=== PATIENT | male | born 1960 | race African-American/Black ===

== ENCOUNTER → 2019-12-28 | Outpatient (CLI) | payer MEDICARE, OTHER ==
--- NOTE | 2019-12-28 10:08 | CT ---
EXAMINATION TYPE: CT abdomen pelvis w con DATE OF EXAM: 12/28/2019 COMPARISON: Bilateral scrotal ultrasound 2013. HISTORY: gross hematuria CT DLP: 2470.8 mGycm, Automated Exposure Control for Dose Reduction was Utilized. CONTRAST: CT scan of the abdomen and pelvis is performed with oral and with IV Contrast, patient injected with 100 mL of Isovue 300. FINDINGS: LUNG BASES: Coronary artery calcification in the distal LAD is identified. There is 3 mm calcified no dule or granuloma anterior right lung base. LIVER/GB: No significant abnormality is appreciated. PANCREAS: No significant abnormality is seen. SPLEEN: No significant abnormality is seen. ADRENALS: No significant abnormality is seen. KIDNEYS: Symmetrical corticomedullary uptake and excretion without hydronephrosis seen bilaterally. No suspicious solid or cystic mass in either kidney. BOWEL: Oral contrast reaches level of the proximal sigmoid colon. There is no suspicious small or lar ge bowel dilatation. Small hiatal hernia is present. Normal-appearing appendix from base of cecum in the right lower quadrant. PROSTATE/SEMINAL VESICLES: Some central benign calcifications in the normal sized prostate gland. LYMPH NODES: No greater than 1cm abdominal or pelvic lymph nodes are appreciated. OSSEOUS STRUCTURES: [id number] multilevel disc space narrowing and vacuum disc phenomenon L2- L3 through the L4-L5 levels. Herniated disc with gas effaces the anterior thecal sac at L2-L3 level. Posterior spur disc complex effacing the anterior thecal sac L4-L5 level. Sacralized left L5 segment noted. Multilevel facet arthropathy in the mid to lower lumbar spine. OTHER: Mild/moderate calcified plaque of the abdominal aorta extends into branch vessels. Moderate to large sized bilateral scrotal fluid collection or hydroceles redemonstrated correlates with 2014 ult rasound. IMPRESSION: Source of hematuria not identified. No suspicious acute findings seen.
== END | disposition home or self-care (01) ==
LOC: RADCTMAIN 07:03
PROVIDERS: ATTEND Family Medicine
DX: R31.9 Hematuria, unspecified (principal)
CPT/HCPCS: 74177; Q9967

== ENCOUNTER 2022-08-01 13:43 | Emergency (ER) | payer MEDICARE, OTHER ==
[2022-08-01 13:52] VITALS: TEMP 98.4
[2022-08-01] MEDS ORDERED: ACETAMINOPHEN TAB 500 MG TAB PO STA (14:17)
--- NOTE | 2022-08-01 14:28 | ED ---
URI HPI - General Chief Complaint: Upper Respiratory Infection Stated Complaint: Abd pain Time Seen by Provider: 08/01/22 13:55 Source: patient, RN notes reviewed Mode of arrival: ambulatory Limitations: no limitations - History of Present Illness Initial Comments: 61-year-old male presents emergency Department chief complaint of cough and cold-like symptoms. Patient states he's been sick for 3 days states he has mild congestion, minimal cough no shortness of breath or chest pain. Patient states that he believes had fever, chills and sweats he does admit that he's had sore throat patient denies any other associated symptoms no associated sick contacts. - Related Data Home Medications Medication Instructions Recorded Confirmed Finasteride [Proscar] 5 mg PO DAILY 08/01/22 08/01/22 Ibuprofen [Motrin] 800 mg PO BID PRN 08/01/22 08/01/22 Latanoprost [Latanoprost 0.005%] 1 drop BOTH EYES HS 08/01/22 08/01/22 Simvastatin [Zocor] 20 mg PO DAILY 08/01/22 08/01/22 Tamsulosin HCl [Flomax] 0.4 mg PO DAILY 08/01/22 08/01/22 amLODIPine [Norvasc] 10 mg PO DAILY 08/01/22 08/01/22 lisinopriL [Zestril] 20 mg PO DAILY 08/01/22 08/01/22 Previous Rx's Medication Instructions Recorded Azithromycin [Zithromax Z Pack] 0 tab PO DIRECTED #6 tab 08/01/22 Allergies Allergy/AdvReac Type Severity Reaction Status Date / Time Penicillins Allergy Severe Unknown Verified 08/01/22 13:52 Review of Systems ROS Statement: Those systems with pertinent positive or pertinent negative responses have been documented in the HPI. ROS Other: All systems not noted in ROS Statement are negative. Past Medical History Past Medical History: CVA/TIA, Hypertension History of Any Multi-Drug Resistant Organisms: MRSA, None Reported Date of last positivie culture/infection: 01/30/2013 MDRO Source:: left leg and back Past Surgical History: Tonsillectomy Past Anesthesia/Blood Transfusion Reactions: No Reported Reaction Past Psychological History: No Psychological Hx Reported Smoking Status: Current every day smoker Past Alcohol Use History: None Reported Past Drug Use History: None Reported - Past Family History Father Family Medical History: Cancer Mother Family Medical History: Cancer Sister(s) Family Medical History: Cancer General Exam Limitations: no limitations General appearance: alert, in no apparent distress Head exam: Present: atraumatic, normocephalic, normal inspection Eye exam: Present: normal appearance, PERRL, EOMI. Absent: scleral icterus, conjunctival injection, periorbital swelling ENT exam: Present: mucous membranes moist. Absent: normal oropharynx Neck exam: Present: normal inspection. Absent: tenderness, meningismus, lymphadenopathy Respiratory exam: Present: normal lung sounds bilaterally. Absent: respiratory distress, wheezes, rales, rhonchi, stridor Cardiovascular Exam: Present: regular rate, normal rhythm, normal heart sounds. Absent: systolic murmur, diastolic murmur, rubs, gallop, clicks Course Vital Signs 08/01/22 13:48 Temperature 98.4 F Pulse Rate 122 H Respiratory 18 Rate Blood Pressure 123/83 O2 Sat by Pulse 97 Oximetry Medical Decision Making - Medical Decision Making Was pt. sent in by a medical professional or institution ([facility]YST[facility] Bloom, INBOUND CALL CENTER AGENT, urgent care, hospital, or care home...) When possible be specific @ -None Did you speak to anyone other than the patient for history (EMS, parent, family, police, friend...)? What history was obtained from this source @ -No Did you review nursing and triage notes (agree or disagree)? Why? @ -I reviewed and agree with nursing and triage notes Were old charts reviewed (outside hosp., previous admission, EMS record, old EKG, old radiological studies, urgent care reports/EKG's, care home records)? Report findings @ -No old charts were reviewed Differential Diagnosis (chest pain, altered mental status, abdominal pain women, abdominal pain men, vaginal bleeding, weakness, fever, dyspnea, syncope, he adache, dizziness, GI bleed, back pain, seizure, CVA, palpatations, mental health, musculoskeletal)? @ -URI, pneumonia, bronchitis, strep pharyngitis, RSV, covid 19 EKG interpreted by me (3pts min.). @ -As above X-rays interpreted by me (1pt min.). @ -Chest x-ray shows no acute process CT interpreted by me (1pt min.). @ -None done U/S interpreted by me (1pt. min.). @ -None done What testing was considered but not performed or refused? (CT, X-rays, U/S, labs)? Why? @ -None What meds were considered but not given or refused? Why? @ -None Did you discuss the management of the patient with other professionals (professionals i.e. , PA, INBOUND CALL CENTER AGENT, lab, RT, psych nurse, home health care social worker, flue blower, teacher, police commanding officer, case picker)? Give summary @ -No Was smoking cessation discussed for >3mins.? @ -No Was critical care preformed (if so, how long)? @ -No Were there social determinants of health that impacted care today? How? (Homelessness, low income, unemployed, alcoholism, drug addiction, transportation, low edu. Level, literacy, decrease access to med. care, penitentiary, rehab)? @ -No Was there de-escalation of care discussed even if they declined (Discuss DNR or withdrawal of care, Hospice)? DNR status @ -No What co-morbidities impacted this encounter? (DM, HTN, Smoking, COPD, CAD, Cancer, CVA, ARF, Chemo, Hep., AIDS, mental health diagnosis, sleep apnea, morbid obesity)? @ -None Was patient admitted / discharged? Hospital course, mention meds given and route, prescriptions, significant lab abnormalities, going to OR and other pertinent info. @ -Discharge patient has negative swab, x-ray doesn't show definite pneumonia, possible early changes patient treated for tracheobronchitis return parameters were discussed. Undiagnosed new problem with uncertain prognosis? @ -No Drug Therapy requiring intensive monitoring for toxicity (Heparin, Nitro, Insulin, Cardizem)? @ -No Were any procedures done? @ -No Diagnosis/symptom? @ -Tracheobronchitis Acute, or Chronic, or Acute on Chronic? @ -Acute Uncomplicated (without systemic symptoms) or Complicated (systemic symptoms)? @ -Uncomplicated Side effects of treatment? @ -No Exacerbation, Progression, or Severe Exacerbation? @ -No Poses a threat to life or bodily function? How? (Chest pain, [place], [place], pneumonia, PE, COPD, DKA, ARF, appy, cholecystitis, CVA, Diverticulitis, Homicidal, Suicidal, threat to staff... and all critical care pts) @ -No - Lab Data Lab Results 08/01/22 08/01/22 Range/Units 14:37 14:37 Influenza Type A (PCR) Not Detected (Not Detectd) Influenza Type B (PCR) Not Detected (Not Detectd) RSV (PCR) Not Detected (Not Detectd) SARS-CoV-2 (PCR) Not Detected (Not Detectd) Group A Strep (PCR) NOT DETECTED (Not Detectd) Disposition Clinical Impression: Tracheobronchitis Disposition: HOME SELF-CARE Condition: Stable Instructions (If sedation given, give patient instructions): Upper Respiratory Infection (ED) Additional Instructions: Please return to the Emergency Department if symptoms worsen or any other concerns. Prescriptions: Azithromycin [Zithromax Z Pack] 0 tab PO DIRECTED #6 tab Is patient prescribed a controlled substance at d/c from ED?: No Referrals: David Dempsey III, MD [Primary Care Provider] - 1-2 days Time of Disposition: 15:49
--- NOTE | 2022-08-01 14:33 | XR ---
EXAMINATION TYPE: XR chest 2V DATE OF EXAM: 08/01/2022 COMPARISON: NONE TECHNIQUE: PA and lateral views submitted. HISTORY: Shortness of breath FINDINGS: The lungs are clear and there is no pneumothorax, pleural effusion, or focal pneumonia. Heart size normal and no overt failure. Osseous structures demonstrate hypertrophic and degenerative changes of the spine. IMPRESSION: 1. No acute process.
[2022-08-01 16:28] VITALS: BP 124/75; PULSE 69; RESP 22
== END 2022-08-01 16:30 | disposition home or self-care (01) ==
LOC: EC 13:43
DX: J40 Bronchitis, not specified as acute or chronic (principal); I10 Essential (primary) hypertension; F17.200 Nicotine dependence, unspecified, uncomplicated; Z20.822 Contact with and (suspected) exposure to COVID-19; Z86.73 Personal history of transient ischemic attack (TIA), and cerebral infarction without residual deficits; Z79.899 Other long term (current) drug therapy; Z88.0 Allergy status to penicillin
CPT/HCPCS: 71046; 87636; 87651; 99284

== ENCOUNTER 2022-08-02 18:11 | Inpatient (IN) | payer MEDICARE, OTHER ==
[2022-08-02] MEDS ORDERED: SODIUM CHLORIDE 0.9% 1,000 ML IV STA (18:30)
[2022-08-02] MEDS ORDERED: SODIUM CHLORIDE 0.9% 1,000 ML IV ONE (18:31)
[2022-08-02 18:32] LABS: Glucose,Whole Blood >600 mg/dL (70-110)
--- NOTE | 2022-08-02 18:37 | ED ---
General Adult HPI - General Chief complaint: Shortness of Breath Stated complaint: sob Time Seen by Provider: 08/02/22 18:24 Source: patient, RN notes reviewed, old records reviewed Mode of arrival: ambulatory Limitations: altered mental status - History of Present Illness Initial comments: 61-year-old male presenting with weakness and confusion. History is obtained from the patient's daughter who is at bedside. He's had 6 previous CVA over the past several days he's had cough and upper respiratory symptoms. Today he was somewhat more confused than normal and appeared to be breathing rapidly.. History is very limited. - Related Data Home Medications Medication Instructions Recorded Confirmed Finasteride [Proscar] 5 mg PO DAILY 08/01/22 08/02/22 Ibuprofen [Motrin] 800 mg PO BID PRN 08/01/22 08/02/22 Latanoprost [Latanoprost 0.005%] 1 drop BOTH EYES HS 08/01/22 08/02/22 Simvastatin [Zocor] 20 mg PO DAILY 08/01/22 08/02/22 Tamsulosin HCl [Flomax] 0.4 mg PO DAILY 08/01/22 08/02/22 amLODIPine [Norvasc] 10 mg PO DAILY 08/01/22 08/02/22 lisinopriL [Zestril] 20 mg PO DAILY 08/01/22 08/02/22 Azithromycin [Zithromax Z Pack] See Taper PO DAILY 08/02/22 08/02/22 Allergies Allergy/AdvReac Type Severity Reaction Status Date / Time Penicillins Allergy Severe Burgos on Verified 08/02/22 21:10 skin Review of Systems ROS Statement: Those systems with pertinent positive or pertinent negative responses have been documented in the HPI. ROS Other: All systems not noted in ROS Statement are negative. Past Medical History Past Medical History: CVA/TIA, Hypertension History of Any Multi-Drug Resistant Organisms: MRSA, None Reported Date of last positivie culture/infection: 01/30/2013 MDRO Source:: left leg and back Past Surgical History: Tonsillectomy Past Anesthesia/Blood Transfusion Reactions: No Reported Reaction Past Psychological History: No Psychological Hx Reported Smoking Status: Current every day smoker Past Alcohol Use History: None Reported Past Drug Use History: None Reported - Past Family History Father Family Medical History: Cancer Mother Family Medical History: Cancer Sister(s) Family Medical History: Cancer General Exam Limitations: no limitations General appearance: lethargic, in distress Head exam: Present: atraumatic, normocephalic Eye exam: Present: normal appearance, PERRL ENT exam: Present: mucous membranes dry Respiratory exam: Present: other (Tachypnea with good air entry) Cardiovascular Exam: Present: normal rhythm, tachycardia GI/Abdominal exam: Present: soft. Absent: distended, tenderness, guarding, rebound Extremities exam: Present: normal inspection, normal capillary refill. Absent: pedal edema, calf tenderness Neurological exam: Absent: alert, oriented X3 Skin exam: Present: warm, dry, intact Course Vital Signs 08/02/22 08/02/22 08/02/22 18:12 19:07 20:16 Temperature 97.9 F Pulse Rate 118 H 101 H 98 Respiratory 24 24 22 Rate Blood Pressure 76/53 123/52 114/73 O2 Sat by Pulse 96 98 98 Oximetry 08/02/22 08/02/22 08/03/22 22:47 23:57 00:00 Temperature 97.9 F Pulse Rate 108 H 99 98 Respiratory 28 H 19 12 Rate Blood Pressure 93/54 89/53 O2 Sat by Pulse 95 88 L Oximetry - Reevaluation(s) Reevaluation #1: 08/02/22 22:[address] Jurado, will admit to ICU EKG Findings - EKG Comments: EKG Findings:: Sinus tachycardia rate of 1:15, MT interval 123 QRS duration 93, QTC [address] segment elevation Medical Decision Making - Medical Decision Making Was pt. sent in by a medical professional or institution (, PA, COMMISSARY WORKER, urgent care, hospital, or alf...) When possible be specific @ -No Did you speak to anyone other than the patient for history (EMS, parent, family, police, friend...)? What history was obtained from this source @ -No Did you review nursing and triage notes (agree or disagree)? Why? @ -I reviewed and agree with nursing and triage notes Were old charts reviewed (outside hosp., previous admission, EMS record, old EKG, old radiological studies, urgent care reports/EKG's, alf records)? Report findings @ -[Reviewed previous ER visits Differential Diagnosis (chest pain, altered mental status, abdominal pain women, abdominal pain men, vaginal bleeding, weakness, fever, dyspnea, syncope, headache, dizziness, GI bleed, back pain, seizure, CVA, palpatations, mental health, musculoskeletal)? @ -Differential Weakness: Hypoglycemia, shock, sepsis, hyponatremia, anemia, infection, OK, ETOH, adverse medicine reaction, overdose, stroke, this is not meant to be an all-inclusive list. EKG interpreted by me (3pts min.). @ -As above X-rays interpreted by me (1pt min.). @Negative for acute cardiopulmonary findings CT interpreted by me (1pt min.). @ -None done U/S interpreted by me (1pt. min.). @ -None done What testing was considered but not performed or refused? (CT, X-rays, U/S, labs)? Why? @ -None What meds were considered but not given or refused? Why? @ -None Did you discuss the management of the patient with other professionals (professionals i.e. , PA, COMMISSARY WORKER, lab, RT, psych nurse, social media content manager, sleeve ironer, teacher, disability liaison officer, mattress spring encaser)? Give summary @Case discussed with Anurag dunbar for [facility] Was smoking cessation discussed for >3mins.? @ -No Was critical care preformed (if so, how long)? @ -[yes Were there social determinants of health that impacted care today? How? (Homeles sness, low income, unemployed, alcoholism, drug addiction, transportation, low edu. Level, literacy, decrease access to med. care, prison, rehab)? @ -No Was there de-escalation of care discussed even if they declined (Discuss DNR or withdrawal of care, Hospice)? DNR status @ -No What co-morbidities impacted this encounter? (DM, HTN, Smoking, COPD, CAD, Cancer, CVA, ARF, Chemo, Hep., AIDS, mental health diagnosis, sleep apnea, morbid obesity)? @ -[CVA Was patient admitted / discharged? Hospital course, mention meds given and route, prescriptions, significant lab abnormalities, going to OR and other pertinent info. @61-year-old male presenting with chief complaint of dyspnea, weakness. Patient has Kussmaul respiration, concern for new onset diabetes and DKA. Blood sugar read high. Laboratory testing is performed which reveals a leukocytosis which I suspect is reactive at 23. His potassium is 6.0 this is treated with IV fluids and IV insulin. He is acidotic from multiple sources including diabetic ketoacidosis, lactic acidosis and uremia secondary to acute renal failure with a creatinine of 3.45. His blood sugars 1357. He is acetone positive. No urine output throughout his initial 2 hours in the emergency department. Johnson catheter will be placed. He will be continued on normal saline and IV insulin. He's admitted to internal medicine. Vital signs have significant improvement while in the emergency department. Undiagnosed new problem with uncertain prognosis? @ -No Drug Therapy requiring intensive monitoring for toxicity (Heparin, Nitro, Insulin, Cardizem)? @ -No Were any procedures done? @ -No Diagnosis/symptom? @New-onset diabetes, DKA, acute renal failure Acute, or Chronic, or Acute on Chronic? @Acute Uncomplicated (without systemic symptoms) or Complicated (systemic symptoms)? @Complicated Side effects of treatment? @ -No Exacerbation, Progression, or Severe Exacerbation? @ -No Poses a threat to life or bodily function? How? (Chest pain, USA, OK, pneumonia, PE, COPD, DKA, ARF, appy, cholecystitis, CVA, Diverticulitis, Homicidal, Suicidal, threat to staff... and all critical care pts) @ -[Yes, DKA, hypovolemia, shock - Lab Data Result diagrams: 08/06/22 06:43 08/06/22 06:43 Lab Results 08/02/22 08/02/22 08/02/22 Range/Units 18:31 18:33 18:33 WBC 23.4 H (3.8-10.6) k/uL RBC 5.17 (4.30-5.90) m/uL Hgb 15.5 (13.0-17.5) gm/dL Hct 54.6 H (39.0-53.0) % MCV 105.8 H (80.0-100.0) fL MCH 30.0 (25.0-35.0) pg MCHC 28.4 L (31.0-37.0) g/dL RDW 13.0 (11.5-15.5) % Plt Count 226 (150-450) k/uL MPV 10.1 Neutrophils % 91 % Lymphocytes % 3 % Monocytes % 4 % Eosinophils % 1 % Basophils % 0 % Neutrophils # 21.2 H (1.3-7.7) k/uL Lymphocytes # 0.8 L (1.0-4.8) k/uL Monocytes # 1.0 (0-1.0) k/uL Eosinophils # 0.2 (0-0.7) k/uL Basophils # 0.0 (0-0.2) k/uL Hypochromasia Marked Macrocytosis Moderate PT 10.6 (9.0-12.0) sec INR 1.0 (<1.2) APTT 19.7 L (22.0-30.0) sec VBG pH (7.31-7.41) VBG pCO2 (37-51) mmHg VBG HCO3 (24-28) mmol/L Sodium (137-145) mmol/L Potassium (3.5-5.1) mmol/L Chloride (98-107) mmol/L Carbon Dioxide (22-30) mmol/L Anion Gap mmol/L BUN (9-20) mg/dL Creatinine (0.66-1.25) mg/dL Est GFR (CKD-EPI)AfAm (>60 ml/min/1.73 sqM) Est GFR (CKD-EPI)NonAf (>60 ml/min/1.73 sqM) Glucose (74-99) mg/dL POC Glucose (mg/dL) >600 H (70-110) mg/dL POC Glu Rack Pusher ID Macey Morton Lactic Ac Sepsis Rflx Plasma Lactic Acid Rom (0.7-2.0) mmol/L Calcium (8.4-10.2) mg/dL Magnesium (1.6-2.3) mg/dL Total Bilirubin (0.2-1.3) mg/dL AST (17-59) U/L ALT (4-49) U/L Alkaline Phosphatase (38-126) U/L Troponin I (0.000-0.034) ng/mL Total Protein (6.3-8.2) g/dL Albumin (3.5-5.0) g/dL Urine Color Urine Appearance (Clear) Urine pH (5.0-8.0) Ur Specific Bath (1.001-1.035) Urine Protein (Negative) Urine Glucose (UA) (Negative) Urine Ketones (Negative) Urine Blood (Negative) Urine Nitrite (Negative) Urine Bilirubin (Negative) Urine Urobilinogen (<2.0) mg/dL Ur Leukocyte Esterase (Negative) Acetone, Qual (Negative) Influenza Type A (PCR) (Not Detectd) Influenza Type B (PCR) (Not Detectd) RSV (PCR) (Not Detectd) SARS-CoV-2 (PCR) (Not Detectd) 08/02/22 08/02/22 08/02/22 Range/Units 18:33 18:33 18:33 WBC (3.8-10.6) k/uL RBC (4.30-5.90) m/uL Hgb (13.0-17.5) gm/dL Hct (39.0-53.0) % MCV (80.0-100.0) fL MCH (25.0-35.0) pg MCHC (31.0-37.0) g/dL RDW (11.5-15.5) % Plt Count (150-450) k/uL MPV Neutrophils % % Lymphocytes % % Monocytes % % Eosinophils % % Basophils % % Neutrophils # (1.3-7.7) k/uL Lymphocytes # (1.0-4.8) k/uL Monocytes # (0-1.0) k/uL Eosinophils # (0-0.7) k/uL Basophils # (0-0.2) k/uL Hypochromasia Macrocytosis PT (9.0-12.0) sec INR (<1.2) APTT (22.0-30.0) sec VBG pH (7.31-7.41) VBG pCO2 (37-51) mmHg VBG HCO3 (24-28) mmol/L Sodium 134 L (137-145) mmol/L Potassium 6.0 H (3.5-5.1) mmol/L Chloride 92 L (98-107) mmol/L Carbon Dioxide 16 L (22-30) mmol/L Anion Gap 26 mmol/L BUN 68 H (9-20) mg/dL Creatinine 3.45 H (0.66-1.25) mg/dL Est GFR (CKD-EPI)AfAm 21 (>60 ml/min/1.73 sqM) Est GFR (CKD-EPI)NonAf 18 (>60 ml/min/1.73 sqM) Glucose 1357 H* (74-99) mg/dL POC Glucose (mg/dL) (70-110) mg/dL POC Glu Rack Pusher ID Lactic Ac Sepsis Rflx Plasma Lactic Acid Rom 3.8 H* (0.7-2.0) mmol/L Calcium 9.7 (8.4-10.2) mg/dL Magnesium 3.3 H (1.6-2.3) mg/dL Total Bilirubin 0.7 (0.2-1.3) mg/dL AST 21 (17-59) U/L ALT 24 (4-49) U/L Alkaline Phosphatase 153 H (38-126) U/L Troponin I 0.027 (0.000-0.034) ng/mL Total Protein 6.2 L (6.3-8.2) g/dL Albumin 4.1 (3.5-5.0) g/dL Urine Color Urine Appearance (Clear) Urine pH (5.0-8.0) Ur Specific Bath (1.001-1.035) Urine Protein (Negative) Urine Glucose (UA) (Negative) Urine Ketones (Negative) Urine Blood (Negative) Urine Nitrite (Negative) Urine Bilirubin (Negative) Urine Urobilinogen (<2.0) mg/dL Ur Leukocyte Esterase (Negative) Acetone, Qual Positive (Negative) Influenza Type A (PCR) (Not Detectd) Influenza Type B (PCR) (Not Detectd) RSV (PCR) (Not Detectd) SARS-CoV-2 (PCR) (Not Detectd) 08/02/22 08/02/22 08/02/22 Range/Units 18:33 18:33 18:33 WBC (3.8-10.6) k/uL RBC (4.30-5.90) m/uL Hgb (13.0-17.5) gm/dL Hct (39.0-53.0) % MCV (80.0-100.0) fL MCH (25.0-35.0) pg MCHC (31.0-37.0) g/dL RDW (11.5-15.5) % Plt Count (150-450) k/uL MPV Neutrophils % % Lymphocytes % % Monocytes % % Eosinophils % % Basophils % % Neutrophils # (1.3-7.7) k/uL Lymphocytes # (1.0-4.8) k/uL Monocytes # (0-1.0) k/uL Eosinophils # (0-0.7) k/uL Basophils # (0-0.2) k/uL Hypochromasia Macrocytosis PT (9.0-12.0) sec INR (<1.2) APTT (22.0-30.0) sec VBG pH 7.32 (7.31-7.41) VBG pCO2 38 (37-51) mmHg VBG HCO3 19 L (24-28) mmol/L Sodium (137-145) mmol/L Potassium (3.5-5.1) mmol/L Chloride (98-107) mmol/L Carbon Dioxide (22-30) mmol/L Anion Gap mmol/L BUN (9-20) mg/dL Creatinine (0.66-1.25) mg/dL Est GFR (CKD-EPI)AfAm (>60 ml/min/1.73 sqM) Est GFR (CKD-EPI)NonAf (>60 ml/min/1.73 sqM) Glucose (74-99) mg/dL POC Glucose (mg/dL) (70-110) mg/dL POC Glu Rack Pusher ID Lactic Ac Sepsis Rflx Plasma Lactic Acid Rom (0.7-2.0) mmol/L Calcium (8.4-10.2) mg/dL Magnesium (1.6-2.3) mg/dL Total Bilirubin (0.2-1.3) mg/dL AST (17-59) U/L ALT (4-49) U/L Alkaline Phosphatase (38-126) U/L Troponin I (0.000-0.034) ng/mL Total Protein (6.3-8.2) g/dL Albumin (3.5-5.0) g/dL Urine Color Light Yellow Urine Appearance Clear (Clear) Urine pH 5.0 (5.0-8.0) Ur Specific Bath 1.027 (1.001-1.035) Urine Protein Negative (Negative) Urine Glucose (UA) 4+ H (Negative) Urine Ketones 1+ H (Negative) Urine Blood Negative (Negative) Urine Nitrite Negative (Negative) Urine Bilirubin Negative (Negative) Urine Urobilinogen <2.0 (<2.0) mg/dL Ur Leukocyte Esterase Negative (Negative) Acetone, Qual (Negative) Influenza Type A (PCR) Not Detected (Not Detectd) Influenza Type B (PCR) Not Detected (Not Detectd) RSV (PCR) Not Detected (Not Detectd) SARS-CoV-2 (PCR) Not Detected (Not Detectd) 08/02/22 Range/Units 19:25 WBC (3.8-10.6) k/uL RBC (4.30-5.90) m/uL Hgb (13.0-17.5) gm/dL Hct (39.0-53.0) % MCV (80.0-100.0) fL MCH (25.0-35.0) pg MCHC (31.0-37.0) g/dL RDW (11.5-15.5) % Plt Count (150-450) k/uL MPV Neutrophils % % Lymphocytes % % Monocytes % % Eosinophils % % Basophils % % Neutrophils # (1.3-7.7) k/uL Lymphocytes # (1.0-4.8) k/uL Monocytes # (0-1.0) k/uL Eosinophils # (0-0.7) k/uL Basophils # (0-0.2) k/uL Hypochromasia Macrocytosis PT (9.0-12.0) sec INR (<1.2) APTT (22.0-30.0) sec VBG pH (7.31-7.41) VBG pCO2 (37-51) mmHg VBG HCO3 (24-28) mmol/L Sodium (137-145) mmol/L Potassium (3.5-5.1) mmol/L Chloride (98-107) mmol/L Carbon Dioxide (22-30) mmol/L Anion Gap mmol/L BUN (9-20) mg/dL Creatinine (0.66-1.25) mg/dL Est GFR (CKD-EPI)AfAm (>60 ml/min/1.73 sqM) Est GFR (CKD-EPI)NonAf (>60 ml/min/1.73 sqM) Glucose (74-99) mg/dL POC Glucose (mg/dL) (70-110) mg/dL POC Glu Rack Pusher ID Lactic Ac Sepsis Rflx Y Plasma Lactic Acid Rom (0.7-2.0) mmol/L Calcium (8.4-10.2) mg/dL Magnesium (1.6-2.3) mg/dL Total Bilirubin (0.2-1.3) mg/dL AST (17-59) U/L ALT (4-49) U/L Alkaline Phosphatase (38-126) U/L Troponin I (0.000-0.034) ng/mL Total Protein (6.3-8.2) g/dL Albumin (3.5-5.0) g/dL Urine Color Urine Appearance (Clear) Urine pH (5.0-8.0) Ur Specific Bath (1.001-1.035) Urine Protein (Negative) Urine Glucose (UA) (Negative) Urine Ketones (Negative) Urine Blood (Negative) Urine Nitrite (Negative) Urine Bilirubin (Negative) Urine Urobilinogen (<2.0) mg/dL Ur Leukocyte Esterase (Negative) Acetone, Qual (Negative) Influenza Type A (PCR) (Not Detectd) Influenza Type B (PCR) (Not Detectd) RSV (PCR) (Not Detectd) SARS-CoV-2 (PCR) (Not Detectd) Critical Care Time Critical Care Time: Yes Total Critical Care Time: 35 Disposition Clinical Impression: Acute renal failure, DKA (diabetic ketoacidosis), Lactic acidosis, Hyperosmolar hyperglycemic state (HHS) Disposition: ADMITTED IP TO THIS HOSP Condition: Serious Is patient prescribed a controlled substance at d/c from ED?: No Time of Disposition: 20:41
[2022-08-02 18:55] LABS: VBG PH 7.32 (7.31-7.41)
[2022-08-02 18:57] LABS: Basophils % (A) 0 %; Eosinophils # (A) 0.2 k/uL (0-0.7); Eosinophils % (A) 1 %; HCT 54.6 % (39.0-53.0); HGB 15.5 gm/dL (13.0-17.5); Hypochromasia Marked; Lymphocytes # (A) 0.8 k/uL (1.0-4.8); Lymphocytes % (A) 3 %; MCHC 28.4 g/dL (31.0-37.0); MCV 105.8 fL (80.0-100.0); Macrocytosis Moderate; Mean Platelet Volume 10.1; Monocytes % (A) 4 %; Neutrophils # (A) 21.2 k/uL (1.3-7.7); Neutrophils % (A) 91 %; Platelet Count 226 k/uL (150-450); RBC 5.17 m/uL (4.30-5.90); WBC 23.4 k/uL (3.8-10.6)
--- NOTE | 2022-08-02 19:02 | XR ---
EXAMINATION TYPE: XR chest 1V portable DATE OF EXAM: 08/02/2022 6:50 PM COMPARISON: Chest radiographs from 08/01/2022 TECHNIQUE: XR chest 1V portable Portable AP radiograph of the chest. CLINICAL INDICATION:Male, 61 years old with history of charlie; FINDINGS: Lungs/Pleura: There is no evidence of pleural effusion, focal consolidation, or pneumothorax. Pulmonary vascularity: Unremarkable. Heart/mediastinum: Cardiomediastinal silhouette is unremarkable. Musculoskeletal: No acute osseous pathology. Degenerative changes of the thoracic spine. IMPRESSION: No acute cardiopulmonary disease/process. No significant change from prior examination.
[2022-08-02 19:10] LABS: Prothrombin Time 10.6 sec (9.0-12.0)
[2022-08-02 19:22] LABS: ALT 24 U/L (4-49); AST 21 U/L (17-59); African American GFR (CKD) 21 (>60 ml/min/1.73 sqM); Albumin 4.1 g/dL (3.5-5.0); Alkaline Phosphatase 153 U/L (38-126); Anion Gap 26 mmol/L; Blood Urea Nitrogen 68 mg/dL (9-20); Calcium 9.7 mg/dL (8.4-10.2); Carbon Dioxide 16 mmol/L (22-30); Chloride 92 mmol/L (98-107); Magnesium 3.3 mg/dL (1.6-2.3); Non-African American GFR(CKD) 18 (>60 ml/min/1.73 sqM); Sodium 134 mmol/L (137-145); Total Bilirubin 0.7 mg/dL (0.2-1.3); Total Protein 6.2 g/dL (6.3-8.2)
[2022-08-02 19:27] LABS: Partial Thromboplastin Time 19.7 sec (22.0-30.0)
[2022-08-02] MEDS ORDERED: INSULIN REGULAR BOLUS (FROM DRIP BAG) IV ONE (20:00)
[2022-08-02] MEDS: SODIUM CHLORIDE 0.9% 1,000 ML IV SCH (20:14)
[2022-08-02 20:32] LABS: Glucose 1357 mg/dL (74-99)
[2022-08-02] MEDS: INSULIN REGULAR 100 UNIT in SODIUM CHLORIDE 0.9% 100 ML IV SCH (20:49)
[2022-08-02 21:30] LABS: Glucose,Whole Blood >600 mg/dL (70-110)
[2022-08-02 23:00] LABS: Glucose,Whole Blood >600 mg/dL (70-110)
[2022-08-02 23:08] LABS: Potassium 5.2 mmol/L (3.5-5.1)
[2022-08-02 23:57] LABS: Glucose,Whole Blood >600 mg/dL (70-110)
[2022-08-03] MEDS: SODIUM CHLORIDE 0.9% 1,000 ML IV SCH ×2 (00:41→06:11)
[2022-08-03 00:58] LABS: Appearance,Urine Clear (Clear); Bilirubin,Urine Negative (Negative); Blood,Urine Negative (Negative); Color,Urine Light Yellow; Glucose,Urine (UA) 4+ (Negative); Ketones,Urine 1+ (Negative); Leukocyte Esterase,Urine Negative (Negative); Nitrite,Urine Negative (Negative); Protein,Urine Negative (Negative); Specific Gravity,Urine 1.027 (1.001-1.035); Urobilinogen,Urine <2.0 mg/dL (<2.0)
[2022-08-03] MEDS ORDERED: HALOPERIDOL LACTATE 5 MG/ML 1 ML VIAL IVP ONE (01:58)
[2022-08-03 02:58] LABS: Phosphorus 3.2 mg/dL (2.5-4.5)
[2022-08-03 05:00] LABS: Glucose,Whole Blood 424 mg/dL (70-110)
[2022-08-03 06:05] LABS: Glucose,Whole Blood 308 mg/dL (70-110)
[2022-08-03] MEDS: INSULIN REGULAR 100 UNIT in SODIUM CHLORIDE 0.9% 100 ML IV SCH (06:26)
[2022-08-03 07:00] LABS: Glucose,Whole Blood 243 mg/dL (70-110)
[2022-08-03] MEDS ORDERED: D5-0.45% NACL WITH KCL 20MEQ/L 1,000 ML IV SCH (07:00)
[2022-08-03] MEDS ORDERED: ONDANSETRON 4 MG/2 ML VIAL IVP PRN (07:37)
[2022-08-03 08:05] LABS: Glucose,Whole Blood 187 mg/dL (70-110)
[2022-08-03 08:25] LABS: Calcium 9.2 mg/dL (8.4-10.2); Magnesium 3.3 mg/dL (1.6-2.3); Potassium 4.3 mmol/L (3.5-5.1)
[2022-08-03 08:50] LABS: Basophils % (A) 0 %; Eosinophils # (A) 0.1 k/uL (0-0.7); Eosinophils % (A) 0 %; HGB 14.2 gm/dL (13.0-17.5); Lymphocytes # (A) 1.8 k/uL (1.0-4.8); Lymphocytes % (A) 7 %; MCH 29.8 pg (25.0-35.0); MCHC 31.5 g/dL (31.0-37.0); Monocytes # (A) 1.2 k/uL (0-1.0); Monocytes % (A) 5 %; Neutrophils # (A) 20.3 k/uL (1.3-7.7); Neutrophils % (A) 86 %; Platelet Count 152 k/uL (150-450); RBC 4.75 m/uL (4.30-5.90); WBC 23.7 k/uL (3.8-10.6)
[2022-08-03 08:52] LABS: MCV 94.8 fL (80.0-100.0)
[2022-08-03] MEDS: TAMSULOSIN 0.4 MG CAP.ER.24H PO SCH (09:28)
[2022-08-03] MEDS: FINASTERIDE 5 MG TAB PO SCH (09:28)
[2022-08-03] MEDS: PANTOPRAZOLE 40 MG/10 ML VIAL IVP SCH (09:28)
[2022-08-03] MEDS: ATORVASTATIN 10 MG TAB PO SCH (09:28)
[2022-08-03 09:30] LABS: Glucose,Whole Blood 175 mg/dL (70-110)
[2022-08-03] MEDS: DEXTROSE 5% IN WATER 1,000 ML IV SCH ×2 (09:48→15:19)
--- NOTE | 2022-08-03 10:21 | P.NPCON ---
History of Present Illness - Reason for Consult acute renal failure - History of Present Illness Reason for consultation: Acute kidney injury History of present illness: Patient is a 61-year-old male seen in consultation for acute kidney injury. Patient's creatinine on admission was 2.45 and is down to 2.26 today. Patient's creatinine as of September 2016 was 0.9. Patient came to the hospital due to gener alized weakness and altered mental status. Patient was noted to be more confused. History is obtained from the chart as the patient is still quite lethargic and not answering questions appropriately. Patient does have history of multiple strokes in the past. I do see ibuprofen and his home medication list but is unclear as to how much he was taking. He was also on lisinopril. Patient was noted to be in DKA with blood glucose of above 1000 on admission. He is currently on insulin drip. Patient did receive normal saline boluses and was maintained half-normal saline up until this morning. He is now being switched over to D5W. Patient's sodium level this morning was 152. He is nonoliguric. Hemodynamically stable. Vital signs are stable. General: Sitting up in bed. HEENT: Head exam is unremarkable. On nasal cannula. LUNGS: No audible rhonchi or wheezes. HEART: Rate and Rhythm are regular. ABDOMEN: Soft, no distention. EXTREMITITES: No edema. Past Medical History Past Medical History: CVA/TIA, Hypertension History of Any Multi-Drug Resistant Organisms: MRSA, None Reported Date of last positivie culture/infection: 01/30/2013 MDRO Source:: left leg and back Past Surgical History: Tonsillectomy Past Anesthesia/Blood Transfusion Reactions: No Reported Reaction Smoking Status: Current every day smoker - Past Family History Father Family Medical History: Cancer Mother Family Medical History: Cancer Sister(s) Family Medical History: Cancer Medications and Allergies Home Medications Medication Instructions Recorded Confirmed Type Finasteride [Proscar] 5 mg PO DAILY 08/01/22 08/02/22 History Ibuprofen [Motrin] 800 mg PO BID PRN 08/01/22 08/02/22 History Latanoprost [Latanoprost 0.005%] 1 drop BOTH EYES HS 08/01/22 08/02/22 History Simvastatin [Zocor] 20 mg PO DAILY 08/01/22 08/02/22 History Tamsulosin HCl [Flomax] 0.4 mg PO DAILY 08/01/22 08/02/22 History amLODIPine [Norvasc] 10 mg PO DAILY 08/01/22 08/02/22 History lisinopriL [Zestril] 20 mg PO DAILY 08/01/22 08/02/22 History Azithromycin [Zithromax Z Pack] See Taper PO DAILY 08/02/22 08/02/22 History Allergies Allergy/AdvReac Type Severity Reaction Status Date / Time Penicillins Allergy Severe Burgos on Verified 08/02/22 21:10 skin Physical Exam Vitals: Vital Signs Temp Pulse Resp BP Pulse Ox 08/03/22 10:00 90 18 104/63 96 08/03/22 09:00 100 14 103/54 95 08/03/22 08:00 97.6 F 93 12 113/66 98 08/03/22 07:00 90 21 101/62 96 08/03/22 06:30 90 19 97 08/03/22 06:00 92 15 88/52 96 08/03/22 05:30 89 21 97 08/03/22 05:00 92 17 96/64 94 L 08/03/22 04:30 89 19 79/49 97 08/03/22 04:00 98 F 92 15 93/56 94 L 08/03/22 03:30 92 16 94 L 08/03/22 03:05 22 08/03/22 03:00 92 18 94/57 95 08/03/22 02:30 94 21 94 L 08/03/22 02:00 99 23 85/51 92 L 08/03/22 01:30 106 H 19 90 L 08/03/22 01:00 105 H 11 L 90/48 98 08/03/22 00:30 109 H 11 L 85/43 93 L 08/03/22 00:20 100 6 L 94 L 08/03/22 00:10 102 H 5 L 85/43 90 L 08/03/22 00:00 97.9 F 98 12 89/53 88 L 08/02/22 23:57 99 19 08/02/22 22:47 108 H 28 H 93/54 95 08/02/22 20:16 98 22 114/73 98 08/02/22 19:07 101 H 24 123/52 98 08/02/22 18:12 97.9 F 118 H 24 76/53 96 Intake and Output 08/02/22 08/03/22 08/03/22 22:59 06:59 14:59 Intake Total 1488.118 650 Output Total 360 280 Balance 1128.118 370 Intake: IV 1400 200 Sodium Chloride 0.9% 1, 1400 200 000 ml @ 200 mls/hr IV . Q5H [facility] Rx#:[id number] Intake, IV Titration 88.118 450 Amount D5-0.45% NaCl with KCl 450 20Meq/l 1,000 ml @ 150 mls/hr IV .Q6H40M [facility] Rx# :[id number] Insulin Regular 100 unit 88.118 In Sodium Chloride 0.9% 100 ml @ 0.1 UNITS/KG/HR 9.163 mls/hr IV .Q11H2M [facility] Rx#:[id number] Output: Urine 360 280 Other: Voiding Method Indwelling Catheter Indwelling Catheter Weight 90.718 kg 91.3 kg Results - Lab Results Most recent lab results Calcium 9.2 mg/dL (8.4-10.2) 08/03/22 07:50 Phosphorus 3.2 mg/dL (2.5-4.5) 08/03/22 02:00 Magnesium 3.3 mg/dL (1.6-2.3) H 08/03/22 07:50 08/03/22 07:50 08/03/22 07:50 Assessment and Plan Plan: Assessment: 1. Acute kidney injury mostly prerenal secondary to hypovolemia from severe hyp erglycemia. Creatinine 2.45 on admission is 2.26 today. Creatinine 0.9 in September 2016. No proteinuria on UA. 2. DKA maintained on IV fluids and insulin drip. 3. Hyperkalemia secondary to hyperglycemia and acidosis. 4. Anion gap metabolic acidosis secondary to DKA. Improved. 5. Hypernatremia from lack of oral water intake. 6. Benign hypertension. Controlled. Plan: Maintain D5W at 150 mL an hour. Repeat sodium level this evening. Check renal ultrasound. Avoid nephrotoxins. Continue to hold antihypertensives. Thank you for the consultation. I will continue to follow the patient with you during his hospital stay.
--- NOTE | 2022-08-03 10:22 | P.CNPUL ---
History of Present Illness Consult date: 08/03/22 Requesting physician: Lesvia Mendoza Reason for consult: other (Critical care management) Chief complaint: Weakness and confusion History of present illness: This is a 61-year-old male patient with a previous history of CVAs, hypertension, benign prosthetic hyperplasia, MRSA infection in the left leg and back in 2012. He also has chronic and ongoing tobacco dependence of greater than 40 years. He had recently been having issues with upper respiratory tract symptoms including cough congestion. He developed weakness and confusion and was brought into the emergency room yesterday. Influenza screen negative. RSV screen negative. COVID-19 screen negative. He was found to have new onset di abetes mellitus with diabetic ketoacidosis with anion gap metabolic acidosis. His glucose was 1357. Initial labs revealed a white count of 23.4. Hemoglobin 15.5. Sodium 134. Potassium 6.0. Bicarb 16. Anion gap 26. BUN 68. Creatinine 3.45. Acetone positive. Chest x-ray revealed no acute pulmonary process. He was initiated on the DKA protocol and admitted to the intensive care unit where he is seen today in consultation. He is currently resting comfortably in bed. Awake and alert in no acute distress. His speech is somewhat garbled. Unsure of his baseline based on his previous CVAs. He is maintaining O2 saturations in the 90s on 4 L/m per nasal cannula. He does have symptoms a few scattered rhonchi. He is currently on D5.45 with 20 of KCl at 50 MLS per hour. He is on an insulin drip at 9 units per hour. Review of Systems REVIEW OF SYSTEMS: CONSTITUTIONAL: Denies weakness. Denies any recent significant weight loss or weight gain. EYES: Denies change in vision. EARS, NOSE, MOUTH, THROAT: Denies headaches, denies sore throat. CARDIOVASCULAR: Denies chest pain, palpitations or syncopal episodes. RESPIRATORY: Positive for shortness of breath, cough, congestion no hemoptysis. GASTROINTESTINAL: Denies change in appetite, denies abdominal pain GENITOURINARY: Denies hematuria, denies infections. MUSKULOSKELETAL: Denies pain, denies swelling. INTEGUMENTARY: Denies rash, denies eczema. NEUROLOGICAL: Denies recent memory loss, no recent seizure activity. PSYCHIATRIC: Denies anxiety, denies depression. HEMATOLOGIC/LYMPHATIC: Denies anemia, denies enlarged lymph nodes. Past Medical History Past Medical History: CVA/TIA, Hypertension History of Any Multi-Drug Resistant Organisms: MRSA, None Reported Date of last positivie culture/infection: 01/30/2013 MDRO Source:: left leg and back Past Surgical History: Tonsillectomy Past Anesthesia/Blood Transfusion Reactions: No Reported Reaction Smoking Status: Current every day smoker - Past Family History Father Family Medical History: Cancer Mother Family Medical History: Cancer Sister(s) Family Medical History: Cancer Medications and Allergies Home Medications Medication Instructions Recorded Confirmed Type Finasteride [Proscar] 5 mg PO DAILY 08/01/22 08/02/22 History Ibuprofen [Motrin] 800 mg PO BID PRN 08/01/22 08/02/22 History Latanoprost [Latanoprost 0.005%] 1 drop BOTH EYES HS 08/01/22 08/02/22 History Simvastatin [Zocor] 20 mg PO DAILY 08/01/22 08/02/22 History Tamsulosin HCl [Flomax] 0.4 mg PO DAILY 08/01/22 08/02/22 History amLODIPine [Norvasc] 10 mg PO DAILY 08/01/22 08/02/22 History lisinopriL [Zestril] 20 mg PO DAILY 08/01/22 08/02/22 History Azithromycin [Zithromax Z Pack] See Taper PO DAILY 08/02/22 08/02/22 History Allergies Allergy/AdvReac Type Severity Reaction Status Date / Time Penicillins Allergy Severe Burgos on Verified 08/02/22 21:10 skin Physical Exam Vitals: Vital Signs Temp Pulse Resp BP Pulse Ox 08/03/22 10:00 90 18 104/63 96 08/03/22 09:00 100 14 103/54 95 08/03/22 08:00 97.6 F 93 12 113/66 98 08/03/22 07:00 90 21 101/62 96 08/03/22 06:30 90 19 97 08/03/22 06:00 92 15 88/52 96 08/03/22 05:30 89 21 97 08/03/22 05:00 92 17 96/64 94 L 08/03/22 04:30 89 19 79/49 97 08/03/22 04:00 98 F 92 15 93/56 94 L 08/03/22 03:30 92 16 94 L 08/03/22 03:05 22 08/03/22 03:00 92 18 94/57 95 08/03/22 02:30 94 21 94 L 08/03/22 02:00 99 23 85/51 92 L 08/03/22 01:30 106 H 19 90 L 08/03/22 01:00 105 H 11 L 90/48 98 08/03/22 00:30 109 H 11 L 85/43 93 L 08/03/22 00:20 100 6 L 94 L 08/03/22 00:10 102 H 5 L 85/43 90 L 08/03/22 00:00 97.9 F 98 12 89/53 88 L 08/02/22 23:57 99 19 08/02/22 22:47 108 H 28 H 93/54 95 08/02/22 20:16 98 22 114/73 98 08/02/22 19:07 101 H 24 123/52 98 08/02/22 18:12 97.9 F 118 H 24 76/53 96 Intake and Output 08/02/22 08/03/22 08/03/22 22:59 06:59 14:59 Intake Total 1488.118 650 Output Total 360 280 Balance 1128.118 370 Intake: IV 1400 200 Sodium Chloride 0.9% 1, 1400 200 000 ml @ 200 mls/hr IV . Q5H [facility] Rx#:[id number] Intake, IV Titration 88.118 450 Amount D5-0.45% NaCl with KCl 450 20Meq/l 1,000 ml @ 150 mls/hr IV .Q6H40M [facility] Rx# :[id number] Insulin Regular 100 unit 88.118 In Sodium Chloride 0.9% 100 ml @ 0.1 UNITS/KG/HR 9.163 mls/hr IV .Q11H2M [facility] Rx#:[id number] Output: Urine 360 280 Other: Voiding Method Indwelling Catheter Weight 90.718 kg 91.3 kg GENERAL EXAM: Alert, 61-year-old male patient, on 4 L nasal cannula, comfortable in no apparent distress. HEAD: Normocephalic. EYES: Normal reaction of pupils, equal size. NOSE: Clear with pink turbinates. THROAT: No erythema or exudates. NECK: No masses, no JVD. CHEST: No chest wall deformity. LUNGS: Equal air entry with scattered rhonchi bilaterally. CVS: S1 and S2 normal with no audible murmur, regular rhythm. ABDOMEN: No hepatosplenomegaly, normal bowel sounds, no guarding or rigidity. SPINE: No scoliosis or deformity SKIN: No rashes CENTRAL NERVOUS SYSTEM: No focal deficits, tone is normal in all 4 extremities. EXTREMITIES: There is no peripheral edema. No clubbing, no cyanosis. Peripheral pulses are intact. Results - Laboratory Findings CBC and BMP: 08/03/22 07:50 08/03/22 07:50 PT/INR, D-dimer PT 10.6 sec (9.0-12.0) 08/02/22 18:33 INR 1.0 (<1.2) 08/02/22 18:33 Abnormal lab findings: Abnormal Labs 08/02/22 08/02/22 08/02/22 18:31 18:33 18:33 WBC 23.4 H Hct 54.6 H MCV 105.8 H MCHC 28.4 L Neutrophils # 21.2 H Lymphocytes # 0.8 L Monocytes # APTT 19.7 L VBG HCO3 Sodium Potassium Chloride Carbon Dioxide BUN Creatinine Glucose POC Glucose (mg/dL) >600 H Plasma Lactic Acid Rom Phosphorus Magnesium Alkaline Phosphatase Total Protein Urine Glucose (UA) Urine Ketones 08/02/22 08/02/22 08/02/22 18:33 18:33 18:33 WBC Hct MCV MCHC Neutrophils # Lymphocytes # Monocytes # APTT VBG HCO3 Sodium 134 L Potassium 6.0 H Chloride 92 L Carbon Dioxide 16 L BUN 68 H Creatinine 3.45 H Glucose 1357 H* POC Glucose (mg/dL) Plasma Lactic Acid Rom 3.8 H* Phosphorus Magnesium 3.3 H Alkaline Phosphatase 153 H Total Protein 6.2 L Urine Glucose (UA) 4+ H Urine Ketones 1+ H 08/02/22 08/02/22 08/02/22 18:33 21:29 22:40 WBC Hct MCV MCHC Neutrophils # Lymphocytes # Monocytes # APTT VBG HCO3 19 L Sodium Potassium Chloride Carbon Dioxide BUN Creatinine Glucose POC Glucose (mg/dL) >600 H Plasma Lactic Acid Rom Phosphorus 4.7 H Magnesium Alkaline Phosphatase Total Protein Urine Glucose (UA) Urine Ketones 08/02/22 08/02/22 08/02/22 22:40 22:58 23:56 WBC Hct MCV MCHC Neutrophils # Lymphocytes # Monocytes # APTT VBG HCO3 Sodium Potassium 5.2 H Chloride Carbon Dioxide 19 L BUN 72 H Creatinine 3.20 H Glucose 1050 H* POC Glucose (mg/dL) >600 H >600 H Plasma Lactic Acid Rom Phosphorus Magnesium Alkaline Phosphatase Total Protein Urine Glucose (UA) Urine Ketones 08/03/22 08/03/22 08/03/22 00:17 02:00 03:24 WBC Hct MCV MCHC Neutrophils # Lymphocytes # Monocytes # APTT VBG HCO3 Sodium Potassium Chloride Carbon Dioxide BUN 76 H Creatinine 2.98 H Glucose 908 H* 717 H* 631 H* POC Glucose (mg/dL) Plasma Lactic Acid Rom Phosphorus Magnesium Alkaline Phosphatase Total Protein Urine Glucose (UA) Urine Ketones 08/03/22 08/03/22 08/03/22 04:59 06:04 06:59 WBC Hct MCV MCHC Neutrophils # Lymphocytes # Monocytes # APTT VBG HCO3 Sodium Potassium Chloride Carbon Dioxide BUN Creatinine Glucose POC Glucose (mg/dL) 424 H 308 H 243 H Plasma Lactic Acid Rom Phosphorus Magnesium Alkaline Phosphatase Total Protein Urine Glucose (UA) Urine Ketones 08/03/22 08/03/22 08/03/22 07:50 07:50 08:04 WBC 23.7 H Hct MCV MCHC Neutrophils # 20.3 H Lymphocytes # Monocytes # 1.2 H APTT VBG HCO3 Sodium 152 H Potassium Chloride 119 H Carbon Dioxide BUN 69 H Creatinine 2.26 H Glucose 226 H POC Glucose (mg/dL) 187 H Plasma Lactic Acid Rom Phosphorus Magnesium 3.3 H Alkaline Phosphatase Total Protein Urine Glucose (UA) Urine Ketones 08/03/22 09:28 WBC Hct MCV MCHC Neutrophils # Lymphocytes # Monocytes # APTT VBG HCO3 Sodium Potassium Chloride Carbon Dioxide BUN Creatinine Glucose POC Glucose (mg/dL) 175 H Plasma Lactic Acid Rom Phosphorus Magnesium Alkaline Phosphatase Total Protein Urine Glucose (UA) Urine Ketones - Diagnostic Findings Chest x-ray: image reviewed Assessment and Plan Assessment: Acute new onset diabetes mellitus with diabetic ketoacidosis versus hyperglycemic hyperosmolar syndrome with acute renal failure Anion gap metabolic acidosis secondary to above Leukocytosis secondary to above Acute renal failure Hyperkalemia secondary to above History of previous CVAs Hypertension Chronic and ongoing tobacco dependence Benign prostatic hyperplasia Plan: The patient was seen and evaluated Chest x-ray, labs and medications reviewed Continuing the DKA protocol for now Continue to monitor blood glucose and electrolytes closely Titrate the insulin drip Titrate down the FiO2 as tolerated Nephrology consult Educated regarding the importance of complete smoking cessation NicoDerm patch will be offered We will continue to follow and make further recommendations based on his clinical status I have personally seen and examined the patient, performed the documentation and the assessment and plan as written. Number of minutes spent on the visit: 20.
[2022-08-03 10:37] LABS: Glucose,Whole Blood 134 mg/dL (70-110)
[2022-08-03] MEDS: NICOTINE 14MG/24HR PATCH TRANSDERM SCH (10:47)
[2022-08-03 10:59] LABS: Glucose,Whole Blood 181 mg/dL (70-110)
[2022-08-03 11:54] LABS: Glucose,Whole Blood 130 mg/dL (70-110)
[2022-08-03] MEDS ORDERED: FLUTICASONE 50MCG/SPRAY NASAL 16GM EA NOSTRIL PRN (12:24)
[2022-08-03 12:55] LABS: Glucose,Whole Blood 142 mg/dL (70-110)
[2022-08-03 13:08] LABS: Potassium 4.4 mmol/L (3.5-5.1)
[2022-08-03 13:08] LABS: Cocaine Screen,Urine Not Detected (NotDetected); Phencyclidine Screen,Urine Not Detected (NotDetected); Urn Cannabinoid Scrn Not Detected (NotDetected)
[2022-08-03 13:09] LABS: Amphetamine Screen,Urine Not Detected (NotDetected); Barbiturate Screen,Urine Not Detected (NotDetected); Benzodiazepines Screen,Urine Not Detected (NotDetected); Methadone Screen, Urine Not Detected (NotDetected); Opiate Screen,Urine Not Detected (NotDetected); Oxycodone Screen, Urine Not Detected (NotDetected); Tricyclic Antidepressant,Urine Not Detected (NotDetected)
--- NOTE | 2022-08-03 13:33 | US ---
EXAMINATION TYPE: US kidneys/renal and bladder DATE OF EXAM: 08/03/2022 COMPARISON: NONE CLINICAL INDICATION: Male, 61 years old with history of ileana; EXAM MEASUREMENTS: Right Kidney: 10.5 x 4.7 x 4.9 cm Left Kidney: 11.1 x 5.9 x 5.9 cm Right Kidney: No hydronephrosis, nephrolithiasis or masses seen Left Kidney: No hydronephrosis, nephrolithiasis or masses seen Bladder: not seen, patient catherized Renal cortex thickness is maintained. There is good cortical medullary differentiation. IMPRESSION: No acute process.
[2022-08-03 13:56] LABS: Glucose,Whole Blood 191 mg/dL (70-110)
[2022-08-03 14:46] LABS: Glucose,Whole Blood 238 mg/dL (70-110)
[2022-08-03] MEDS ORDERED: DEXTROSE 50% SYRINGE 50 ML IVP PRN ×2 (14:52)
--- NOTE | 2022-08-03 14:53 | CT ---
EXAMINATION TYPE: CT brain wo con DATE OF EXAM: 08/03/2022 COMPARISON: None HISTORY: AMS CT DLP: 1099.4 mGycm Automated exposure control for dose reduction was used. FINDINGS: There is an area of remote infarction adjacent to the body of the left lateral ventricle. Reduced whi te matter attenuation is also seen. There is no sulcal effacement. There is no midline shift or acute hemorrhage. Likely artifact contributing to increased attenuation in the midportion of the basilar a rtery which limits its assessment. Correlate clinically for symptoms. No midline shift. Calvarium is intact. Craniocervical junction maintained. IMPRESSION: 1 SUSPECT REMOTE ISCHEMIA INVOLVING THE WHITE MATTER WITHIN THE LEFT PARIETAL LOBE. NO ACUTE HEMORRHA GE OR MIDLINE SHIFT. 2. INCREASED ATTENUATION TO A SEGMENT OF THE BASILAR ARTERY IS LIKELY ARTIFACTUAL RATHER THAN REPRESE NTING ACUTE THROMBOSIS. CORRELATE CLINICALLY AND IF WARRANTED WITH CTA A Red level critical message alert has been initiated for Lesvia Mendoza MD via the [employer] System on 08/03/2022 2:50 PM. This message alert has been sent to Lesvia Mendoza MD via the preferences provided by the clinician for the receipt of Radiology Critical Findings. Message ID [id number].
[2022-08-03] MEDS: HEPARIN SODIUM,PORCINE/PF 5,000 UNIT/0.5 ML SYRINGE SQ SCH ×2 (15:17→23:45)
[2022-08-03] MEDS: LORATADINE 10 MG TAB PO SCH (15:17)
[2022-08-03] MEDS ORDERED: INSULIN DETEMIR (LEVEMIR) 100 UNIT/ML SYR SQ SCH (15:30)
--- NOTE | 2022-08-03 15:53 | P.HPIM ---
History of Present Illness H&P Date: 08/03/22 This is a 61-year-old male with medical history significant for stroke about 2010 per family he has right sided weakness and slurred speech from the prior stroke, hypertension, enlarged prostate. Patient presented to the on 08/01 with complaints of cough sinus congestion. He was sent home with azithromycin. Labs were not taken. Patient presents back to the emergency room with complaints of weakness and confusion. Most of the medical history is taken from patients son Isa over the phone. Family was concerned that patients speech pattern was worse than usual and his mentation was worsening. He was brought back to the hospital for further evaluation. Patient does live by himself, he is a current smoker, family denies history of alcohol or illicit substance use. Initial work up reveals negative chest xray unchanged. Patient found to have a blood glucose of 1357, lactic acid level of 3.8, leukocytosis of 23.4. There is acute kidney injury with creatinine of 3.45. Alk phos is elevated at 153. Patient is acetone positive and urinalysis is positive for ketones. Covid/influenza/RSV are all negative. Patient was started on insulin gtt per the DKA protocol and given 2 Liter fluid bolus. He is admitted to the intensive care unit. Nephrology and neurology consultation is requested. Travel Agency Manager is following. REVIEW OF SYSTEMS: CONSTITUTIONAL: No fever, no malaise, no fatigue. HEENT: No recent visual problems or hearing problems. Denied any sore throat. CARDIOVASCULAR: No chest pain, orthopnea, PND, no palpitations, no syncope. PULMONARY: No shortness of breath, no hemoptysis. Reports sinus headache and nasal congestion GASTROINTESTINAL: No diarrhea, no nausea, no vomiting, no abdominal pain. NEUROLOGICAL: No headaches, reports right sided weakness as chronic HEMATOLOGICAL: Denies any bleeding or petechiae. GENITOURINARY: Denies any burning micturition, frequency, or urgency. MUSCULOSKELETAL/RHEUMATOLOGICAL: Denies any joint pain, swelling, or any muscle pain. ENDOCRINE: Denies any polyuria or polydipsia. The rest of the 14-point review of systems is negative. PHYSICAL EXAMINATION: GENERAL: The patient is alert and oriented x2-3 confused at times, not in any acute distress. Well developed, well nourished. HEENT: Pupils are round and equally reacting to light. EOMI. No scleral icterus. No conjunctival pallor. Normocephalic, atraumatic. No pharyngeal erythema. No thyromegaly. Tongue has thick white counting and appears swollen. Patient has slurred speech. CARDIOVASCULAR: S1 and S2 present. No murmurs, rubs, or gallops. PULMONARY: Scattered ronchi. ABDOMEN: Soft, nontender, nondistended, normoactive bowel sounds. No palpable organomegaly. MUSCULOSKELETAL: No joint swelling or deformity. EXTREMITIES: No cyanosis, clubbing, or pedal edema. NEUROLOGICAL: Right sided weakness, slurred speech, confusion, fatigued. SKIN: No rashes. Assessment Altered mental status from acute metabolic encephalopathy from the hyperglycemia, patient has worsening slurred speech rule out acute stroke Hyperosmolar hyperglycemia and new onset diabetes mellitus blood glucose over 1300 on admission Anion gap metabolic acidosis Lactic acidosis and leukocytosis from dehydration Acute kidney injury Hyperkalemia from the MADALYN Oral thrush Acute sinusitis History of hypertension currently normotensive holding ROBBIE inhibitor secondary to the hyperkalema and MADALYN History of stroke with right sided weakness and slurred speech per family Chronic and ongoing nicotine use Benign prostatic hyperplasia Obesity GI prophylaxis DVT prophylaxis Full Code Plan Brain CT and neurology consultation Continue intensive care monitoring Nephrology consultation for the MADALYN Insulin gtt per protocol, blood glucose has improved and patient will be transitioned to levemir and novolog. Hold home blood pressure medications for now. Check a procalcitonin level Supportive care for the sinus congestion patient is offered claritin and flonase. Speech therapy, PT/OT are consulted The impression and plan of care has been dictated by Beverley Freire, Nurse Practitioner as directed. Dr. Moni MD I have performed a history and physical examination and medical decision making of this patient, discussed the same with the dictator, and agree with the dictators assessment and plan as written, documented as a scribe. Based on total visit time, I have performed more than 50% of this visit. Past Medical History Past Medical History: CVA/TIA, Hypertension History of Any Multi-Drug Resistant Organisms: MRSA, None Reported Date of last positivie culture/infection: 01/30/2013 MDRO Source:: left leg and back Past Surgical History: Tonsillectomy Past Anesthesia/Blood Transfusion Reactions: No Reported Reaction Smoking Status: Current every day smoker - Past Family History Father Family Medical History: Cancer Mother Family Medical History: Cancer Sister(s) Family Medical History: Cancer Medications and Allergies Home Medications Medication Instructions Recorded Confirmed Type Finasteride [Proscar] 5 mg PO DAILY 08/01/22 08/02/22 History Ibuprofen [Motrin] 800 mg PO BID PRN 08/01/22 08/02/22 History Latanoprost [Latanoprost 0.005%] 1 drop BOTH EYES HS 08/01/22 08/02/22 History Simvastatin [Zocor] 20 mg PO DAILY 08/01/22 08/02/22 History Tamsulosin HCl [Flomax] 0.4 mg PO DAILY 08/01/22 08/02/22 History amLODIPine [Norvasc] 10 mg PO DAILY 08/01/22 08/02/22 History lisinopriL [Zestril] 20 mg PO DAILY 08/01/22 08/02/22 History Azithromycin [Zithromax Z Pack] See Taper PO DAILY 08/02/22 08/02/22 History Allergies Allergy/AdvReac Type Severity Reaction Status Date / Time Penicillins Allergy Severe Burgos on Verified 08/02/22 21:10 skin Physical Exam Vitals: Vital Signs Temp Pulse Resp BP Pulse Ox 08/03/22 07:00 90 21 101/62 96 08/03/22 06:30 90 19 97 08/03/22 06:00 92 15 88/52 96 08/03/22 05:30 89 21 97 08/03/22 05:00 92 17 96/64 94 L 08/03/22 04:30 89 19 79/49 97 08/03/22 04:00 98 F 92 15 93/56 94 L 08/03/22 03:30 92 16 94 L 08/03/22 03:05 22 08/03/22 03:00 92 18 94/57 95 08/03/22 02:30 94 21 94 L 08/03/22 02:00 99 23 85/51 92 L 08/03/22 01:30 106 H 19 90 L 08/03/22 01:00 105 H 11 L 90/48 98 08/03/22 00:30 109 H 11 L 85/43 93 L 08/03/22 00:20 100 6 L 94 L 08/03/22 00:10 102 H 5 L 85/43 90 L 08/03/22 00:00 97.9 F 98 12 89/53 88 L 08/02/22 23:57 99 19 08/02/22 22:47 108 H 28 H 93/54 95 08/02/22 20:16 98 22 114/73 98 08/02/22 19:07 101 H 24 123/52 98 08/02/22 18:12 97.9 F 118 H 24 76/53 96 Intake and Output 08/02/22 08/03/22 08/03/22 22:59 06:59 14:59 Intake Total 1488.118 200 Output Total 360 35 Balance 1128.118 165 Intake: IV 1400 200 Sodium Chloride 0.9% 1, 1400 200 000 ml @ 200 mls/hr IV . Q5H [facility] Rx#:[id number] Intake, IV Titration 88.118 Amount Insulin Regular 100 unit 88.118 In Sodium Chloride 0.9% 100 ml @ 0.1 UNITS/KG/HR 9.163 mls/hr IV .Q11H2M [facility] Rx#:[id number] Output: Urine 360 35 Other: Voiding Method Indwelling Catheter Weight 90.718 kg 91.3 kg Results CBC & Chem 7: 08/03/22 07:50 08/03/22 12:20 Labs: Abnormal Lab Results - Last 24 Hours (Table) 08/02/22 08/02/22 08/02/22 Range/Units 18:31 18:33 18:33 WBC 23.4 H (3.8-10.6) k/uL Hct 54.6 H (39.0-53.0) % MCV 105.8 H (80.0-100.0) fL MCHC 28.4 L (31.0-37.0) g/dL Neutrophils # 21.2 H (1.3-7.7) k/uL Lymphocytes # 0.8 L (1.0-4.8) k/uL Monocytes # (0-1.0) k/uL APTT 19.7 L (22.0-30.0) sec VBG HCO3 (24-28) mmol/L Sodium (137-145) mmol/L Potassium (3.5-5.1) mmol/L Chloride (98-107) mmol/L Carbon Dioxide (22-30) mmol/L BUN (9-20) mg/dL Creatinine (0.66-1.25) mg/dL Glucose (74-99) mg/dL POC Glucose (mg/dL) >600 H (70-110) mg/dL Plasma Lactic Acid Rom (0.7-2.0) mmol/L Phosphorus (2.5-4.5) mg/dL Magnesium (1.6-2.3) mg/dL Alkaline Phosphatase (38-126) U/L Total Protein (6.3-8.2) g/dL Urine Glucose (UA) (Negative) Urine Ketones (Negative) 08/02/22 08/02/22 08/02/22 Range/Units 18:33 18:33 18:33 WBC (3.8-10.6) k/uL Hct (39.0-53.0) % MCV (80.0-100.0) fL MCHC (31.0-37.0) g/dL Neutrophils # (1.3-7.7) k/uL Lymphocytes # (1.0-4.8) k/uL Monocytes # (0-1.0) k/uL APTT (22.0-30.0) sec VBG HCO3 (24-28) mmol/L Sodium 134 L (137-145) mmol/L Potassium 6.0 H (3.5-5.1) mmol/L Chloride 92 L (98-107) mmol/L Carbon Dioxide 16 L (22-30) mmol/L BUN 68 H (9-20) mg/dL Creatinine 3.45 H (0.66-1.25) mg/dL Glucose 1357 H* (74-99) mg/dL POC Glucose (mg/dL) (70-110) mg/dL Plasma Lactic Acid Rom 3.8 H* (0.7-2.0) mmol/L Phosphorus (2.5-4.5) mg/dL Magnesium 3.3 H (1.6-2.3) mg/dL Alkaline Phosphatase 153 H (38-126) U/L Total Protein 6.2 L (6.3-8.2) g/dL Urine Glucose (UA) 4+ H (Negative) Urine Ketones 1+ H (Negative) 08/02/22 08/02/22 08/02/22 Range/Units 18:33 21:29 22:40 WBC (3.8-10.6) k/uL Hct (39.0-53.0) % MCV (80.0-100.0) fL MCHC (31.0-37.0) g/dL Neutrophils # (1.3-7.7) k/uL Lymphocytes # (1.0-4.8) k/uL Monocytes # (0-1.0) k/uL APTT (22.0-30.0) sec VBG HCO3 19 L (24-28) mmol/L Sodium (137-145) mmol/L Potassium (3.5-5.1) mmol/L Chloride (98-107) mmol/L Carbon Dioxide (22-30) mmol/L BUN (9-20) mg/dL Creatinine (0.66-1.25) mg/dL Glucose (74-99) mg/dL POC Glucose (mg/dL) >600 H (70-110) mg/dL Plasma Lactic Acid Rom (0.7-2.0) mmol/L Phosphorus 4.7 H (2.5-4.5) mg/dL Magnesium (1.6-2.3) mg/dL Alkaline Phosphatase (38-126) U/L Total Protein (6.3-8.2) g/dL Urine Glucose (UA) (Negative) Urine Ketones (Negative) 08/02/22 08/02/22 08/02/22 Range/Units 22:40 22:58 23:56 WBC (3.8-10.6) k/uL Hct (39.0-53.0) % MCV (80.0-100.0) fL MCHC (31.0-37.0) g/dL Neutrophils # (1.3-7.7) k/uL Lymphocytes # (1.0-4.8) k/uL Monocytes # (0-1.0) k/uL APTT (22.0-30.0) sec VBG HCO3 (24-28) mmol/L Sodium (137-145) mmol/L Potassium 5.2 H (3.5-5.1) mmol/L Chloride (98-107) mmol/L Carbon Dioxide 19 L (22-30) mmol/L BUN 72 H (9-20) mg/dL Creatinine 3.20 H (0.66-1.25) mg/dL Glucose 1050 H* (74-99) mg/dL POC Glucose (mg/dL) >600 H >600 H (70-110) mg/dL Plasma Lactic Acid Rom (0.7-2.0) mmol/L Phosphorus (2.5-4.5) mg/dL Magnesium (1.6-2.3) mg/dL Alkaline Phosphatase (38-126) U/L Total Protein (6.3-8.2) g/dL Urine Glucose (UA) (Negative) Urine Ketones (Negative) 08/03/22 08/03/22 08/03/22 Range/Units 00:17 02:00 03:24 WBC (3.8-10.6) k/uL Hct (39.0-53.0) % MCV (80.0-100.0) fL MCHC (31.0-37.0) g/dL Neutrophils # (1.3-7.7) k/uL Lymphocytes # (1.0-4.8) k/uL Monocytes # (0-1.0) k/uL APTT (22.0-30.0) sec VBG HCO3 (24-28) mmol/L Sodium (137-145) mmol/L Potassium (3.5-5.1) mmol/L Chloride (98-107) mmol/L Carbon Dioxide (22-30) mmol/L BUN 76 H (9-20) mg/dL Creatinine 2.98 H (0.66-1.25) mg/dL Glucose 908 H* 717 H* 631 H* (74-99) mg/dL POC Glucose (mg/dL) (70-110) mg/dL Plasma Lactic Acid Rom (0.7-2.0) mmol/L Phosphorus (2.5-4.5) mg/dL Magnesium (1.6-2.3) mg/dL Alkaline Phosphatase (38-126) U/L Total Protein (6.3-8.2) g/dL Urine Glucose (UA) (Negative) Urine Ketones (Negative) 08/03/22 08/03/22 08/03/22 Range/Units 04:59 06:04 06:59 WBC (3.8-10.6) k/uL Hct (39.0-53.0) % MCV (80.0-100.0) fL MCHC (31.0-37.0) g/dL Neutrophils # (1.3-7.7) k/uL Lymphocytes # (1.0-4.8) k/uL Monocytes # (0-1.0) k/uL APTT (22.0-30.0) sec VBG HCO3 (24-28) mmol/L Sodium (137-145) mmol/L Potassium (3.5-5.1) mmol/L Chloride (98-107) mmol/L Carbon Dioxide (22-30) mmol/L BUN (9-20) mg/dL Creatinine (0.66-1.25) mg/dL Glucose (74-99) mg/dL POC Glucose (mg/dL) 424 H 308 H 243 H (70-110) mg/dL Plasma Lactic Acid Rom (0.7-2.0) mmol/L Phosphorus (2.5-4.5) mg/dL Magnesium (1.6-2.3) mg/dL Alkaline Phosphatase (38-126) U/L Total Protein (6.3-8.2) g/dL Urine Glucose (UA) (Negative) Urine Ketones (Negative) 08/03/22 08/03/22 08/03/22 Range/Units 07:50 07:50 08:04 WBC 23.7 H (3.8-10.6) k/uL Hct (39.0-53.0) % MCV (80.0-100.0) fL MCHC (31.0-37.0) g/dL Neutrophils # 20.3 H (1.3-7.7) k/uL Lymphocytes # (1.0-4.8) k/uL Monocytes # 1.2 H (0-1.0) k/uL APTT (22.0-30.0) sec VBG HCO3 (24-28) mmol/L Sodium 152 H (137-145) mmol/L Potassium (3.5-5.1) mmol/L Chloride 119 H (98-107) mmol/L Carbon Dioxide (22-30) mmol/L BUN 69 H (9-20) mg/dL Creatinine 2.26 H (0.66-1.25) mg/dL Glucose 226 H (74-99) mg/dL POC Glucose (mg/dL) 187 H (70-110) mg/dL Plasma Lactic Acid Rom (0.7-2.0) mmol/L Phosphorus (2.5-4.5) mg/dL Magnesium 3.3 H (1.6-2.3) mg/dL Alkaline Phosphatase (38-126) U/L Total Protein (6.3-8.2) g/dL Urine Glucose (UA) (Negative) Urine Ketones (Negative) Assessment and Plan Time with Patient: Greater than 30
--- NOTE | 2022-08-03 16:19 | US ---
EXAMINATION TYPE: US carotid duplex BILAT DATE OF EXAM: 08/03/2022 COMPARISON: CT brain, MR brain CLINICAL INDICATION: Male, 61 years old with history of stroke; Stroke TECHNIQUE: Carotid duplex ultrasound examination. Indirect Doppler criteria was utilized. 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 Patient could not stay awake and was snoring throughout th e test. Plaque was seen within bilateral bulbs. Elevated velocities within right CCA, right ICA, ri ght ECA, left CCA, left bulb, and left ECA. IMPRESSION: Limited examination due to patient condition. Mild atherosclerotic plaque in the carotid bulbs with less than 50% stenosis of the origins of the bi lateral internal carotid arteries. Criteria for Assigning % of Stenosis / Diameter reduction (Estimation based on the indirect measurements of the internal carotid artery velocities (ICA PSV). 1. Normal (no stenosis)=ICA PSV < 125 cm/s: ratio < 2.0: ICA EDV<40 cm/s. 2. Less than 50% stenosis=ICA PSV < 125 cm/s: ratio < 2.0: ICA EDV<40 cm/s. 3. 50 to 69% stenosis=ICA PSV of 125 to 230 cm/s: ration 2.0 ? 4.0: ICA EDV 40-100 cm/s. 4. Greater than 70% stenosis to near occlusion= ICA PSV > 230 cm/s: ratio > 4.0: ICA EDV > 100 cm/s. 5. Near occlusion= ICA PSV velocities may be low or undetectable: variable ratio and ICA EDV. 6. Total occlusion=unable to detect flow.
[2022-08-03 16:25] LABS: Glucose,Whole Blood 261 mg/dL (70-110)
[2022-08-03] MEDS: INSULIN ASPART (NovoLOG) 100 UNIT/ML VIAL SQ SCH ×3 (16:48→21:05)
[2022-08-03] MEDS: NYSTATIN 100,000 UNIT/ML SUSP 500,000 UNIT/5 ML CUP PO SCH ×2 (16:49→23:45)
[2022-08-03] MEDS ORDERED: ASPIRIN 325 MG TAB PO SCH (17:00)
[2022-08-03] MEDS ORDERED: INSULIN ASPART (NovoLOG) 100 UNIT/ML VIAL SQ SCH (17:30)
--- NOTE | 2022-08-03 19:31 | P.CNNES ---
History of Present Illness Consult date: 08/03/22 Requesting physician: Beverley Freire Reason for Consult: AMS, slurred speech, stroke History of Present Illness: Patient is a 61-year-old right-handed male with history of hypertension, tobacco use, came to the hospital yesterday at 6:11 PM for strokelike symptoms, generalized weakness and slurred speech. Patient's sons were present, who provided with a history. They mentioned that patient's symptoms started last Saturday or Saturday, July 27 or 2022 with hard time talking, like tongue was swollen, thick and his body felt weak, almost like a flu or cold symptoms. By Saturday his symptoms were not getting better. As the days progressed, his weakness got worse, was getting very weak hard time walking and talking. He then started having hallucinations, like getting dressed although was not needed, and was not thinking clearly. Patient's family brought him to the hospital on 08/01/2022. Upper respiratory infection was suspected and patient was discharged with possible tracheobronchitis with a prescription of Z-Pack. However his symptoms got worse therefore patient's family brought hi m to the hospital. Patient denies any focal numbness, focal weakness, double vision, loss of vision, any headache. Vital signs on arrival blood pressure 76/53, which went up to 123/52. Pulse rate 118, temperature 97.9. Blood test shows WBC 23.4, hemoglobin 15.5, with elevated MCV 105.8, platelets 226. PT/PTT normal, sodium 134 potassium 6.0, BUN 68, creatinine 3.45, blood glucose 1357 with fingerstick glucose > 600, lactate 3.8, hepatic panel normal, troponin negative, UA with 4+ glucose and 1+ ketones. Acetone positive, influenza, RSV and dubose virus PCR negative. Urine drug screen negative, most recent sodium 152, potassium 4.4, BUN 60, creatinine 1.94. CT head reveals suspect remote ischemia involving the white matter within the left parietal lobe. No acute hemorrhage or midline shift. Increased attenuation to a segment of the basilar artery is likely artifactual, rather th an representing acute thrombosis. Correlate clinically and if warranted with CTA. EKG shows sinus tachycardia, chest x-ray showed no acute cardiopulmonary process. Abdominal ultrasound negative. Patient has history of hypertension. He has smoked three-quarter pack per day for 30+ years. Still smokes. Denies any alcohol. Patient has history of stroke affecting the right side on 07/03/2010 as per his MRI of the brain films available in the chart. I reviewed MRI of the brain from that time. Patient has some residual weakness on the right side. Patient's home medications include Flomax, simvastatin 20 mg, amlodipine 10 mg, Proscar 5 mg, lisinopril 20 mg, azithromycin. Patient does not take any antiplatelet medication at home. Review of Systems Constitutional: Reports weight loss, Denies chills, Denies fever Eyes: denies blurred vision, denies diplopia, denies pain Ears: deny: decreased hearing, ear discharge, earache Ears, nose, mouth and throat: Reports nasal discharge, Reports sinus pressure, Reports sore throat, Denies headache Cardiovascular: Denies chest pain, Denies shortness of breath Respiratory: Denies cough, Denies excessive sputum Gastrointestinal: Denies abdominal pain, Denies diarrhea, Denies nausea, Denies vomiting Musculoskeletal: Denies low back pain, Denies myalgias, Denies neck pain Integumentary: Denies pruritus, Denies rash Neurological: Denies numbness, Denies weakness Psychiatric: Denies anxiety, Denies depression Endocrine: Reports fatigue, Reports weight change Past Medical History Past Medical History: CVA/TIA, Hypertension History of Any Multi-Drug Resistant Organisms: MRSA, None Reported Date of last positivie culture/infection: 01/30/2013 MDRO Source:: left leg and back Past Surgical History: Tonsillectomy Past Anesthesia/Blood Transfusion Reactions: No Reported Reaction Smoking Status: Current every day smoker - Past Family History Father Family Medical History: Cancer Mother Family Medical History: Cancer Sister(s) Family Medical History: Cancer Medications and Allergies Home Medications Medication Instructions Recorded Confirmed Type Finasteride [Proscar] 5 mg PO DAILY 08/01/22 08/02/22 History Ibuprofen [Motrin] 800 mg PO BID PRN 08/01/22 08/02/22 History Latanoprost [Latanoprost 0.005%] 1 drop BOTH EYES HS 08/01/22 08/02/22 History Simvastatin [Zocor] 20 mg PO DAILY 08/01/22 08/02/22 History Tamsulosin HCl [Flomax] 0.4 mg PO DAILY 08/01/22 08/02/22 History amLODIPine [Norvasc] 10 mg PO DAILY 08/01/22 08/02/22 History lisinopriL [Zestril] 20 mg PO DAILY 08/01/22 08/02/22 History Azithromycin [Zithromax Z Pack] See Taper PO DAILY 08/02/22 08/02/22 History Allergies Allergy/AdvReac Type Severity Reaction Status Date / Time Penicillins Allergy Severe [place] on Verified 08/02/22 21:10 skin Physical Examination - Vital Signs Vital Signs: Vital Signs Temp Pulse Resp BP Pulse Ox 08/03/22 15:00 95 20 132/67 97 08/03/22 14:00 93 20 109/45 95 08/03/22 13:00 89 18 120/33 97 08/03/22 12:00 98.0 F 89 20 120/33 96 08/03/22 11:00 92 20 113/45 96 08/03/22 10:00 90 18 104/63 96 08/03/22 09:00 100 14 103/54 95 08/03/22 08:00 97.6 F 93 12 113/66 98 08/03/22 07:00 90 21 101/62 96 08/03/22 06:30 90 19 97 08/03/22 06:00 92 15 88/52 96 08/03/22 05:30 89 21 97 08/03/22 05:00 92 17 96/64 94 L 08/03/22 04:30 89 19 79/49 97 08/03/22 04:00 98 F 92 15 93/56 94 L 08/03/22 03:30 92 16 94 L 08/03/22 03:05 22 08/03/22 03:00 92 18 94/57 95 08/03/22 02:30 94 21 94 L 08/03/22 02:00 99 23 85/51 92 L 08/03/22 01:30 106 H 19 90 L 08/03/22 01:00 105 H 11 L 90/48 98 08/03/22 00:30 109 H 11 L 85/43 93 L 08/03/22 00:20 100 6 L 94 L 08/03/22 00:10 102 H 5 L 85/43 90 L 08/03/22 00:00 97.9 F 98 12 89/53 88 L 08/02/22 23:57 99 19 08/02/22 22:47 108 H 28 H 93/54 95 08/02/22 20:16 98 22 114/73 98 08/02/22 19:07 101 H 24 123/52 98 08/02/22 18:12 97.9 F 118 H 24 76/53 96 Intake and Output 08/03/22 08/03/22 08/03/22 06:59 14:59 22:59 Intake Total 2213.946 1451.616 75 Output Total 360 480 50 Balance 1128.118 816.616 25 Intake: IV 1400 200 Sodium Chloride 0.9% 1, 1400 200 000 ml @ 200 mls/hr IV . Q5H [facility] Rx#:[id number] Intake, IV Titration 88.118 1096.616 75 Amount D5-0.45% NaCl with KCl 450 20Meq/l 1,000 ml @ 150 mls/hr IV .Q6H40M [facility] Rx# :[id number] Dextrose 5% in Water 1, 600 75 000 ml @ 75 mls/hr IV . [id number] [facility] Rx#:[id number] Insulin Regular 100 unit 88.118 46.616 In Sodium Chloride 0.9% 100 ml @ 0.1 UNITS/KG/HR 9.163 mls/hr IV .Q11H2M [facility] Rx#:[id number] Output: Urine 360 480 50 Other: Voiding Method Indwelling Catheter Indwelling Catheter Weight 91.3 kg 91.3 kg Patient is a middle aged Afro-[place] male, in no acute distress. Patient is very pleasant, making humerus commands. Patient is alert awake oriented to time place and person. He knows it is July 2022 and that he is in [facility] in [place] and name of the current president. Speech appears slurred, partly due to significant thrush on the tongue. May be some degree of dysarthria as well. His language functions are normal. Patient can name all objects presented, and repeats very well. Attention, concentration and fund of knowledge is adequate. On cranial nerve examination, pupils are equal, round and reacting to light, visual mustafa are full on confrontation, with no neglect on double simultaneous stimulation. Extraocular muscles are intact with no nystagmus. Face is symmetric, tongue protrudes to the midline. The top of tongue is full of thrush . Palatal elevation and sensation normal, hearing and shoulder shrug normal, facial sensation normal. On muscle strength testing, there is mild right pronation, but no drift. The strength is normal in arms and legs distally and proximally, except right geometry professor and right hip flexion which are 5-, normal on the left side. Deep tendon reflexes are (right/left) biceps 3/2, brachioradialis 3/2, knee 3/1, ankles 0/0, plantars are downgoing bilaterally. Sensory to touch is equal with no neglect on double simultaneous stimulation. Cerebellar function showed mild ataxia for [id number] testing only on the right, not left. Patient has mild ataxia for [id number] testing only on the right side. Tone and bulk of muscles normal. Gait deferred.. On general examination, there is no carotid bruit or murmur, S1-S2 audible. Chest is clear on consultation. Abdomen is soft nontender. No organomegaly, bowel sounds present. Peripheral pulses are present. No edema. Results - Laboratory Findings CBC and BMP: 08/03/22 07:50 08/03/22 12:20 Abnormal Lab Findings: Abnormal Labs 08/02/22 08/02/22 08/02/22 18:31 18:33 18:33 WBC 23.4 H Hct 54.6 H MCV 105.8 H MCHC 28.4 L Neutrophils # 21.2 H Lymphocytes # 0.8 L Monocytes # APTT 19.7 L VBG HCO3 Sodium Potassium Chloride Carbon Dioxide BUN Creatinine Glucose POC Glucose (mg/dL) >600 H Plasma Lactic Acid Rom Phosphorus Magnesium Alkaline Phosphatase Total Protein Urine Glucose (UA) Urine Ketones 08/02/22 08/02/22 08/02/22 18:33 18:33 18:33 WBC Hct MCV MCHC Neutrophils # Lymphocytes # Monocytes # APTT VBG HCO3 Sodium 134 L Potassium 6.0 H Chloride 92 L Carbon Dioxide 16 L BUN 68 H Creatinine 3.45 H Glucose 1357 H* POC Glucose (mg/dL) Plasma Lactic Acid Rom 3.8 H* Phosphorus Magnesium 3.3 H Alkaline Phosphatase 153 H Total Protein 6.2 L Urine Glucose (UA) 4+ H Urine Ketones 1+ H 08/02/22 08/02/22 08/02/22 18:33 21:29 22:40 WBC Hct MCV MCHC Neutrophils # Lymphocytes # Monocytes # APTT VBG HCO3 19 L Sodium Potassium Chloride Carbon Dioxide BUN Creatinine Glucose POC Glucose (mg/dL) >600 H Plasma Lactic Acid Rom Phosphorus 4.7 H Magnesium Alkaline Phosphatase Total Protein Urine Glucose (UA) Urine Ketones 08/02/22 08/02/22 08/02/22 22:40 22:58 23:56 WBC Hct MCV MCHC Neutrophils # Lymphocytes # Monocytes # APTT VBG HCO3 Sodium Potassium 5.2 H Chloride Carbon Dioxide 19 L BUN 72 H Creatinine 3.20 H Glucose 1050 H* POC Glucose (mg/dL) >600 H >600 H Plasma Lactic Acid Rom Phosphorus Magnesium Alkaline Phosphatase Total Protein Urine Glucose (UA) Urine Ketones 08/03/22 08/03/22 08/03/22 00:17 02:00 03:24 WBC Hct MCV MCHC Neutrophils # Lymphocytes # Monocytes # APTT VBG HCO3 Sodium Potassium Chloride Carbon Dioxide BUN 76 H Creatinine 2.98 H Glucose 908 H* 717 H* 631 H* POC Glucose (mg/dL) Plasma Lactic Acid Rom Phosphorus Magnesium Alkaline Phosphatase Total Protein Urine Glucose (UA) Urine Ketones 08/03/22 08/03/22 08/03/22 04:59 06:04 06:59 WBC Hct MCV MCHC Neutrophils # Lymphocytes # Monocytes # APTT VBG HCO3 Sodium Potassium Chloride Carbon Dioxide BUN Creatinine Glucose POC Glucose (mg/dL) 424 H 308 H 243 H Plasma Lactic Acid Rom Phosphorus Magnesium Alkaline Phosphatase Total Protein Urine Glucose (UA) Urine Ketones 08/03/22 08/03/22 08/03/22 07:50 07:50 08:04 WBC 23.7 H Hct MCV MCHC Neutrophils # 20.3 H Lymphocytes # Monocytes # 1.2 H APTT VBG HCO3 Sodium 152 H Potassium Chloride 119 H Carbon Dioxide BUN 69 H Creatinine 2.26 H Glucose 226 H POC Glucose (mg/dL) 187 H Plasma Lactic Acid Rom Phosphorus Magnesium 3.3 H Alkaline Phosphatase Total Protein Urine Glucose (UA) Urine Ketones 08/03/22 08/03/22 08/03/22 09:28 10:36 10:58 WBC Hct MCV MCHC Neutrophils # Lymphocytes # Monocytes # APTT VBG HCO3 Sodium Potassium Chloride Carbon Dioxide BUN Creatinine Glucose POC Glucose (mg/dL) 175 H 134 H 181 H Plasma Lactic Acid Rom Phosphorus Magnesium Alkaline Phosphatase Total Protein Urine Glucose (UA) Urine Ketones 08/03/22 08/03/22 08/03/22 11:53 12:20 12:53 WBC Hct MCV MCHC Neutrophils # Lymphocytes # Monocytes # APTT VBG HCO3 Sodium 152 H Potassium Chloride 118 H Carbon Dioxide BUN 60 H Creatinine 1.94 H Glucose 147 H POC Glucose (mg/dL) 130 H 142 H Plasma Lactic Acid Rom Phosphorus Magnesium Alkaline Phosphatase Total Protein Urine Glucose (UA) Urine Ketones 08/03/22 08/03/22 13:55 14:45 WBC Hct MCV MCHC Neutrophils # Lymphocytes # Monocytes # APTT VBG HCO3 Sodium Potassium Chloride Carbon Dioxide BUN Creatinine Glucose POC Glucose (mg/dL) 191 H 238 H Plasma Lactic Acid Rom Phosphorus Magnesium Alkaline Phosphatase Total Protein Urine Glucose (UA) Urine Ketones Assessment and Plan Assessment: * Generalized weakness, slurring, probable multifactorial. Patient has severe DKA which likely is the cause of generalized weakness. Slurring could be related to severe thrush noted. Patient does have mild right-sided vocal symptoms, uncertain if new or related to previous deficits from the stroke from 07/03/2010. * New onset diabetes, presenting with DKA * Probable thrush. * History of CVA 07/03/2010 with residual, mild right-sided weakness * Tobacco use * Hypertension * Renal insufficiency, moderate. Plan: * MRI of the brain without contrast, evaluate for acute CVA * MRA brain rule out basilar thrombus. Clinically there is no evidence of basilar thrombosis. Patient's mentation is normal. * 2-D echo with bubble study to rule out PFO * Carotid Doppler, revealed mild atherosclerotic plaque in the carotid bulbs with less than 50% stenosis of the origin of bilateral ICA. Antegrade flow in both vertebral arteries. * Fasting a.m. lipid panel * Hemoglobin A1c * Permissive hypertension for next 24-48 hours, unless needed to control for cardiac or renal reasons. * Patient was not taking any antiplatelet medication. Patient was given aspirin 325 mg loading dose. We will maintain on aspirin 81 mg daily (lower dose due to renal insufficiency). May consider DAP if acute stroke confirmed. * Close neuro checks * Telemetry monitoring rule out any arrhythmia * Recommend complete tobacco cessation. * Agree with nystatin for thrush, may need fluconazole. * DVT prophylaxis: Heparin 5000 units subcu every 8 hours * Dr. Arenas will resume neurology service in the morning. Discussed with nursing staff in detail. Thank you for the consult. Time with Patient: Greater than 30
[2022-08-03 20:35] LABS: Glucose,Whole Blood 265 mg/dL (70-110)
[2022-08-03 23:46] LABS: Calcium 8.7 mg/dL (8.4-10.2); Magnesium 2.9 mg/dL (1.6-2.3); Potassium 4.4 mmol/L (3.5-5.1)
[2022-08-04] MEDS: LATANOPROST 0.005% OPHTH DROPS 2.5 ML BTL BOTH EYES SCH ×2 (00:15→20:21)
[2022-08-04] MEDS: DEXTROSE 5% IN WATER 1,000 ML IV SCH (06:17)
[2022-08-04 07:13] LABS: Glucose,Whole Blood 309 mg/dL (70-110)
[2022-08-04] MEDS: HEPARIN SODIUM,PORCINE/PF 5,000 UNIT/0.5 ML SYRINGE SQ SCH ×2 (07:37→20:15)
[2022-08-04] MEDS: INSULIN ASPART (NovoLOG) 100 UNIT/ML VIAL SQ SCH ×7 (07:37→20:21)
[2022-08-04] MEDS: INSULIN DETEMIR (LEVEMIR) 100 UNIT/ML SYR SQ SCH ×2 (07:37→20:21)
[2022-08-04] MEDS: NYSTATIN 100,000 UNIT/ML SUSP 500,000 UNIT/5 ML CUP PO SCH ×4 (07:37→20:21)
[2022-08-04] MEDS: PANTOPRAZOLE 40 MG/10 ML VIAL IVP SCH (07:37)
[2022-08-04] MEDS: ASPIRIN 81 MG PO SCH (07:41)
[2022-08-04] MEDS: LORATADINE 10 MG TAB PO SCH (07:41)
[2022-08-04] MEDS: ATORVASTATIN 10 MG TAB PO SCH (07:41)
[2022-08-04] MEDS: TAMSULOSIN 0.4 MG CAP.ER.24H PO SCH (07:41)
[2022-08-04] MEDS: FINASTERIDE 5 MG TAB PO SCH (07:41)
[2022-08-04 07:45] LABS: Basophils # (A) 0.1 k/uL (0-0.2); Basophils % (A) 0 %; Eosinophils # (A) 0.3 k/uL (0-0.7); Eosinophils % (A) 1 %; HGB 13.6 gm/dL (13.0-17.5); Hypochromasia Slight; Lymphocytes # (A) 2.8 k/uL (1.0-4.8); Lymphocytes % (A) 13 %; MCH 29.9 pg (25.0-35.0); MCHC 30.9 g/dL (31.0-37.0); MCV 96.8 fL (80.0-100.0); Mean Platelet Volume 9.5; Monocytes # (A) 1.2 k/uL (0-1.0); Monocytes % (A) 5 %; Neutrophils # (A) 17.6 k/uL (1.3-7.7); Neutrophils % (A) 79 %; Platelet Count 155 k/uL (150-450); RBC 4.54 m/uL (4.30-5.90); RDW 13.1 % (11.5-15.5); WBC 22.2 k/uL (3.8-10.6)
[2022-08-04 08:01] LABS: African American GFR (CKD) 76 (>60 ml/min/1.73 sqM); Anion Gap 6 mmol/L; Blood Urea Nitrogen 30 mg/dL (9-20); Calcium 8.7 mg/dL (8.4-10.2); Carbon Dioxide 26 mmol/L (22-30); Chloride 112 mmol/L (98-107); Glucose 347 mg/dL (74-99); Non-African American GFR(CKD) 66 (>60 ml/min/1.73 sqM); Potassium 4.6 mmol/L (3.5-5.1); Sodium 144 mmol/L (137-145)
--- NOTE | 2022-08-04 09:22 | P.PN ---
Subjective Progress Note Date: 08/04/22 Principal diagnosis: Diabetic ketoacidosis. 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 He also has chronic and ongoing tobacco dependence of greater than 40 years. He had recently been having issues with upper respiratory tract symptoms including cough congestion. He developed weakness and confusion and was brought into the emergency room yesterday. Influenza screen negative. RSV screen negative. COVID-19 screen negative. He was found to have new onset diabetes mellitus with diabetic ketoacidosis with anion gap metabolic acidosis. His glucose was 1357. Initial labs revealed a white count of 23.4. Hemoglobin 15.5. Sodium 134. Potassium 6.0. Bicarb 16. Anion gap 26. BUN 68. Creatinine 3.45. Acetone positive. Chest x-ray revealed no acute pulmonary process. He was initiated on the DKA protocol and admitted to the intensive care unit where he is seen today in consultation. He is currently resting comfortably in bed. Awake and alert in no acute distress. His speech is somewhat garbled. Unsure of his baseline based on his previous CVAs. He is maintaining O2 saturations in the 90s on 4 L/m per nasal cannula. He does have symptoms a few scattered rhonchi. He is currently on D5.45 with 20 of KCl at 50 MLS per hour. He is on an insulin drip at 9 units per hour. Progress note dated 08/04/2022. 61-year-old black male who was seen yesterday in consultation. He was admitted to the hospital with a diagnosis of diabetic ketoacidosis, hyperosmolar hyperglycemic state, and renal failure, with metabolic acidosis his mental statu s was poor yesterday. Today, he is doing much better. He is much more awake and alert. He is getting D5W at 75 mL an hour, and 3 L of oxygen. His CAT scan of the brain showed remote ischemia. Currently labs include a white count 22.2, hemoglobin 13.6, hematocrit 44, and platelet count 155,000. Only 144, potassium 4.6, chlorides 112, CO2 26, anion gap 6, BUN 30, and creatinine 1.19. Objective - Vital Signs Vital signs: Vital Signs Temp 98.7 F 08/04/22 03:19 Pulse 103 H 08/04/22 03:19 Resp 16 08/04/22 03:19 BP 124/72 08/04/22 03:19 Pulse Ox 96 08/04/22 08:45 FiO2 Intake & Output 08/03/22 08/04/22 08/04/22 18:59 06:59 18:59 Intake Total 1596.616 300 Output Total 770 480 Balance 826.616 -180 Weight 91.3 kg Intake: IV 200 Sodium Chloride 0.9% 1, 200 000 ml @ 200 mls/hr IV . Q5H [facility] Rx#:[id number] Intake, IV Titration 1396.616 300 Amount D5-0.45% NaCl with KCl 450 20Meq/l 1,000 ml @ 150 mls/hr IV .Q6H40M [facility] Rx# :[id number] Dextrose 5% in Water 1, 900 300 000 ml @ 75 mls/hr IV . [id number] [facility] Rx#:[id number] Insulin Regular 100 unit 46.616 In Sodium Chloride 0.9% 100 ml @ 0.1 UNITS/KG/HR 9.163 mls/hr IV .Q11H2M [facility] Rx#:[id number] Output: Urine 770 480 Other: Voiding Method Indwelling Catheter Indwelling Catheter - Exam No acute distress, oriented 3. Much more awake and alert. Currently on 3 L of oxygen. HEENT examination is grossly unremarkable. Neck supple. Full range of motion. No adenopathy thyromegaly or neck vein distention. Cardiovascular examination reveals regular rhythm rate. S1-S2 normal. No S3 or S4. No discernible murmur noted. Heart rate 100 bpm. Lungs reveal clear breath sounds. Breath sounds are equal bilaterally. No adventitious lung sounds including wheezes rhonchi or crackles. Saturations are 100%. Abdomen soft bowel sounds are heard. No masses or tenderness. Extremities are intact. No cyanosis clubbing or edema. Skin is without rash or lesion. Neurologic examination is brief but nonfocal. - Labs CBC & Chem 7: 08/04/22 07:17 08/04/22 07:16 Labs: Abnormal Lab Results - Last 24 Hours (Table) 08/03/22 08/03/22 08/03/22 Range/Units 09:28 10:36 10:58 WBC (3.8-10.6) k/uL MCHC (31.0-37.0) g/dL Neutrophils # (1.3-7.7) k/uL Monocytes # (0-1.0) k/uL Sodium (137-145) mmol/L Chloride (98-107) mmol/L BUN (9-20) mg/dL Creatinine (0.66-1.25) mg/dL Glucose (74-99) mg/dL POC Glucose (mg/dL) 175 H 134 H 181 H (70-110) mg/dL Hemoglobin A1c (0.0-6.0) % Magnesium (1.6-2.3) mg/dL Procalcitonin (0.02-0.09) ng/mL 08/03/22 08/03/22 08/03/22 Range/Units 11:53 12:20 12:20 WBC (3.8-10.6) k/uL MCHC (31.0-37.0) g/dL Neutrophils # (1.3-7.7) k/uL Monocytes # (0-1.0) k/uL Sodium 152 H (137-145) mmol/L Chloride 118 H (98-107) mmol/L BUN 60 H (9-20) mg/dL Creatinine 1.94 H (0.66-1.25) mg/dL Glucose 147 H (74-99) mg/dL POC Glucose (mg/dL) 130 H (70-110) mg/dL Hemoglobin A1c (0.0-6.0) % Magnesium (1.6-2.3) mg/dL Procalcitonin 0.23 H (0.02-0.09) ng/mL 08/03/22 08/03/22 08/03/22 Range/Units 12:53 13:55 14:45 WBC (3.8-10.6) k/uL MCHC (31.0-37.0) g/dL Neutrophils # (1.3-7.7) k/uL Monocytes # (0-1.0) k/uL Sodium (137-145) mmol/L Chloride (98-107) mmol/L BUN (9-20) mg/dL Creatinine (0.66-1.25) mg/dL Glucose (74-99) mg/dL POC Glucose (mg/dL) 142 H 191 H 238 H (70-110) mg/dL Hemoglobin A1c (0.0-6.0) % Magnesium (1.6-2.3) mg/dL Procalcitonin (0.02-0.09) ng/mL 08/03/22 08/03/22 08/03/22 Range/Units 16:23 18:20 20:34 WBC (3.8-10.6) k/uL MCHC (31.0-37.0) g/dL Neutrophils # (1.3-7.7) k/uL Monocytes # (0-1.0) k/uL Sodium 147 H (137-145) mmol/L Chloride (98-107) mmol/L BUN (9-20) mg/dL Creatinine (0.66-1.25) mg/dL Glucose (74-99) mg/dL POC Glucose (mg/dL) 261 H 265 H (70-110) mg/dL Hemoglobin A1c (0.0-6.0) % Magnesium (1.6-2.3) mg/dL Procalcitonin (0.02-0.09) ng/mL 08/03/22 08/03/22 08/04/22 Range/Units 23:15 23:15 07:11 WBC (3.8-10.6) k/uL MCHC (31.0-37.0) g/dL Neutrophils # (1.3-7.7) k/uL Monocytes # (0-1.0) k/uL Sodium 146 H (137-145) mmol/L Chloride 114 H (98-107) mmol/L BUN 40 H (9-20) mg/dL Creatinine (0.66-1.25) mg/dL Glucose 281 H (74-99) mg/dL POC Glucose (mg/dL) 309 H (70-110) mg/dL Hemoglobin A1c 12.0 H (0.0-6.0) % Magnesium 2.9 H (1.6-2.3) mg/dL Procalcitonin (0.02-0.09) ng/mL 08/04/22 08/04/22 Range/Units 07:16 07:17 WBC 22.2 H (3.8-10.6) k/uL MCHC 30.9 L (31.0-37.0) g/dL Neutrophils # 17.6 H (1.3-7.7) k/uL Monocytes # 1.2 H (0-1.0) k/uL Sodium (137-145) mmol/L Chloride 112 H (98-107) mmol/L BUN 30 H (9-20) mg/dL Creatinine (0.66-1.25) mg/dL Glucose 347 H (74-99) mg/dL POC Glucose (mg/dL) (70-110) mg/dL Hemoglobin A1c (0.0-6.0) % Magnesium (1.6-2.3) mg/dL Procalcitonin (0.02-0.09) ng/mL Assessment and Plan Assessment: Acute new onset diabetes mellitus with diabetic ketoacidosis versus hyperglycemic hyperosmolar syndrome with acute renal failure. Anion gap metabolic acidosis secondary to above, resolved. Leukocytosis. Acute renal failure. Hyperkalemia. History of previous CVA's. Hypertension. Chronic and ongoing tobacco dependence. Benign prostatic hyperplasia. Plan: Plan dated 08/04/2022. The patient is seen today in room 350. Yesterday, he was in the intensive care unit. The patient's anion gap is been closed. His bicarbonate concentration is in the near normal range. His renal failure is improved. The computed tomography scan of the brain suggested more remote ischemic events. He does have a history of previous CVAs in the past. Overall, the patient's doing much better. Moving forward, we'll see the patient only as needed. The patient likely does not need oxygen therapy. Additional recommendations and suggestions are forthcoming. Time with Patient: Less than 30
--- NOTE | 2022-08-04 09:52 | P.PN ---
Subjective Progress Note Date: 08/04/22 The patient is a 61-year-old -[place] male who is being seen in neurologic follow-up on August 04, 2022, via teleneurology. The chart has been reviewed. The patient reportedly was admitted with diabetic ketoacidosis and renal failure. Neurology was asked to see the patient because of mental status changes, weakness and concern for stroke. The patient has a history of cerebral ischemia with residual right-sided weakness. This morning, the patient is seated in the bedside chair. He reports that he is feeling much better. He says that he ate breakfast. He corroborates the symptoms that are reported in the history and physical. He says that they have resolved. Per neurology consultation: Patient is a 61-year-old right-handed male with history of hypertension, tobacco use, came to the hospital yesterday at 6:11 PM for strokelike symptoms, generalized weakness and slurred speech. Patient's sons were present, who provided with a history. They mentioned that patient's symptoms started last Saturday or Saturday, July 27 or 2022 with hard time talking, like tongue was swollen, thick and his body felt weak, almost like a flu or cold symptoms. By Saturday his symptoms were not getting better. As the days progressed, his weakness got worse, was getting very weak hard time walking and talking. He then started having hallucinations, like getting dressed although was not needed, and was not thinking clearly. Patient's family brought him to the hospital on 08/01/2022. Upper respiratory infection was suspected and patient was discharged with possible tracheobronchitis with a prescription of Z-Pack. However his symptoms got worse therefore patient's family brought him to the hospital. Patient denies any focal numbness, focal weakness, double vision, loss of vision, any headache. Objective - Vital Signs Vital signs: Vital Signs Temp 98.7 F 08/04/22 03:19 Pulse 103 H 08/04/22 03:19 Resp 16 08/04/22 03:19 BP 124/72 08/04/22 03:19 Pulse Ox 96 08/04/22 08:45 FiO2 Intake & Output 08/03/22 08/04/22 08/04/22 18:59 06:59 18:59 Intake Total 1596.616 300 Output Total 770 480 Balance 826.616 -180 Weight 91.3 kg Intake: IV 200 Sodium Chloride 0.9% 1, 200 000 ml @ 200 mls/hr IV . Q5H [facility] Rx#:[id number] Intake, IV Titration 1396.616 300 Amount D5-0.45% NaCl with KCl 450 20Meq/l 1,000 ml @ 150 mls/hr IV .Q6H40M [facility] Rx# :[id number] Dextrose 5% in Water 1, 900 300 000 ml @ 75 mls/hr IV . [id number] [facility] Rx#:[id number] Insulin Regular 100 unit 46.616 In Sodium Chloride 0.9% 100 ml @ 0.1 UNITS/KG/HR 9.163 mls/hr IV .Q11H2M [facility] Rx#:[id number] Output: Urine 770 480 Other: Voiding Method Indwelling Catheter Indwelling Catheter - Exam Gen.: The patient is seated in the bedside chair. He is well-nourished, well- developed and in no acute distress. HEENT: Head is atraumatic, normocephalic. Fundus not visualized. There is no scleral icterus. Mucous membranes are moist. Neurological examination Mental status: The patient is awake, alert and oriented 3. His speech is clear. Cranial nerves: Pupils are equal, round and reactive to light. Visual mustafa are full to confrontation. Extraocular movements are intact. There is a right facial droop. Tongue protrudes midline. Shoulder shrug is symmetric. Motor: Right car rental manager strength 3/5, triceps 4/5, biceps 5/5, hip flexor 5/5. Left- sided strength 5/5 throughout. - Labs CBC & Chem 7: 08/04/22 07:17 08/04/22 07:16 Labs: Abnormal Lab Results - Last 24 Hours (Table) 08/03/22 08/03/22 08/03/22 Range/Units 09:28 10:36 10:58 WBC (3.8-10.6) k/uL MCHC (31.0-37.0) g/dL Neutrophils # (1.3-7.7) k/uL Monocytes # (0-1.0) k/uL Sodium (137-145) mmol/L Chloride (98-107) mmol/L BUN (9-20) mg/dL Creatinine (0.66-1.25) mg/dL Glucose (74-99) mg/dL POC Glucose (mg/dL) 175 H 134 H 181 H (70-110) mg/dL Hemoglobin A1c (0.0-6.0) % Magnesium (1.6-2.3) mg/dL Procalcitonin (0.02-0.09) ng/mL 08/03/22 08/03/22 08/03/22 Range/Units 11:53 12:20 12:20 WBC (3.8-10.6) k/uL MCHC (31.0-37.0) g/dL Neutrophils # (1.3-7.7) k/uL Monocytes # (0-1.0) k/uL Sodium 152 H (137-145) mmol/L Chloride 118 H (98-107) mmol/L BUN 60 H (9-20) mg/dL Creatinine 1.94 H (0.66-1.25) mg/dL Glucose 147 H (74-99) mg/dL POC Glucose (mg/dL) 130 H (70-110) mg/dL Hemoglobin A1c (0.0-6.0) % Magnesium (1.6-2.3) mg/dL Procalcitonin 0.23 H (0.02-0.09) ng/mL 08/03/22 08/03/22 08/03/22 Range/Units 12:53 13:55 14:45 WBC (3.8-10.6) k/uL MCHC (31.0-37.0) g/dL Neutrophils # (1.3-7.7) k/uL Monocytes # (0-1.0) k/uL Sodium (137-145) mmol/L Chloride (98-107) mmol/L BUN (9-20) mg/dL Creatinine (0.66-1.25) mg/dL Glucose (74-99) mg/dL POC Glucose (mg/dL) 142 H 191 H 238 H (70-110) mg/dL Hemoglobin A1c (0.0-6.0) % Magnesium (1.6-2.3) mg/dL Procalcitonin (0.02-0.09) ng/mL 08/03/22 08/03/22 08/03/22 Range/Units 16:23 18:20 20:34 WBC (3.8-10.6) k/uL MCHC (31.0-37.0) g/dL Neutrophils # (1.3-7.7) k/uL Monocytes # (0-1.0) k/uL Sodium 147 H (137-145) mmol/L Chloride (98-107) mmol/L BUN (9-20) mg/dL Creatinine (0.66-1.25) mg/dL Glucose (74-99) mg/dL POC Glucose (mg/dL) 261 H 265 H (70-110) mg/dL Hemoglobin A1c (0.0-6.0) % Magnesium (1.6-2.3) mg/dL Procalcitonin (0.02-0.09) ng/mL 08/03/22 08/03/22 08/04/22 Range/Units 23:15 23:15 07:11 WBC (3.8-10.6) k/uL MCHC (31.0-37.0) g/dL Neutrophils # (1.3-7.7) k/uL Monocytes # (0-1.0) k/uL Sodium 146 H (137-145) mmol/L Chloride 114 H (98-107) mmol/L BUN 40 H (9-20) mg/dL Creatinine (0.66-1.25) mg/dL Glucose 281 H (74-99) mg/dL POC Glucose (mg/dL) 309 H (70-110) mg/dL Hemoglobin A1c 12.0 H (0.0-6.0) % Magnesium 2.9 H (1.6-2.3) mg/dL Procalcitonin (0.02-0.09) ng/mL 08/04/22 08/04/22 Range/Units 07:16 07:17 WBC 22.2 H (3.8-10.6) k/uL MCHC 30.9 L (31.0-37.0) g/dL Neutrophils # 17.6 H (1.3-7.7) k/uL Monocytes # 1.2 H (0-1.0) k/uL Sodium (137-145) mmol/L Chloride 112 H (98-107) mmol/L BUN 30 H (9-20) mg/dL Creatinine (0.66-1.25) mg/dL Glucose 347 H (74-99) mg/dL POC Glucose (mg/dL) (70-110) mg/dL Hemoglobin A1c (0.0-6.0) % Magnesium (1.6-2.3) mg/dL Procalcitonin (0.02-0.09) ng/mL Assessment and Plan Assessment: 1) Generalized weakness, slurring, probable multifactorial. Patient has severe DKA which likely is the cause of generalized weakness. Slurring could be related to severe thrush noted. Patient does have mild right-sided vocal symptoms, uncertain if new or related to previous deficits from the stroke from 07/03/2010. The patient's generalized weakness has resolved at this time. He does continue to have mild right sided weakness consistent with his previous stroke. 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 Plan: 1) Await MRI of brain And MRA 2) Await 2-D echocardiogram 3) agree, if MRI brain is positive for acute infarction, dual antiplatelet therapy would be indicated 4) tobacco cessation is recommended 5) control of diabetes Time with Patient: Greater than 30 (Spent 35 minutes caring for this patient today, including obtaining a history, examining the patient, reviewing imaging, labs, chart documentation and creating this note)
[2022-08-04] MEDS: NICOTINE 14MG/24HR PATCH TRANSDERM SCH (10:02)
--- NOTE | 2022-08-04 11:29 | P.PN ---
Subjective Patient is seen for follow-up for acute kidney injury. Admitted with mental status changes and found to have significant hyperglycemia of blood glucose above 1000 with DKA. Serum acetone was positive. Serum sodium was elevated at 152 and now decreased to 140. Currently maintained on D5W. Off of IV insulin Feels well with no significant complaints today. Tolerating oral intake. Objective - Vital Signs Vital signs: Vital Signs Temp 98.0 F 08/04/22 07:37 Pulse 101 H 08/04/22 07:37 Resp 16 08/04/22 07:37 BP 144/79 08/04/22 07:37 Pulse Ox 96 08/04/22 08:45 FiO2 Intake & Output 08/03/22 08/04/22 08/04/22 18:59 06:59 18:59 Intake Total 1596.616 300 10 Output Total 770 480 Balance 826.616 -180 10 Weight 91.3 kg Intake: IV 200 10 Invasive Line 3 10 Sodium Chloride 0.9% 1, 200 000 ml @ 200 mls/hr IV . Q5H [facility] Rx#:[id number] Intake, IV Titration 1396.616 300 Amount D5-0.45% NaCl with KCl 450 20Meq/l 1,000 ml @ 150 mls/hr IV .Q6H40M [facility] Rx# :[id number] Dextrose 5% in Water 1, 900 300 000 ml @ 75 mls/hr IV . [id number] Rx#:[id number] Insulin Regular 100 unit 46.616 In Sodium Chloride 0.9% 100 ml @ 0.1 UNITS/KG/HR 9.163 mls/hr IV .Q11H2M [facility] Rx#:[id number] Output: Urine 770 480 Other: Voiding Method Indwelling Catheter Indwelling Catheter Indwelling Catheter - Exam patient is awake comfortable, no acute distress Examination of the heart S1 and S2 Examination of the lungs bilateral breath sounds are heard Abdomen is soft nontender Examination of lower extremities shows no significant edema. DIVING INSTRUCTOR exam grossly intact - Labs CBC & Chem 7: 08/04/22 07:17 08/04/22 07:16 Labs: Abnormal Lab Results - Last 24 Hours (Table) 08/03/22 08/03/22 08/03/22 Range/Units 11:53 12:20 12:20 WBC (3.8-10.6) k/uL MCHC (31.0-37.0) g/dL Neutrophils # (1.3-7.7) k/uL Monocytes # (0-1.0) k/uL Sodium 152 H (137-145) mmol/L Chloride 118 H (98-107) mmol/L BUN 60 H (9-20) mg/dL Creatinine 1.94 H (0.66-1.25) mg/dL Glucose 147 H (74-99) mg/dL POC Glucose (mg/dL) 130 H (70-110) mg/dL Hemoglobin A1c (0.0-6.0) % Magnesium (1.6-2.3) mg/dL Procalcitonin 0.23 H (0.02-0.09) ng/mL 08/03/22 08/03/22 08/03/22 Range/Units 12:53 13:55 14:45 WBC (3.8-10.6) k/uL MCHC (31.0-37.0) g/dL Neutrophils # (1.3-7.7) k/uL Monocytes # (0-1.0) k/uL Sodium (137-145) mmol/L Chloride (98-107) mmol/L BUN (9-20) mg/dL Creatinine (0.66-1.25) mg/dL Glucose (74-99) mg/dL POC Glucose (mg/dL) 142 H 191 H 238 H (70-110) mg/dL Hemoglobin A1c (0.0-6.0) % Magnesium (1.6-2.3) mg/dL Procalcitonin (0.02-0.09) ng/mL 08/03/22 08/03/22 08/03/22 Range/Units 16:23 18:20 20:34 WBC (3.8-10.6) k/uL MCHC (31.0-37.0) g/dL Neutrophils # (1.3-7.7) k/uL Monocytes # (0-1.0) k/uL Sodium 147 H (137-145) mmol/L Chloride (98-107) mmol/L BUN (9-20) mg/dL Creatinine (0.66-1.25) mg/dL Glucose (74-99) mg/dL POC Glucose (mg/dL) 261 H 265 H (70-110) mg/dL Hemoglobin A1c (0.0-6.0) % Magnesium (1.6-2.3) mg/dL Procalcitonin (0.02-0.09) ng/mL 08/03/22 08/03/22 08/04/22 Range/Units 23:15 23:15 07:11 WBC (3.8-10.6) k/uL MCHC (31.0-37.0) g/dL Neutrophils # (1.3-7.7) k/uL Monocytes # (0-1.0) k/uL Sodium 146 H (137-145) mmol/L Chloride 114 H (98-107) mmol/L BUN 40 H (9-20) mg/dL Creatinine (0.66-1.25) mg/dL Glucose 281 H (74-99) mg/dL POC Glucose (mg/dL) 309 H (70-110) mg/dL Hemoglobin A1c 12.0 H (0.0-6.0) % Magnesium 2.9 H (1.6-2.3) mg/dL Procalcitonin (0.02-0.09) ng/mL 08/04/22 08/04/22 Range/Units 07:16 07:17 WBC 22.2 H (3.8-10.6) k/uL MCHC 30.9 L (31.0-37.0) g/dL Neutrophils # 17.6 H (1.3-7.7) k/uL Monocytes # 1.2 H (0-1.0) k/uL Sodium (137-145) mmol/L Chloride 112 H (98-107) mmol/L BUN 30 H (9-20) mg/dL Creatinine (0.66-1.25) mg/dL Glucose 347 H (74-99) mg/dL POC Glucose (mg/dL) (70-110) mg/dL Hemoglobin A1c (0.0-6.0) % Magnesium (1.6-2.3) mg/dL Procalcitonin (0.02-0.09) ng/mL Microbiology - Last 24 Hours (Table) 08/02/22 18:33 Blood Culture - Preliminary Blood 08/02/22 18:33 Blood Culture - Preliminary Blood Assessment and Plan Assessment: 1. Acute kidney injury mostly prerenal secondary to hypovolemia from severe hyperglycemia. Creatinine 2.45 on admission is 2.26 today. Creatinine 0.9 in September 2016. No proteinuria on UA. 2. DKA maintained on IV fluids and insulin drip. 3. Hyperkalemia secondary to hyperglycemia and acidosis. 4. Anion gap metabolic acidosis secondary to DKA. Improved. 5. Hypernatremia from lack of oral water intake. 6. Benign hypertension. Controlled. Plan: Continue D5 W for now Can remove Johnson catheter and monitor post void residual. Patient is maintained on Proscar. Repeat labs this evening Encourage increased oral intake.
[2022-08-04 12:08] LABS: Glucose,Whole Blood 414 mg/dL (70-110)
[2022-08-04] MEDS ORDERED: INSULIN ASPART (NovoLOG) 100 UNIT/ML VIAL SQ ONE (12:30)
[2022-08-04 13:37] LABS: Chol/HDL Ratio 3.55 Ratio; LDL Cholesterol,Calculated 49.7 mg/dL (0.0-131.0)
--- NOTE | 2022-08-04 13:42 | MR ---
EXAMINATION TYPE: MR brain wo con DATE OF EXAM: 08/04/2022 1:26 PM COMPARISON: . CLINICAL INDICATION:Male, 61 years old with history of CVA; AMS, evaluate for CVA. TECHNIQUE: Multi planar, multi sequence imaging was performed through the brain including: T1, T2, In version recovery, Diffusion weighted imaging, and gradient echo imaging. No gadolinium was given. FINDINGS: Restricted diffusion within the right cerebellum with associated high T2 signal remote injury to the left dubose radiata. Scattered white matter changes are seen throughout the deep white matter. A more confluent area of white matter change near the injury on the left dubose radiata. The ventricular sy stem, and cisterns appear unremarkable. Midline structures show no abnormality. The susceptibility we ighted images do not reveal any evidence for micro-hemorrhage. The bone marrow signal is within normal limits. Paranasal sinuses and mastoid air cells: No significant paranasal sinus disease. Visualized orbits: Orbital contents are intact. IMPRESSION: 1. Acute/subacute right cerebellar hemisphere CVA. More remote appearing left dubose radiata CVA. 2. Nonspecific white matter changes, likely secondary to small vessel ischemic disease.
--- NOTE | 2022-08-04 13:45 | MR ---
EXAMINATION TYPE: MR angio head wo con DATE OF EXAM: 08/04/2022 1:11 PM CLINICAL INDICATION:Male, 61 years old with history of Possible CVA ?Basilar artery thrombus; AMS, e valuate for CVA. COMPARISON: CT 08/03/2022 Technical: 3-D [id number] Axial with MIP reconstruction created on a separate workstation.. IV Contrast: None Findings: Vertebral arteries: The vertebral arteries are patent. The left vertebral artery is dominant. Basilar artery: The basilar artery is intact. The basilar artery bifurcation is normal. Internal Carotid arteries: The cervical, petrous, cavernous and supraclinoid segments are normal. DESI: Patent with no evidence of aneurysm. ACOM: Present without evidence of aneurysm. MCA: Patent with no evidence of aneurysm. STAFFING SPECIALIST: Patent with no evidence of aneurysm. PCOM: Hypoplastic bilaterally. IMPRESSION: No basilar artery thrombus. No evidence of aneurysm or significant stenosis.
--- NOTE | 2022-08-04 13:50 | P.PN ---
Subjective Progress Note Date: 08/04/22 Principal diagnosis: This is a 61-year-old male with medical history significant for stroke about 2010 per family he has right sided weakness and slurred speech from the prior stroke, hypertension, enlarged prostate. Patient presented to the on 08/01 with complaints of cough sinus congestion. He was sent home with azithromycin. Labs were not taken. Patient presents back to the emergency room with complaints of weakness and confusion. Most of the medical history is taken from patients son Isa over the phone. Family was concerned that patients speech pattern was worse than usual and his mentation was worsening. He was brought back to the hospital for further evaluation. Patient does live by himself, he is a current smoker, family denies history of alcohol or illicit substance use. Initial work up reveals negative chest xray unchanged. Patient found to have a blood glucose of 1357, lactic acid level of 3.8, leukocytosis of 23.4. There is acute kidney injury with creatinine of 3.45. Alk phos is elevated at 153. Patient is acetone positive and urinalysis is positive for ketones. Covid/influenza/RSV are all negative. Patient was started on insulin gtt per the DKA protocol and given 2 Liter fluid bolus. He is admitted to the intensive care unit. Nephrology and neurology consultation is requested. Bread Wrapper Operator is following. 08/04. Patient seen and examined .labs include a white count 22.2, hemoglobin 13.6, hematocrit 44, and platelet count 155,000. Only 144, potassium 4.6, chlorides 112, CO2 26, anion gap 6, BUN 30, and creatinine 1.19. REVIEW OF SYSTEMS: CONSTITUTIONAL: No fever, no malaise,. CARDIOVASCULAR: No chest pain, no palpitations, no syncope. PULMONARY: No shortness of breath, no cough, GASTROINTESTINAL: No diarrhea, no nausea, no vomiting, no abdominal pain. NEUROLOGICAL: No headaches, no weakness, PHYSICAL EXAMINATION: GENERAL: The patient is alert and oriented x3, not in any acute distress. Well developed, well nourished. HEENT: Pupils are round and equally reacting to light. EOMI. No scleral icterus. No conjunctival pallor. Normocephalic, atraumatic. No pharyngeal erythema. No thyromegaly. CARDIOVASCULAR: S1 and S2 present. No murmurs, rubs, or gallops. PULMONARY: Chest is clear to auscultation, no wheezing or crackles. ABDOMEN: Soft, nontender, nondistended, normoactive bowel sounds. No palpable organomegaly. MUSCULOSKELETAL: No joint swelling or deformity. EXTREMITIES: No cyanosis, clubbing, or pedal edema. NEUROLOGICAL: Gross neurological examination did not reveal any focal deficits. SKIN: No rashes. Assessment and plan Altered mental status from acute metabolic encephalopathy from the hyperglycemia, patient has worsening slurred speech rule out acute stroke Hyperosmolar hyperglycemia and new onset diabetes mellitus blood glucose over 1300 on admission Anion gap metabolic acidosis Lactic acidosis and leukocytosis from dehydration Acute kidney injury Hyperkalemia from the MADALYN Oral thrush Acute sinusitis History of hypertension currently normotensive holding ROBBIE inhibitor secondary to the hyperkalema and MADALYN History of stroke with right sided weakness and slurred speech per family Chronic and ongoing nicotine use Benign prostatic hyperplasia Obesity Plan; Monitor vital signs Monitor CBC Monitor CMP Continue telemetry monitoring Continue aspirin. Monitor blood sugar levels Continue levemir and novolog. DC fluids because of hyperglycemia CT head shows remote ischemia involving the white matter within the left pa rietal lobe, no acute hemorrhage or midline shift Ultrasound of carotids show mild atherosclerotic plaque in the carotid bulbs and less than 50% stenosis of the regions of the bilateral internal carotid arteries Neurology ordered MRI brain and MRA brain as well as 2-D echo Supportive care for the sinus congestion patient is offered claritin and flonase. Speech therapy, PT/OT are consulted Objective - Vital Signs Vital signs: Vital Signs Temp 98.7 F 08/04/22 03:19 Pulse 103 H 08/04/22 03:19 Resp 16 08/04/22 03:19 BP 124/72 08/04/22 03:19 Pulse Ox 96 08/04/22 08:45 FiO2 Intake & Output 08/03/22 08/04/22 08/04/22 18:59 06:59 18:59 Intake Total 1596.616 300 Output Total 770 480 Balance 826.616 -180 Weight 91.3 kg Intake: IV 200 Sodium Chloride 0.9% 1, 200 000 ml @ 200 mls/hr IV . Q5H [facility] Rx#:[id number] Intake, IV Titration 1396.616 300 Amount D5-0.45% NaCl with KCl 450 20Meq/l 1,000 ml @ 150 mls/hr IV .Q6H40M [facility] Rx# :[id number] Dextrose 5% in Water 1, 900 300 000 ml @ 75 mls/hr IV . [id number] REPLACED BY [facility] Rx#:[id number] Insulin Regular 100 unit 46.616 In Sodium Chloride 0.9% 100 ml @ 0.1 UNITS/KG/HR 9.163 mls/hr IV .Q11H2M REPLACED BY [facility] Rx#:[id number] Output: Urine 770 480 Other: Voiding Method Indwelling Catheter Indwelling Catheter - Labs CBC & Chem 7: 08/04/22 07:17 08/04/22 07:16 Labs: Abnormal Lab Results - Last 24 Hours (Table) 08/03/22 08/03/22 08/03/22 Range/Units 09:28 10:36 10:58 WBC (3.8-10.6) k/uL MCHC (31.0-37.0) g/dL Neutrophils # (1.3-7.7) k/uL Monocytes # (0-1.0) k/uL Sodium (137-145) mmol/L Chloride (98-107) mmol/L BUN (9-20) mg/dL Creatinine (0.66-1.25) mg/dL Glucose (74-99) mg/dL POC Glucose (mg/dL) 175 H 134 H 181 H (70-110) mg/dL Hemoglobin A1c (0.0-6.0) % Magnesium (1.6-2.3) mg/dL Procalcitonin (0.02-0.09) ng/mL 08/03/22 08/03/22 08/03/22 Range/Units 11:53 12:20 12:20 WBC (3.8-10.6) k/uL MCHC (31.0-37.0) g/dL Neutrophils # (1.3-7.7) k/uL Monocytes # (0-1.0) k/uL Sodium 152 H (137-145) mmol/L Chloride 118 H (98-107) mmol/L BUN 60 H (9-20) mg/dL Creatinine 1.94 H (0.66-1.25) mg/dL Glucose 147 H (74-99) mg/dL POC Glucose (mg/dL) 130 H (70-110) mg/dL Hemoglobin A1c (0.0-6.0) % Magnesium (1.6-2.3) mg/dL Procalcitonin 0.23 H (0.02-0.09) ng/mL 08/03/22 08/03/22 08/03/22 Range/Units 12:53 13:55 14:45 WBC (3.8-10.6) k/uL MCHC (31.0-37.0) g/dL Neutrophils # (1.3-7.7) k/uL Monocytes # (0-1.0) k/uL Sodium (137-145) mmol/L Chloride (98-107) mmol/L BUN (9-20) mg/dL Creatinine (0.66-1.25) mg/dL Glucose (74-99) mg/dL POC Glucose (mg/dL) 142 H 191 H 238 H (70-110) mg/dL Hemoglobin A1c (0.0-6.0) % Magnesium (1.6-2.3) mg/dL Procalcitonin (0.02-0.09) ng/mL 08/03/22 08/03/22 08/03/22 Range/Units 16:23 18:20 20:34 WBC (3.8-10.6) k/uL MCHC (31.0-37.0) g/dL Neutrophils # (1.3-7.7) k/uL Monocytes # (0-1.0) k/uL Sodium 147 H (137-145) mmol/L Chloride (98-107) mmol/L BUN (9-20) mg/dL Creatinine (0.66-1.25) mg/dL Glucose (74-99) mg/dL POC Glucose (mg/dL) 261 H 265 H (70-110) mg/dL Hemoglobin A1c (0.0-6.0) % Magnesium (1.6-2.3) mg/dL Procalcitonin (0.02-0.09) ng/mL 08/03/22 08/03/22 08/04/22 Range/Units 23:15 23:15 07:11 WBC (3.8-10.6) k/uL MCHC (31.0-37.0) g/dL Neutrophils # (1.3-7.7) k/uL Monocytes # (0-1.0) k/uL Sodium 146 H (137-145) mmol/L Chloride 114 H (98-107) mmol/L BUN 40 H (9-20) mg/dL Creatinine (0.66-1.25) mg/dL Glucose 281 H (74-99) mg/dL POC Glucose (mg/dL) 309 H (70-110) mg/dL Hemoglobin A1c 12.0 H (0.0-6.0) % Magnesium 2.9 H (1.6-2.3) mg/dL Procalcitonin (0.02-0.09) ng/mL 08/04/22 08/04/22 Range/Units 07:16 07:17 WBC 22.2 H (3.8-10.6) k/uL MCHC 30.9 L (31.0-37.0) g/dL Neutrophils # 17.6 H (1.3-7.7) k/uL Monocytes # 1.2 H (0-1.0) k/uL Sodium (137-145) mmol/L Chloride 112 H (98-107) mmol/L BUN 30 H (9-20) mg/dL Creatinine (0.66-1.25) mg/dL Glucose 347 H (74-99) mg/dL POC Glucose (mg/dL) (70-110) mg/dL Hemoglobin A1c (0.0-6.0) % Magnesium (1.6-2.3) mg/dL Procalcitonin (0.02-0.09) ng/mL
--- NOTE | 2022-08-04 15:22 | CA ---
Transthoracic Echo Report Name: Skinny Rosas Age: 61 Gender: M : 1960 Exam Date: 08/03/2022 17:23 Exam Location: [facility] Ht (in): 68 Wt (lb): 201 Ordering Physician: Beverley Freire Attending/Referring Phys: Tani MCDONNELL Web Application Dev Specialist Venecia Tracy, MADELINE Procedure CPT: Indications: stroke Cardiac Hx: Technical Quality: Contrast 1: Total Dose (mL): Contrast 2: Total Dose (mL): MEASUREMENTS (Male / Female) Normal Values 2D ECHO LV Diastolic Diameter PLAX 3.7 cm 4.2 - 5.9 / 3.9 - 5.3 cm LV Systolic Diameter PLAX 2.5 cm IVS Diastolic Thickness 1.2 cm 0.6 - 1.0 / 0.6 - 0.9 cm LVPW Diastolic Thickness 1.1 cm 0.6 - 1.0 / 0.6 - 0.9 cm LV Relative Wall Thickness 0.6 RV Internal Dim ED PLAX 2.9 cm LA Systolic Diameter LX 3.5 cm 3.0 - 4.0 / 2.7 - 3.8 cm LA Volume 50.4 cm??? 18 - 58 / 22 - 52 cm??? M-MODE Aortic Root Diameter MM 3.4 cm MV E Point Septal Separation 0.6 cm AV Cusp Separation MM 2.1 cm DOPPLER AV Peak Velocity 187.7 cm/s AV Peak Gradient 14.1 mmHg MV Area PHT 2.8 cm??? Mitral E Point Velocity 59.6 cm/s Mitral A Point Velocity 69.1 cm/s Mitral E to A Ratio 0.9 MV Deceleration Time 273.7 ms MV E' Velocity 10.7 cm/s Mitral E to MV E' Ratio 5.6 TR Peak Velocity 270.3 cm/s TR Peak Gradient 29.2 mmHg Right Ventricular Systolic Press 34.2 mmHg FINDINGS Left Ventricle Left ventricular ejection fraction is estimated at 55-60 %. Mildly increased septal wall thickness. No obvious regional wall motion abnormalities.normal left ventricular diastolic filling pattern. Right Ventricle Normal right ventricular size and function. Right Atrium Normal right atrial size. Left Atrium Normal left atrial size. Mitral Valve Structurally normal mitral valve. No mitral stenosis, regurgitation or prolapse. Aortic Valve Trileaflet aortic valve. No aortic valve stenosis or regurgitation. Aortic valve sclerosis. Tricuspid Valve Structurally normal tricuspid valve. Mild tricuspid regurgitation. Pulmonic Valve Structurally normal pulmonic valve. No pulmonic regurgitation. Pericardium Normal pericardium. No pericardial effusion. Aorta Normal size aortic root and proximal ascending aorta. CONCLUSIONS 1. Normal left ventricle size and systolic function 2. Mild tricuspid regurgitation with normal RV systolic pressure Previewed by: Dr. Sandra Crespo MD (Electronically Signed) Final Date: 04 Aug 2022 15:21
[2022-08-04 16:37] LABS: Glucose,Whole Blood 269 mg/dL (70-110)
[2022-08-04 18:36] LABS: Calcium 8.9 mg/dL (8.4-10.2); Potassium 4.1 mmol/L (3.5-5.1)
[2022-08-04 20:14] LABS: Glucose,Whole Blood 221 mg/dL (70-110)
[2022-08-04] MEDS: ACETAMINOPHEN TAB 325 MG TAB PO PRN (20:22)
[2022-08-05] MEDS: ACETAMINOPHEN TAB 325 MG TAB PO PRN ×2 (05:24→21:02)
[2022-08-05 07:17] LABS: Glucose,Whole Blood 143 mg/dL (70-110)
[2022-08-05] MEDS: ASPIRIN 81 MG PO SCH (07:43)
[2022-08-05] MEDS: NYSTATIN 100,000 UNIT/ML SUSP 500,000 UNIT/5 ML CUP PO SCH ×4 (07:43→20:37)
[2022-08-05] MEDS: TAMSULOSIN 0.4 MG CAP.ER.24H PO SCH (07:43)
[2022-08-05] MEDS: PANTOPRAZOLE 40 MG/10 ML VIAL IVP SCH (07:43)
[2022-08-05] MEDS: HEPARIN SODIUM,PORCINE/PF 5,000 UNIT/0.5 ML SYRINGE SQ SCH ×2 (07:43→20:37)
[2022-08-05] MEDS: INSULIN ASPART (NovoLOG) 100 UNIT/ML VIAL SQ SCH ×7 (07:43→20:38)
[2022-08-05] MEDS: FINASTERIDE 5 MG TAB PO SCH (07:43)
[2022-08-05] MEDS: INSULIN DETEMIR (LEVEMIR) 100 UNIT/ML SYR SQ SCH ×2 (07:43→20:38)
[2022-08-05] MEDS: LORATADINE 10 MG TAB PO SCH (07:43)
[2022-08-05] MEDS: ATORVASTATIN 10 MG TAB PO SCH (07:43)
[2022-08-05] MEDS: NICOTINE 14MG/24HR PATCH TRANSDERM SCH (07:44)
[2022-08-05 10:32] LABS: African American GFR (CKD) >90 (>60 ml/min/1.73 sqM); Anion Gap 7 mmol/L; Blood Urea Nitrogen 18 mg/dL (9-20); Calcium 8.7 mg/dL (8.4-10.2); Carbon Dioxide 26 mmol/L (22-30); Chloride 107 mmol/L (98-107); Glucose 209 mg/dL (74-99); Non-African American GFR(CKD) 87 (>60 ml/min/1.73 sqM); Potassium 4.1 mmol/L (3.5-5.1); Sodium 140 mmol/L (137-145)
--- NOTE | 2022-08-05 10:59 | P.PN ---
Subjective Patient is seen for follow-up for acute kidney injury. Admitted with mental status changes and found to have significant hyperglycemia of blood glucose above 1000 with DKA. Serum acetone was positive. Serum sodium was elevated at 152 and now decreased to 140. Status post D5W. Off of IV insulin Feels well with no significant complaints today. Tolerating oral intake. Objective - Vital Signs Vital signs: Vital Signs Temp 97.8 F 08/05/22 07:42 Pulse 106 H 08/05/22 07:42 Resp 16 08/05/22 07:42 BP 144/86 08/05/22 07:42 Pulse Ox 97 08/05/22 07:42 FiO2 Intake & Output 08/04/22 08/05/22 08/05/22 18:59 06:59 18:59 Intake Total 3730 40 138 Output Total 1050 Balance 2680 40 138 Weight 93.2 kg Intake: IV 30 40 20 Invasive Line 2 10 20 10 Invasive Line 3 20 20 10 Oral 3700 118 Output: Urine 1050 Other: Voiding Method Indwelling Catheter Toilet Toilet - Exam patient is awake comfortable, no acute distress Examination of the heart S1 and S2 Examination of the lungs bilateral breath sounds are heard Abdomen is soft nontender Examination of lower extremities shows no significant edema. CHANGE ADVISOR exam grossly intact - Labs CBC & Chem 7: 08/04/22 07:17 08/05/22 09:28 Labs: Abnormal Lab Results - Last 24 Hours (Table) 08/04/22 08/04/22 08/04/22 Range/Units 07:16 12:06 16:35 Chloride (98-107) mmol/L BUN (9-20) mg/dL Glucose (74-99) mg/dL POC Glucose (mg/dL) 414 H 269 H (70-110) mg/dL Triglycerides 233.00 H (0.00-149.00) mg/dL VLDL Cholesterol, Calc 46.60 H (5.00-40.00) mg/dL HDL Cholesterol 37.70 L (40.00-60.00) mg/dL 08/04/22 08/04/22 08/05/22 Range/Units 18:13 20:13 07:15 Chloride 108 H (98-107) mmol/L BUN 22 H (9-20) mg/dL Glucose 306 H (74-99) mg/dL POC Glucose (mg/dL) 221 H 143 H (70-110) mg/dL Triglycerides (0.00-149.00) mg/dL VLDL Cholesterol, Calc (5.00-40.00) mg/dL HDL Cholesterol (40.00-60.00) mg/dL 08/05/22 Range/Units 09:28 Chloride (98-107) mmol/L BUN (9-20) mg/dL Glucose 209 H (74-99) mg/dL POC Glucose (mg/dL) (70-110) mg/dL Triglycerides (0.00-149.00) mg/dL VLDL Cholesterol, Calc (5.00-40.00) mg/dL HDL Cholesterol (40.00-60.00) mg/dL Microbiology - Last 24 Hours (Table) 08/02/22 18:33 Blood Culture - Preliminary Blood 08/02/22 18:33 Blood Culture - Preliminary Blood Assessment and Plan Assessment: 1. Acute kidney injury mostly prerenal secondary to hypovolemia from severe hyperglycemia. Creatinine 2.45 on admission is 0.9 today. Creatinine 0.9 in September 2016. No proteinuria on UA. 2. DKA maintained on IV fluids and insulin drip. 3. Hyperkalemia secondary to hyperglycemia and acidosis. 4. Anion gap metabolic acidosis secondary to DKA. Improved. 5. Hypernatremia from lack of oral water intake. 6. Benign hypertension. Controlled. Plan: Continue off of IV fluids. Continue to encourage increase oral intake.
[2022-08-05 12:01] LABS: Glucose,Whole Blood 163 mg/dL (70-110)
--- NOTE | 2022-08-05 12:42 | P.PN ---
Subjective Progress Note Date: 08/05/22 Principal diagnosis: This is a 61-year-old male with medical history significant for stroke about 2010 per family he has right sided weakness and slurred speech from the prior stroke, hypertension, enlarged prostate. Patient presented to the on 08/01 with complaints of cough sinus congestion. He was sent home with azithromycin. Labs were not taken. Patient presents back to the emergency room with complaints of weakness and confusion. Most of the medical history is taken from patients son Isa over the phone. Family was concerned that patients speech pattern was worse than usual and his mentation was worsening. He was brought back to the hospital for further evaluation. Patient does live by himself, he is a current smoker, family denies history of alcohol or illicit substance use. Initial work up reveals negative chest xray unchanged. Patient found to have a blood glucose of 1357, lactic acid level of 3.8, leukocytosis of 23.4. There is acute kidney injury with creatinine of 3.45. Alk phos is elevated at 153. Patient is acetone positive and urinalysis is positive for ketones. Covid/influenza/RSV are all negative. Patient was started on insulin gtt per the DKA protocol and given 2 Liter fluid bolus. He is admitted to the intensive care unit. Nephrology and neurology consultation is requested. Field Return Repairer is following. 5. Patient seen and examined .labs include a white count 22.2, hemoglobin 13.6, hematocrit 44, and platelet count 155,000. Only 144, potassium 4.6, chlorides 112, CO2 26, anion gap 6, BUN 30, and creatinine 1.19. 5/7. Patient seen and examined. Vital signs this morning are temperature 97.8, heart rate 106, respirations 16, blood pressure 144/86. Blood sugars are better controlled compared to yesterday REVIEW OF SYSTEMS: CONSTITUTIONAL: No fever, no malaise,. CARDIOVASCULAR: No chest pain, no palpitations, no syncope. PULMONARY: No shortness of breath, no cough, GASTROINTESTINAL: No diarrhea, no nausea, no vomiting, no abdominal pain. NEUROLOGICAL: No headaches, no weakness, PHYSICAL EXAMINATION: GENERAL: The patient is alert and oriented x3, not in any acute distress. Well developed, well nourished. HEENT: Pupils are round and equally reacting to light. EOMI. No scleral icterus. No conjunctival pallor. Normocephalic, atraumatic. No pharyngeal erythema. No thyromegaly. CARDIOVASCULAR: S1 and S2 present. No murmurs, rubs, or gallops. PULMONARY: Chest is clear to auscultation, no wheezing or crackles. ABDOMEN: Soft, nontender, nondistended, normoactive bowel sounds. No palpable organomegaly. MUSCULOSKELETAL: No joint swelling or deformity. EXTREMITIES: No cyanosis, clubbing, or pedal edema. NEUROLOGICAL: Gross neurological examination did not reveal any focal deficits. SKIN: No rashes. Assessment and plan Altered mental status from acute metabolic encephalopathy from the hyperglycemia Acute CVA Hyperosmolar hyperglycemia and new onset diabetes mellitus blood glucose over 1300 on admission Anion gap metabolic acidosis Lactic acidosis and leukocytosis from dehydration Acute kidney injury Hyperkalemia from the MADALYN Oral thrush Acute sinusitis History of hypertension currently normotensive holding ROBBIE inhibitor secondary to the hyperkalema and MADALYN History of stroke with right sided weakness and slurred speech per family Chronic and ongoing nicotine use Benign prostatic hyperplasia Obesity Plan; Monitor vital signs Monitor CBC Monitor CMP Continue telemetry monitoring Continue aspirin. Neurology recommended dual antiplatelet therapy if MRI shows acute stroke, discussed with patient, agreeable to be started on Plavix Monitor blood sugar levels Continue levemir and novolog. CT head shows remote ischemia involving the white matter within the left parietal lobe, no acute hemorrhage or midline shift Ultrasound of carotids show mild atherosclerotic plaque in the carotid bulbs and less than 50% stenosis of the regions of the bilateral internal carotid arteries MRI brain done showed acute/subacute right cerebral hemisphere CVA. More remote appearing left dubose radiata CVA MRA negative for any basilar artery thrombus Echo done showed normal left medical systolic function, showed mild tricuspid regurg with normal RV Supportive care for the sinus congestion patient is offered claritin and flonase. Follow-up on neurology recommendations Objective - Vital Signs Vital signs: Vital Signs Temp 97.8 F 08/05/22 07:42 Pulse 106 H 08/05/22 07:42 Resp 16 08/05/22 07:42 BP 144/86 08/05/22 07:42 Pulse Ox 97 08/05/22 07:42 FiO2 Intake & Output 08/04/22 08/05/22 08/05/22 18:59 06:59 18:59 Intake Total 3730 40 138 Output Total 1050 Balance 2680 40 138 Weight 93.2 kg Intake: IV 30 40 20 Invasive Line 2 10 20 10 Invasive Line 3 20 20 10 Oral 3700 118 Output: Urine 1050 Other: Voiding Method Indwelling Catheter Toilet Toilet - Labs CBC & Chem 7: 08/04/22 07:17 08/05/22 09:28 Labs: Abnormal Lab Results - Last 24 Hours (Table) 08/04/22 08/04/22 08/04/22 Range/Units 07:16 12:06 16:35 Chloride (98-107) mmol/L BUN (9-20) mg/dL Glucose (74-99) mg/dL POC Glucose (mg/dL) 414 H 269 H (70-110) mg/dL Triglycerides 233.00 H (0.00-149.00) mg/dL VLDL Cholesterol, Calc 46.60 H (5.00-40.00) mg/dL HDL Cholesterol 37.70 L (40.00-60.00) mg/dL 08/04/22 08/04/22 08/05/22 Range/Units 18:13 20:13 07:15 Chloride 108 H (98-107) mmol/L BUN 22 H (9-20) mg/dL Glucose 306 H (74-99) mg/dL POC Glucose (mg/dL) 221 H 143 H (70-110) mg/dL Triglycerides (0.00-149.00) mg/dL VLDL Cholesterol, Calc (5.00-40.00) mg/dL HDL Cholesterol (40.00-60.00) mg/dL Microbiology - Last 24 Hours (Table) 08/02/22 18:33 Blood Culture - Preliminary Blood 08/02/22 18:33 Blood Culture - Preliminary Blood
--- NOTE | 2022-08-05 12:54 | P.PN ---
Subjective Progress Note Date: 08/05/22 Principal diagnosis: Diabetic ketoacidosis. 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 He also has chronic and ongoing tobacco dependence of greater than 40 years. He had recently been having issues with upper respiratory tract symptoms including cough congestion. He developed weakness and confusion and was brought into the emergency room yesterday. Influenza screen negative. RSV screen negative. COVID-19 screen negative. He was found to have new onset diabetes mellitus with diabetic ketoacidosis with anion gap metabolic acidosis. His glucose was 1357. Initial labs revealed a white count of 23.4. Hemoglobin 15.5. Sodium 134. Potassium 6.0. Bicarb 16. Anion gap 26. BUN 68. Creatinine 3.45. Acetone positive. Chest x-ray revealed no acute pulmonary process. He was initiated on the DKA protocol and admitted to the intensive care unit where he is seen today in consultation. He is currently resting comfortably in bed. Awake and alert in no acute distress. His speech is somewhat garbled. Unsure of his baseline based on his previous CVAs. He is maintaining O2 saturations in the 90s on 4 L/m per nasal cannula. He does have symptoms a few scattered rhonchi. He is currently on D5.45 with 20 of KCl at 50 MLS per hour. He is on an insulin drip at 9 units per hour. Progress note dated 08/04/2022. 61-year-old black male who was seen yesterday in consultation. He was admitted to the hospital with a diagnosis of diabetic ketoacidosis, hyperosmolar hyperglycemic state, and renal failure, with metabolic acidosis his mental statu s was poor yesterday. Today, he is doing much better. He is much more awake and alert. He is getting D5W at 75 mL an hour, and 3 L of oxygen. His CAT scan of the brain showed remote ischemia. Currently labs include a white count 22.2, hemoglobin 13.6, hematocrit 44, and platelet count 155,000. Only 144, potassium 4.6, chlorides 112, CO2 26, anion gap 6, BUN 30, and creatinine 1.19. Progress note dated 08/05/2022. 61-year-old male seen today in room 350. The patient's doing well. Currently he is on room air. He's not receiving any IV fluids. From the pulmonary perspective, and the critical care perspective, the patient could be considered for possible discharge. He denies any respiratory issues including shortness of breath, cough, wheezing, chest tightness, or phlegm production. Labs today include a sodium 140, potassium 4.1, chlorides 107, CO2 26, BUN 18, creatinine 0.95. Glucose 163. Calcium is normal. Objective - Vital Signs Vital signs: Vital Signs Temp 97.8 F 08/05/22 07:42 Pulse 106 H 08/05/22 07:42 Resp 16 08/05/22 07:42 BP 144/86 08/05/22 07:42 Pulse Ox 97 08/05/22 07:42 FiO2 Intake & Output 08/04/22 08/05/22 08/05/22 18:59 06:59 18:59 Intake Total 3730 40 138 Output Total 1050 Balance 2680 40 138 Weight 93.2 kg Intake: IV 30 40 20 Invasive Line 2 10 20 10 Invasive Line 3 20 20 10 Oral 3700 118 Output: Urine 1050 Other: Voiding Method Indwelling Catheter Toilet Toilet - Exam No acute distress, oriented 3. Much more awake and alert. Currently on room air. HEENT examination is grossly unremarkable. Neck supple. Full range of motion. No adenopathy thyromegaly or neck vein distention. Cardiovascular examination reveals regular rhythm rate. S1-S2 normal. No S3 or S4. No discernible murmur noted. Heart rate 89 bpm. Lungs reveal clear breath sounds. Breath sounds are equal bilaterally. No adventitious lung sounds including wheezes rhonchi or crackles. Saturations are 97% on room air. Abdomen soft bowel sounds are heard. No masses or tenderness. Extremities are intact. No cyanosis clubbing or edema. Skin is without rash or lesion. Neurologic examination is brief but nonfocal. - Labs CBC & Chem 7: 08/04/22 07:17 08/05/22 09:28 Labs: Abnormal Lab Results - Last 24 Hours (Table) 08/04/22 08/04/22 08/04/22 Range/Units 07:16 16:35 18:13 Chloride 108 H (98-107) mmol/L BUN 22 H (9-20) mg/dL Glucose 306 H (74-99) mg/dL POC Glucose (mg/dL) 269 H (70-110) mg/dL Triglycerides 233.00 H (0.00-149.00) mg/dL VLDL Cholesterol, Calc 46.60 H (5.00-40.00) mg/dL HDL Cholesterol 37.70 L (40.00-60.00) mg/dL 08/04/22 08/05/22 08/05/22 Range/Units 20:13 07:15 09:28 Chloride (98-107) mmol/L BUN (9-20) mg/dL Glucose 209 H (74-99) mg/dL POC Glucose (mg/dL) 221 H 143 H (70-110) mg/dL Triglycerides (0.00-149.00) mg/dL VLDL Cholesterol, Calc (5.00-40.00) mg/dL HDL Cholesterol (40.00-60.00) mg/dL 08/05/22 Range/Units 12:00 Chloride (98-107) mmol/L BUN (9-20) mg/dL Glucose (74-99) mg/dL POC Glucose (mg/dL) 163 H (70-110) mg/dL Triglycerides (0.00-149.00) mg/dL VLDL Cholesterol, Calc (5.00-40.00) mg/dL HDL Cholesterol (40.00-60.00) mg/dL Microbiology - Last 24 Hours (Table) 08/02/22 18:33 Blood Culture - Preliminary Blood 08/02/22 18:33 Blood Culture - Preliminary Blood Assessment and Plan Assessment: Acute new onset diabetes mellitus with diabetic ketoacidosis versus hype rglycemic hyperosmolar syndrome with acute renal failure. Anion gap metabolic acidosis secondary to above, resolved. Leukocytosis. Acute renal failure. Hyperkalemia. History of previous CVA's. Hypertension. Chronic and ongoing tobacco dependence. Benign prostatic hyperplasia. Plan: Plan dated 08/04/2022. The patient is seen today in room 350. Yesterday, he was in the intensive care unit. The patient's anion gap is been closed. His bicarbonate concentration is in the near normal range. His renal failure is improved. The computed tomography scan of the brain suggested more remote ischemic events. He does have a history of previous CVAs in the past. Overall, the patient's doing much better. Moving forward, we'll see the patient only as needed. The patient likely does not need oxygen therapy. Additional recommendations and suggestions are forthcoming. Plan dated 08/05/2022. The patient is seen today in room 350. The patient's doing all. Labs, x-rays, and medications are reviewed. His electrolytes completely back to normal. The patient is not having any issues with blood pressure, or respiratory status. Moving forward, we will see the patient only as needed. No additional recommendations are made. The patient has no complaints today. Time with Patient: Less than 30
--- NOTE | 2022-08-05 15:15 | P.PN ---
Subjective Progress Note Date: 08/05/22 The patient is a 61-year-old -English male who is being seen in neurologic follow-up on August 05, 2022, via teleneurology. The chart has been reviewed. MRI of the brain was completed and reveals signs of an acute infarct in the right cerebellar hemisphere. MRA reveals no significant basilar stenosis or occlusion. The patient reportedly was admitted with diabetic ketoacidosis and renal failure. Neurology was asked to see the patient because of mental status changes, weakness and concern for stroke. The patient has a history of cerebral ischemia with residual right-sided weakness. This morning, the patient is seated in the bedside chair. He reports that he is feeling much better. He says that he ate breakfast. He corroborates the symptoms that are reported in the history and physical. He says that they have resolved. Per neurology consultation: Patient is a 61-year-old right-handed male with history of hypertension, tobacco use, came to the hospital yesterday at 6:11 PM for strokelike symptoms, generalized weakness and slurred speech. Patient's sons were present, who provided with a history. They mentioned that patient's symptoms started last Saturday or Saturday, July 27 or 2022 with hard time talking, like tongue was swollen, thick and his body felt weak, almost like a flu or cold symptoms. By Saturday his symptoms were not getting better. As the days progressed, his weakness got worse, was getting very weak hard time walking and talking. He then started having hallucinations, like getting dressed although was not needed, and was not thinking clearly. Patient's family brought him to the hospital on 08/01/2022. Upper respiratory infection was suspected and patient was discharged with possible tracheobronchitis with a prescription of Z-Pack. However his symptoms got worse therefore patient's family brought him to the hospital. Patient denies any focal numbness, focal weakness, double vision, loss of vision, any headache. Objective - Vital Signs Vital signs: Vital Signs Temp 97.8 F 08/05/22 07:42 Pulse 106 H 08/05/22 07:42 Resp 16 08/05/22 07:42 BP 144/86 08/05/22 07:42 Pulse Ox 97 08/05/22 07:42 FiO2 Intake & Output 08/04/22 08/05/22 08/05/22 18:59 06:59 18:59 Intake Total 3730 40 138 Output Total 1050 Balance 2680 40 138 Weight 93.2 kg Intake: IV 30 40 20 Invasive Line 2 10 20 10 Invasive Line 3 20 20 10 Oral 3700 118 Output: Urine 1050 Other: Voiding Method Indwelling Catheter Toilet Toilet - Exam Gen.:The patient is seated in the bedside chair. He is well-nourished, well- developed and in no acute distress. HEENT: Head is atraumatic, normocephalic. Fundus not visualized. There is no scleral icterus. Mucous membranes are moist. Cranial nerves: Right facial droop continues, otherwise cranial nerves are intact - Labs CBC & Chem 7: 08/04/22 07:17 08/05/22 09:28 Labs: Abnormal Lab Results - Last 24 Hours (Table) 08/04/22 08/04/22 08/04/22 Range/Units 07:16 12:06 16:35 Chloride (98-107) mmol/L BUN (9-20) mg/dL Glucose (74-99) mg/dL POC Glucose (mg/dL) 414 H 269 H (70-110) mg/dL Triglycerides 233.00 H (0.00-149.00) mg/dL VLDL Cholesterol, Calc 46.60 H (5.00-40.00) mg/dL HDL Cholesterol 37.70 L (40.00-60.00) mg/dL 08/04/22 08/04/22 08/05/22 Range/Units 18:13 20:13 07:15 Chloride 108 H (98-107) mmol/L BUN 22 H (9-20) mg/dL Glucose 306 H (74-99) mg/dL POC Glucose (mg/dL) 221 H 143 H (70-110) mg/dL Triglycerides (0.00-149.00) mg/dL VLDL Cholesterol, Calc (5.00-40.00) mg/dL HDL Cholesterol (40.00-60.00) mg/dL 08/05/22 Range/Units 09:28 Chloride (98-107) mmol/L BUN (9-20) mg/dL Glucose 209 H (74-99) mg/dL POC Glucose (mg/dL) (70-110) mg/dL Triglycerides (0.00-149.00) mg/dL VLDL Cholesterol, Calc (5.00-40.00) mg/dL HDL Cholesterol (40.00-60.00) mg/dL Microbiology - Last 24 Hours (Table) 08/02/22 18:33 Blood Culture - Preliminary Blood 08/02/22 18:33 Blood Culture - Preliminary Blood Assessment and Plan Assessment: 1) Generalized weakness, slurring, probable multifactorial. MRI of the brain reveals an acute infarct in the right cerebellar hemisphere Patient has severe DKA which likely is the cause of generalized weakness. The patient's generalized weakness has resolved at this time. He does continue to have mild right sided weakness consistent with his previous stroke. Likely, the presenting symptoms are secondary to toxic, metabolic, infectious etiology, As well as a new acute right cerebellar infarction 2) New onset diabetes, presenting with DKA 3)Probable thrush 4) History of CVA 07/03/2010 with residual, mild right-sided weakness 5) Tobacco use 6) Hypertension 7) Renal insufficiency, moderate. Plan: 1) Discussed MRI results with patient and family who were present at the bedside 2) 3) Dual antiplatelet therapy, Plavix 75 mg daily has been started 4) tobacco cessation is recommended 5) Control of diabetes-Family questions assistance with diabetic diet. Dietitian consultation has been ordered Dr. Jurado will assume neurologic coverage of this patient as of 08/06/2022 Time with Patient: Greater than 30 (40 minutes have been spent caring for this patient today including, obtaining a history, examining the patient, reviewing imaging, chart documentation, labs discussing results with patient and family, placing orders and creating this note)
[2022-08-05 16:55] LABS: Glucose,Whole Blood 258 mg/dL (70-110)
[2022-08-05 19:58] LABS: Glucose,Whole Blood 252 mg/dL (70-110)
[2022-08-05] MEDS: LATANOPROST 0.005% OPHTH DROPS 2.5 ML BTL BOTH EYES SCH (20:38)
[2022-08-06 05:29] LABS: Glucose,Whole Blood 135 mg/dL (70-110)
[2022-08-06] MEDS: INSULIN ASPART (NovoLOG) 100 UNIT/ML VIAL SQ SCH ×7 (05:41→20:24)
[2022-08-06] MEDS: INSULIN DETEMIR (LEVEMIR) 100 UNIT/ML SYR SQ SCH ×2 (07:01→20:23)
[2022-08-06 08:17] LABS: Basophils # (A) 0.1 k/uL (0-0.2); Basophils % (A) 0 %; Eosinophils # (A) 0.4 k/uL (0-0.7); Eosinophils % (A) 3 %; HCT 42.5 % (39.0-53.0); HGB 13.9 gm/dL (13.0-17.5); Lymphocytes # (A) 2.9 k/uL (1.0-4.8); Lymphocytes % (A) 21 %; MCHC 32.8 g/dL (31.0-37.0); Monocytes # (A) 0.8 k/uL (0-1.0); Monocytes % (A) 6 %; Neutrophils # (A) 9.5 k/uL (1.3-7.7); Neutrophils % (A) 68 %; Platelet Count 137 k/uL (150-450); RBC 4.64 m/uL (4.30-5.90); RDW 12.9 % (11.5-15.5); WBC 13.9 k/uL (3.8-10.6)
[2022-08-06 08:20] LABS: MCV 91.4 fL (80.0-100.0)
[2022-08-06 08:21] LABS: ALT 31 U/L (4-49); AST 27 U/L (17-59); African American GFR (CKD) >90 (>60 ml/min/1.73 sqM); Albumin 3.5 g/dL (3.5-5.0); Alkaline Phosphatase 105 U/L (38-126); Anion Gap 7 mmol/L; Blood Urea Nitrogen 13 mg/dL (9-20); Carbon Dioxide 25 mmol/L (22-30); Chloride 109 mmol/L (98-107); Glucose 134 mg/dL (74-99); Non-African American GFR(CKD) >90 (>60 ml/min/1.73 sqM); Potassium 4.2 mmol/L (3.5-5.1); Sodium 141 mmol/L (137-145); Total Bilirubin 0.6 mg/dL (0.2-1.3); Total Protein 6.1 g/dL (6.3-8.2)
[2022-08-06 09:08] VITALS: RESP 16
[2022-08-06] MEDS: NICOTINE 14MG/24HR PATCH TRANSDERM SCH (09:08)
[2022-08-06] MEDS: HEPARIN SODIUM,PORCINE/PF 5,000 UNIT/0.5 ML SYRINGE SQ SCH ×2 (09:08→20:24)
[2022-08-06] MEDS: FINASTERIDE 5 MG TAB PO SCH (09:08)
[2022-08-06] MEDS: CLOPIDOGREL 75 MG TAB PO SCH (09:08)
[2022-08-06] MEDS: ASPIRIN 81 MG PO SCH (09:08)
[2022-08-06] MEDS: ATORVASTATIN 10 MG TAB PO SCH (09:08)
[2022-08-06] MEDS: TAMSULOSIN 0.4 MG CAP.ER.24H PO SCH (09:09)
[2022-08-06] MEDS: LORATADINE 10 MG TAB PO SCH (09:09)
[2022-08-06] MEDS: NYSTATIN 100,000 UNIT/ML SUSP 500,000 UNIT/5 ML CUP PO SCH ×4 (09:09→20:58)
[2022-08-06] MEDS: PANTOPRAZOLE 40 MG/10 ML VIAL IVP SCH (09:09)
--- NOTE | 2022-08-06 10:55 | P.PN ---
Subjective Patient is seen for follow-up for acute kidney injury. Admitted with mental status changes and found to have significant hyperglycemia of blood glucose above 1000 with DKA. Serum acetone was positive. Serum sodium was elevated at 152 and now decreased to 141. Status post D5W. Feels well with no significant complaints today. Tolerating oral intake. Objective - Vital Signs Vital signs: Vital Signs Temp 98.2 F 08/06/22 09:07 Pulse 95 08/06/22 09:07 Resp 16 08/06/22 09:07 BP 148/81 08/06/22 09:07 Pulse Ox 99 08/06/22 09:07 FiO2 21 08/06/22 07:48 Intake & Output 08/05/22 08/06/22 08/06/22 18:59 06:59 18:59 Intake Total 518 10 118 Balance 518 10 118 Intake: IV 40 10 Invasive Line 2 20 10 Invasive Line 3 20 Oral [id number] Other: Voiding Method Toilet Toilet - Exam patient is awake comfortable, no acute distress Examination of the heart S1 and S2 Examination of the lungs bilateral breath sounds are heard Abdomen is soft nontender Examination of lower extremities shows no significant edema. RHIA exam grossly intact - Labs CBC & Chem 7: 08/06/22 06:43 08/06/22 06:43 Labs: Abnormal Lab Results - Last 24 Hours (Table) 08/05/22 08/05/22 08/05/22 Range/Units 09:28 12:00 16:53 WBC (3.8-10.6) k/uL Plt Count (150-450) k/uL Neutrophils # (1.3-7.7) k/uL Chloride (98-107) mmol/L Glucose (74-99) mg/dL POC Glucose (mg/dL) 163 H 258 H (70-110) mg/dL Hemoglobin A1c 11.5 H (0.0-6.0) % Total Protein (6.3-8.2) g/dL 08/05/22 08/06/22 08/06/22 Range/Units 19:55 05:28 06:43 WBC 13.9 H (3.8-10.6) k/uL Plt Count 137 L (150-450) k/uL Neutrophils # 9.5 H (1.3-7.7) k/uL Chloride (98-107) mmol/L Glucose (74-99) mg/dL POC Glucose (mg/dL) 252 H 135 H (70-110) mg/dL Hemoglobin A1c (0.0-6.0) % Total Protein (6.3-8.2) g/dL 08/06/22 Range/Units 06:43 WBC (3.8-10.6) k/uL Plt Count (150-450) k/uL Neutrophils # (1.3-7.7) k/uL Chloride 109 H (98-107) mmol/L Glucose 134 H (74-99) mg/dL POC Glucose (mg/dL) (70-110) mg/dL Hemoglobin A1c (0.0-6.0) % Total Protein 6.1 L (6.3-8.2) g/dL Microbiology - Last 24 Hours (Table) 08/02/22 18:33 Blood Culture - Preliminary Blood 08/02/22 18:33 Blood Culture - Preliminary Blood Assessment and Plan Assessment: 1. Acute kidney injury mostly prerenal secondary to hypovolemia from severe hyperglycemia. Creatinine 2.45 on admission is 0.8 today. Creatinine 0.9 in September 2016. No proteinuria on UA. 2. DKA maintained on IV fluids and insulin drip. 3. Hyperkalemia secondary to hyperglycemia and acidosis. 4. Anion gap metabolic acidosis secondary to DKA. Improved. 5. Hypernatremia from lack of oral water intake. Resolved. 6. Benign hypertension. Controlled. Plan: Continue off of IV fluids. Continue to encourage increase oral intake.
--- NOTE | 2022-08-06 10:59 | P.PN ---
Subjective Progress Note Date: 08/06/22 I am seeing the patient for the first time during this admission. Please refer to Dr. Arenas's note for further details. 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 He has uncontrolled DM and HbA1c is 12.0 He stated he was taking only ASA at home. He was smoking cigarettes. He feels drastically better currently and denies any new neurological issues. Objective - Vital Signs Vital signs: Vital Signs Temp 98.2 F 08/06/22 09:07 Pulse 95 08/06/22 09:07 Resp 16 08/06/22 09:07 BP 148/81 08/06/22 09:07 Pulse Ox 99 08/06/22 09:07 FiO2 21 08/06/22 07:48 Intake & Output 08/05/22 08/06/22 08/06/22 18:59 06:59 18:59 Intake Total 518 10 118 Balance 518 10 118 Intake: IV 40 10 Invasive Line 2 20 10 Invasive Line 3 20 Oral [id number] Other: Voiding Method Toilet Toilet - Exam GENERAL: The patient is lying in bed and is not in acute distress. NEUROLOGICAL: Higher mental function: The patient is awake, alert, oriented to self, place and time. Patient is following commands. No aphasia and no neglect. Cranial nerves: The pupils are round, equal and reactive to light. Visual mustafa are full to confrontation throughout. Extraocular movement is intact no nystagmus is noted. Facial sensation is normal to touch throughout. The facial strength is normal throughout. No dysarthria is noted. Shoulder shrug is normal bilaterally. Motor: The strength is 5 over 5 throughout. Normal tone and bulk. Cerebellum: Normal finger to nose heel to chin bilaterally. Sensation: Sensation is normal to touch throughout. - Labs CBC & Chem 7: 08/06/22 06:43 08/06/22 06:43 Labs: Abnormal Lab Results - Last 24 Hours (Table) 08/05/22 08/05/22 08/05/22 Range/Units 09:28 12:00 16:53 WBC (3.8-10.6) k/uL Plt Count (150-450) k/uL Neutrophils # (1.3-7.7) k/uL Chloride (98-107) mmol/L Glucose (74-99) mg/dL POC Glucose (mg/dL) 163 H 258 H (70-110) mg/dL Hemoglobin A1c 11.5 H (0.0-6.0) % Total Protein (6.3-8.2) g/dL 08/05/22 08/06/22 08/06/22 Range/Units 19:55 05:28 06:43 WBC 13.9 H (3.8-10.6) k/uL Plt Count 137 L (150-450) k/uL Neutrophils # 9.5 H (1.3-7.7) k/uL Chloride (98-107) mmol/L Glucose (74-99) mg/dL POC Glucose (mg/dL) 252 H 135 H (70-110) mg/dL Hemoglobin A1c (0.0-6.0) % Total Protein (6.3-8.2) g/dL 08/06/22 Range/Units 06:43 WBC (3.8-10.6) k/uL Plt Count (150-450) k/uL Neutrophils # (1.3-7.7) k/uL Chloride 109 H (98-107) mmol/L Glucose 134 H (74-99) mg/dL POC Glucose (mg/dL) (70-110) mg/dL Hemoglobin A1c (0.0-6.0) % Total Protein 6.1 L (6.3-8.2) g/dL Microbiology - Last 24 Hours (Table) 08/02/22 18:33 Blood Culture - Preliminary Blood 08/02/22 18:33 Blood Culture - Preliminary Blood Assessment and Plan Assessment: 1) Generalized weakness, slurring, probable multifactorial. MRI of the brain reveals an acute infarct in the right cerebellar hemisphere Patient has severe DKA which likely is the cause of generalized weakness. The patient's generalized weakness has resolved at this time. He does continue to have mild right sided weakness consistent with his previous stroke. Likely, the presenting symptoms are secondary to toxic, metabolic, infectious etiology, As well as a new acute right cerebellar infarction 2) New onset diabetes, presenting with DKA 3)Probable thrush 4) History of CVA 07/03/2010 with residual, mild right-sided weakness 5) Tobacco use 6) Hypertension 7) Renal insufficiency, moderate. Plan: Dual antiplatelet therapy (ASA 81mg (was taking home) and Plavix 75 mg daily) for 21 days and after that stop ASA but continue Plavix indefidently. Is on Lipitor 10mg daily. Tobacco cessation is recommended and patient was counseled on it. Control of diabetes-Family questions assistance with diabetic diet. Dietitian consultation has been ordered Patient to follow-up with neurologist as outpatient within 1-2 weeks. Otherwise no additional neurological work-up. Time with Patient: Less than 30
[2022-08-06 11:54] LABS: Glucose,Whole Blood 157 mg/dL (70-110)
[2022-08-06] MEDS: METOPROLOL TARTRATE 12.5 MG TAB PO SCH ×2 (12:13→20:23)
[2022-08-06 13:13] VITALS: BMI 31.2
--- NOTE | 2022-08-06 13:43 | P.PN ---
Subjective Progress Note Date: 08/06/22 Principal diagnosis: This is a 61-year-old male with medical history significant for stroke about 2010 per family he has right sided weakness and slurred speech from the prior stroke, hypertension, enlarged prostate. Patient presented to the on 08/01 with complaints of cough sinus congestion. He was sent home with azithromycin. Labs were not taken. Patient presents back to the emergency room with complaints of weakness and confusion. Most of the medical history is taken from patients son Isa over the phone. Family was concerned that patients speech pattern was worse than usual and his mentation was worsening. He was brought back to the hospital for further evaluation. Patient does live by himself, he is a current smoker, family denies history of alcohol or illicit substance use. Initial work up reveals negative chest xray unchanged. Patient found to have a blood glucose of 1357, lactic acid level of 3.8, leukocytosis of 23.4. There is acute kidney injury with creatinine of 3.45. Alk phos is elevated at 153. Patient is acetone positive and urinalysis is positive for ketones. Covid/influenza/RSV are all negative. Patient was started on insulin gtt per the DKA protocol and given 2 Liter fluid bolus. He is admitted to the intensive care unit. Nephrology and neurology consultation is requested. Imaging Science Professor is following. 08/04. Patient seen and examined .labs include a white count 22.2, hemoglobin 13.6, hematocrit 44, and platelet count 155,000. Only 144, potassium 4.6, chlorides 112, CO2 26, anion gap 6, BUN 30, and creatinine 1.19. 08/05. Patient seen and examined. Vital signs this morning are temperature 97.8, heart rate 106, respirations 16, blood pressure 144/86. Blood sugars are better controlled compared to yesterday 08/06. Patient seen and examined. States he feels better compared to yesterday. Blood sugars are better controlled REVIEW OF SYSTEMS: CONSTITUTIONAL: No fever, no malaise,. CARDIOVASCULAR: No chest pain, no palpitations, no syncope. PULMONARY: No shortness of breath, no cough, GASTROINTESTINAL: No diarrhea, no nausea, no vomiting, no abdominal pain. NEUROLOGICAL: No headaches, no weakness, PHYSICAL EXAMINATION: GENERAL: The patient is alert and oriented x3, not in any acute distress. Well developed, well nourished. HEENT: Pupils are round and equally reacting to light. EOMI. No scleral icterus. No conjunctival pallor. Normocephalic, atraumatic. No pharyngeal erythema. No thyromegaly. CARDIOVASCULAR: S1 and S2 present. No murmurs, rubs, or gallops. PULMONARY: Chest is clear to auscultation, no wheezing or crackles. ABDOMEN: Soft, nontender, nondistended, normoactive bowel sounds. No palpable organomegaly. MUSCULOSKELETAL: No joint swelling or deformity. EXTREMITIES: No cyanosis, clubbing, or pedal edema. NEUROLOGICAL: Gross neurological examination did not reveal any focal deficits. SKIN: No rashes. Assessment and plan Altered mental status from acute metabolic encephalopathy from the hyperglycemia Acute CVA Hyperosmolar hyperglycemia and new onset diabetes mellitus blood glucose over 1300 on admission Anion gap metabolic acidosis Lactic acidosis and leukocytosis from dehydration Acute kidney injury Hyperkalemia from the MADALYN Oral thrush Acute sinusitis History of hypertension currently normotensive holding ROBBIE inhibitor secondary to the hyperkalema and MADALYN History of stroke with right sided weakness and slurred speech per family Chronic and ongoing nicotine use Benign prostatic hyperplasia Obesity Plan; Monitor vital signs Monitor CBC Monitor CMP Continue telemetry monitoring Dual antiplatelet therapy (ASA 81mg (was taking home) and Plavix 75 mg daily) for 21 days and after that stop ASA but continue Plavix indefidently. Monitor blood sugar levels Continue levemir and novolog. CT head shows remote ischemia involving the white matter within the left parietal lobe, no acute hemorrhage or midline shift Ultrasound of carotids show mild atherosclerotic plaque in the carotid bulbs and less than 50% stenosis of the regions of the bilateral internal carotid arteries MRI brain done showed acute/subacute right cerebral hemisphere CVA. More remote appearing left dubose radiata CVA MRA negative for any basilar artery thrombus Echo done showed normal left medical systolic function, showed mild tricuspid regurg with normal RV Supportive care for the sinus congestion patient is offered claritin and flonase. Follow-up on neurology recommendations Objective - Vital Signs Vital signs: Vital Signs Temp 98.2 F 08/06/22 09:07 Pulse 101 H 08/06/22 12:12 Resp 16 08/06/22 12:12 BP 156/83 08/06/22 12:12 Pulse Ox 100 08/06/22 12:12 FiO2 21 08/06/22 07:48 Intake & Output 08/05/22 08/06/22 08/06/22 18:59 06:59 18:59 Intake Total 518 10 236 Balance 518 10 236 Weight 93.2 kg Intake: IV 40 10 Invasive Line 2 20 10 Invasive Line 3 20 Oral [id number] Other: Voiding Method Toilet Toilet - Labs CBC & Chem 7: 08/06/22 06:43 08/06/22 06:43 Labs: Abnormal Lab Results - Last 24 Hours (Table) 08/05/22 08/05/22 08/05/22 Range/Units 09:28 16:53 19:55 WBC (3.8-10.6) k/uL Plt Count (150-450) k/uL Neutrophils # (1.3-7.7) k/uL Chloride (98-107) mmol/L Glucose (74-99) mg/dL POC Glucose (mg/dL) 258 H 252 H (70-110) mg/dL Hemoglobin A1c 11.5 H (0.0-6.0) % Total Protein (6.3-8.2) g/dL 08/06/22 08/06/22 08/06/22 Range/Units 05:28 06:43 06:43 WBC 13.9 H (3.8-10.6) k/uL Plt Count 137 L (150-450) k/uL Neutrophils # 9.5 H (1.3-7.7) k/uL Chloride 109 H (98-107) mmol/L Glucose 134 H (74-99) mg/dL POC Glucose (mg/dL) 135 H (70-110) mg/dL Hemoglobin A1c (0.0-6.0) % Total Protein 6.1 L (6.3-8.2) g/dL 08/06/22 Range/Units 11:39 WBC (3.8-10.6) k/uL Plt Count (150-450) k/uL Neutrophils # (1.3-7.7) k/uL Chloride (98-107) mmol/L Glucose (74-99) mg/dL POC Glucose (mg/dL) 157 H (70-110) mg/dL Hemoglobin A1c (0.0-6.0) % Total Protein (6.3-8.2) g/dL Microbiology - Last 24 Hours (Table) 08/02/22 18:33 Blood Culture - Preliminary Blood 08/02/22 18:33 Blood Culture - Preliminary Blood
[2022-08-06 16:17] LABS: Glucose,Whole Blood 137 mg/dL (70-110)
[2022-08-06 19:57] LABS: Glucose,Whole Blood 133 mg/dL (70-110)
[2022-08-06] MEDS: LATANOPROST 0.005% OPHTH DROPS 2.5 ML BTL BOTH EYES SCH (20:24)
[2022-08-06] MEDS: ACETAMINOPHEN TAB 325 MG TAB PO PRN (20:58)
[2022-08-07 05:55] LABS: Glucose,Whole Blood 96 mg/dL (70-110)
[2022-08-07] MEDS: INSULIN DETEMIR (LEVEMIR) 100 UNIT/ML SYR SQ SCH (06:32)
[2022-08-07] MEDS: INSULIN ASPART (NovoLOG) 100 UNIT/ML VIAL SQ SCH ×4 (06:33→12:53)
[2022-08-07] MEDS: ACETAMINOPHEN TAB 325 MG TAB PO PRN (07:03)
[2022-08-07 08:13] VITALS: BP 138/78; PULSE 89; TEMP 98.1
[2022-08-07] MEDS: CLOPIDOGREL 75 MG TAB PO SCH (08:20)
[2022-08-07] MEDS: TAMSULOSIN 0.4 MG CAP.ER.24H PO SCH (08:20)
[2022-08-07] MEDS: ATORVASTATIN 10 MG TAB PO SCH (08:20)
[2022-08-07] MEDS: FINASTERIDE 5 MG TAB PO SCH (08:20)
[2022-08-07] MEDS: ASPIRIN 81 MG PO SCH (08:20)
[2022-08-07] MEDS: METOPROLOL TARTRATE 12.5 MG TAB PO SCH (08:20)
[2022-08-07] MEDS: LORATADINE 10 MG TAB PO SCH (08:21)
[2022-08-07] MEDS: NYSTATIN 100,000 UNIT/ML SUSP 500,000 UNIT/5 ML CUP PO SCH (08:21)
[2022-08-07] MEDS: NICOTINE 14MG/24HR PATCH TRANSDERM SCH (08:21)
[2022-08-07] MEDS: HEPARIN SODIUM,PORCINE/PF 5,000 UNIT/0.5 ML SYRINGE SQ SCH ×2 (08:21→08:31)
[2022-08-07] MEDS ORDERED: PANTOPRAZOLE 40 MG TABLET PO SCH (09:00)
[2022-08-07 11:31] LABS: Glucose,Whole Blood 88 mg/dL (70-110)
--- NOTE | 2022-08-07 11:59 | P.DS ---
Providers Date of admission: 08/02/22 20:00 Expected date of discharge: 08/07/22 Attending physician: Lesvia Mendoza Consults: 08/02/22 22:33 Consult Physician Routine Consulting Provider: Wesley Jurado Consult Reason/Comments: ICU Management, DKA, ARF Do you want consulting provider notified?: Already Contacted 08/03/22 09:31 Consult Physician Routine Consulting Provider: Vic Bee Consult Reason/Comments: MADALYN Do you want consulting provider notified?: Yes 08/03/22 14:55 Consult Physician Routine Consulting Provider: Ezra Brandon Consult Reason/Comments: AMS, slurred speech, stroke Do you want consulting provider notified?: Yes Primary care physician: David Dempsey Hospital Course: Discharge diagnoses; Altered mental status from acute metabolic encephalopathy from the hyperglycemia Acute CVA Hyperosmolar hyperglycemia and new onset diabetes mellitus blood glucose over 1300 on admission Anion gap metabolic acidosis Lactic acidosis and leukocytosis from dehydration Acute kidney injury Hyperkalemia from the MADALYN Oral thrush Acute sinusitis History of hypertension currently normotensive holding ROBBIE inhibitor secondary to the hyperkalema and MADALYN History of stroke with right sided weakness and slurred speech per family Chronic and ongoing nicotine use Benign prostatic hyperplasia Obesity Hospital course; This is a 61-year-old male with medical history significant for stroke about 2010 per family he has right sided weakness and slurred speech from the prior stroke, hypertension, enlarged prostate. Patient presented to the on 08/01 with complaints of cough sinus congestion. He was sent home with azithromycin. Labs were not taken. Patient presents back to the emergency room with complaints of weakness and confusion. Most of the medical history is taken from patients son Isa over the phone. Family was concerned that patients speech pattern was worse than usual and his mentation was worsening. He was brought back to the hospital for further evaluation. Patient does live by himself, he is a current smoker, family denies history of alcohol or illicit substance use. Initial work up reveals negative chest xray unchanged. Patient found to have a blood glucose of 1357, lactic acid level of 3.8, leukocytosis of 23.4. There is acute kidney injury with creatinine of 3.45. Alk phos is elevated at 153. Patient is acetone positive and urinalysis is positive for ketones. Covid/influenza/RSV are all negative. Patient was started on insulin gtt per the DKA protocol and given 2 Liter fluid bolus. He is admitted to the intensive care unit. Nephrology and neurology consultation is requested. [employer] is following. 08/04. Patient seen and examined .labs include a white count 22.2, hemoglobin 13.6, hematocrit 44, and platelet count 155,000. Only 144, potassium 4.6, chlorides 112, CO2 26, anion gap 6, BUN 30, and creatinine 1.19. 08/05. Patient seen and examined. Vital signs this morning are temperature 97.8, heart rate 106, respirations 16, blood pressure 144/86. Blood sugars are better controlled compared to yesterday 08/06. Patient seen and examined. States he feels better compared to yesterday. Blood sugars are better controlled 08/07. Patient seen and examined. Adjusted dose of Humalog to 5 units with meals and Lantus to 15 units twice a day.neurology recommended aspirin and Plavix for 21 days followed by Plavix alone PHYSICAL EXAMINATION: GENERAL: The patient is alert and oriented x3, not in any acute distress. Well developed, well nourished. HEENT: Pupils are round and equally reacting to light. EOMI. No scleral icterus. No conjunctival pallor. Normocephalic, atraumatic. No pharyngeal erythema. No thyromegaly. CARDIOVASCULAR: S1 and S2 present. No murmurs, rubs, or gallops. PULMONARY: Chest is clear to auscultation, no wheezing or crackles. ABDOMEN: Soft, nontender, nondistended, normoactive bowel sounds. No palpable organomegaly. MUSCULOSKELETAL: No joint swelling or deformity. EXTREMITIES: No cyanosis, clubbing, or pedal edema. NEUROLOGICAL: Gross neurological examination did not reveal any focal deficits. SKIN: No rashes. Patient Condition at Discharge: Good Plan - Discharge Summary New Discharge Prescriptions: New Metoprolol Tartrate [Lopressor] 12.5 mg PO BID #60 tab INSULIN ASPART (NovoLOG) [NovoLOG (formulary)] 5 unit SQ AC-TID #1 each Clopidogrel [Plavix] 75 mg PO DAILY #30 tab Aspirin 81 mg PO DAILY #21 tab Insulin Detemir (Levemir) [Levemir] 15 unit SQ BID@0700,2100 #1 each Continue Tamsulosin HCl [Flomax] 0.4 mg PO DAILY Simvastatin [Zocor] 20 mg PO DAILY amLODIPine [Norvasc] 10 mg PO DAILY Finasteride [Proscar] 5 mg PO DAILY lisinopriL [Zestril] 20 mg PO DAILY Latanoprost [Latanoprost 0.005%] 1 drop BOTH EYES HS Discontinued Azithromycin [Zithromax Z Pack] See Taper PO DAILY Ibuprofen [Motrin] 800 mg PO BID PRN PRN Reason: Pain Or Fever > 100.5 Discharge Medication List Finasteride [Proscar] 5 mg PO DAILY 08/01/22 [History] Latanoprost [Latanoprost 0.005%] 1 drop BOTH EYES HS 08/01/22 [History] Simvastatin [Zocor] 20 mg PO DAILY 08/01/22 [History] Tamsulosin HCl [Flomax] 0.4 mg PO DAILY 08/01/22 [History] amLODIPine [Norvasc] 10 mg PO DAILY 08/01/22 [History] lisinopriL [Zestril] 20 mg PO DAILY 08/01/22 [History] Aspirin 81 mg PO DAILY #21 tab 08/07/22 [Rx] Clopidogrel [Plavix] 75 mg PO DAILY #30 tab 08/07/22 [Rx] INSULIN ASPART (NovoLOG) [NovoLOG (formulary)] 5 unit SQ AC-TID #1 each 08/07/22 [Rx] Insulin Detemir (Levemir) [Levemir] 15 unit SQ BID@0700,2100 #1 each 08/07/22 [Rx] Metoprolol Tartrate [Lopressor] 12.5 mg PO BID #60 tab 08/07/22 [Rx] Follow up Appointment(s)/Referral(s): David Dempsey III, MD [Primary Care Provider] - 1-2 days
== END 2022-08-07 14:06 | disposition home or self-care (01) | DRG 637 ==
LOC: EC 18:11 → 3SCARD 20:00 → 2SICU 23:02 → 3SCARD 08-03 23:09
PROVIDERS: ADMIT Hospitalist; ATTEND Hospitalist
DX: E11.00 Type 2 diabetes mellitus with hyperosmolarity without nonketotic hyperglycemic-hyperosmolar coma (NKHHC) (principal); G93.41 Metabolic encephalopathy; I63.541 Cerebral infarction due to unspecified occlusion or stenosis of right cerebellar artery; N17.9 Acute kidney failure, unspecified; B37.0 Candidal stomatitis; E87.0 Hyperosmolality and hypernatremia; I69.351 Hemiplegia and hemiparesis following cerebral infarction affecting right dominant side; E11.10 Type 2 diabetes mellitus with ketoacidosis without coma; N40.0 Benign prostatic hyperplasia without lower urinary tract symptoms; D72.829 Elevated white blood cell count, unspecified; E66.9 Obesity, unspecified; Z68.31 Body mass index [BMI] 31.0-31.9, adult; E87.5 Hyperkalemia; J01.90 Acute sinusitis, unspecified; I10 Essential (primary) hypertension; F17.210 Nicotine dependence, cigarettes, uncomplicated; E86.1 Hypovolemia; E86.0 Dehydration; Z20.822 Contact with and (suspected) exposure to COVID-19; I69.322 Dysarthria following cerebral infarction; Z86.14 Personal history of Methicillin resistant Staphylococcus aureus infection; Z79.899 Other long term (current) drug therapy; Z79.02 Long term (current) use of antithrombotics/antiplatelets; Z88.0 Allergy status to penicillin; Z71.6 Tobacco abuse counseling
CPT/HCPCS: 36415; 70450; 70544; 70551; 71045; 76770; 80048; 80051; 80053; 80061; 80306; 81003; 82009; 82565; 82803; 82947; 83036; 83605; 83735; 84100; 84145; 84295; 84443; 84484; 84520; 85025; 85610; 85730; 87636; 93005; 93306; 93880; 94760; 96360; 96361; 99291

== ENCOUNTER → 2022-09-21 | Outpatient (CLI) | payer MEDICARE, OTHER ==
[2022-09-21 21:19] LABS: ALT 13 U/L (10-49); AST 13 U/L (14-35); Albumin 3.8 d/dL (3.8-4.9); Albumin/Globulin Ratio 1.81 Ratio (1.60-3.17); Alkaline Phosphatase 81 U/L (41-126); Calcium 9.4 mg/dL (8.7-10.3); Carbon Dioxide 23.3 mmol/L (21.6-31.8); Chloride 107 mmol/L (96-109); Globulin 2.1 d/dL (1.6-3.3); Glucose 66 mg/dL (70-110); Potassium 4.4 mmol/L (3.5-5.5); Sodium 143 mmol/L (135-145); Total Bilirubin <0.2 mg/dL (0.3-1.2); Total Protein 5.9 d/dL (6.2-8.2)
[2022-09-21 21:35] LABS: Basophils # (A) 0.07 X 10*3/uL (0.00-0.10); Basophils % (A) 0.5 %; Eosinophils # (A) 0.36 X 10*3/uL (0.04-0.35); Eosinophils % (A) 2.7 %; HCT 37.9 % (39.6-50.0); HGB 12.2 d/dL (12.0-15.0); Lymphocytes # (A) 3.16 X 10*3/uL (0.90-5.00); Lymphocytes % (A) 23.4 %; MCH 30.7 pg (27.0-32.0); MCHC 32.2 d/dL (32.0-37.0); MCV 95.2 FL (80.0-97.0); Monocytes # (A) 1.41 X 10*3/uL (0.20-1.00); Monocytes % (A) 10.4 %; NRBC Per 100 WBC 0 X 10*3/uL (0.00-0.01); Neutrophils # (A) 8.48 X 10*3/uL (1.80-7.70); Neutrophils % (A) 62.6 %; Platelet Count 276 X 10*3/uL (140-440); RBC 3.98 X 10*6/uL (4.40-5.60); RDW 14.5 % (11.5-14.5); WBC 13.53 X 10*3/uL (4.50-10.00)
== END | disposition home or self-care (01) ==
LOC: LABWHC1 13:52
PROVIDERS: ATTEND Family Medicine
DX: E11.65 Type 2 diabetes mellitus with hyperglycemia (principal); D72.828 Other elevated white blood cell count; I10 Essential (primary) hypertension
CPT/HCPCS: 36415; 80053; 83036; 85025

== ENCOUNTER → 2022-12-06 | Outpatient (CLI) | payer MEDICARE, OTHER ==
--- NOTE | 2022-12-06 21:15 | CTL ---
EXAMINATION TYPE: CT Low Dose Lung DATE OF EXAM ORDERED: 12/06/2022 HISTORY: . Lung cancer screening CT DLP: 92.[address] CTDI: 2.6 mGy Automated exposure control for dose reduction was used. SCREENING VISIT: Initial COMPARISON: None TECHNIQUE: Low dose computed tomography scan was performed through the chest at 1 mm thick sections a nd reconstructed images in the coronal plane at [address] DIAGNOSTIC QUALITY: Limited, but interpretable FINDINGS: LUNG NODULES: None. Small low density peripheral areas in the posterior right lung base. Series 4 image 206. Differentia l could include atelectasis or nodule. Follow-up lungs. LUNGS: COPD: Severity: None Fibrosis: Severity: None Lymph nodes: None Other findings: None RIGHT PLEURAL SPACE: Effusion: None Calcification: None Thickening: None Pneumothorax: None LEFT PLEURAL SPACE: Effusion: None Calcification: None Thickening: None Pneumothorax: None HEART: Heart Size: Normal Coronary calcification: Moderate Pericardial effusion: None OTHER FINDINGS: Upper abdomen: Normal Bony thorax: Normal Supraclavicular region: Normal Other: Ascending thoracic aorta at the level the main pulmonary artery measures 4.0 cm. The main pul monary artery at the bifurcation measures 2.8 cm. IMPRESSION: Small posterior density may be atelectasis. Short-term follow-up in 6 months is recommend ed. FOLLOW UP CT CHEST RECOMMENDATION: Follow-up CT chest in [address] LUNG RAD: Lung-Rad 3 Probably Benign
== END | disposition home or self-care (01) ==
LOC: RADCTMAIN 09:34
PROVIDERS: ATTEND Internal Medicine Hematology & Oncology
DX: Z12.2 Encounter for screening for malignant neoplasm of respiratory organs (principal); F17.210 Nicotine dependence, cigarettes, uncomplicated; J98.4 Other disorders of lung
CPT/HCPCS: 71271

== ENCOUNTER → 2023-05-16 | Outpatient (CLI) | payer MEDICARE, OTHER ==
--- NOTE | 2023-05-16 10:53 | CT ---
EXAMINATION TYPE: CT chest wo con CT DLP: 819 mGycm, Automated exposure control for dose reduction was used. DATE OF EXAM: 05/16/2023 10:04 AM COMPARISON: 12/06/2022. CLINICAL INDICATION:Male, 62 years old with history of Z87.891 hx tobacco use; , smoker TECHNIQUE: Multiple axial images were obtained through the chest. Sagittal and coronal reformats were created for review. Contrast used: mL of (None if empty) Oral contrast used: (None if empty) FINDINGS: LUNGS/ PLEURA: Calcified granuloma in the right middle lobe. No suspicious or enlarging pulmonary nod ules. No focal consolidation, pneumothorax or pleural effusion. AIRWAY: Patent and unremarkable. HEART: Size within normal limits. Calcifications are seen throughout the coronary arteries. MEDIASTINUM: No gross evidence of adenopathy. Partially calcified right pulmonary hilum lymph nodes. VASCULATURE: No aortic aneurysm. MUSCULOSKELETAL: No acute osseous abnormalities SOFT TISSUES/LYMPH NODES: Unremarkable. LOWER NECK: No significant findings. UPPER ABDOMEN: No significant findings. IMPRESSION: Area on prior CT on 12/06/2022 in the right posterior lung has resolved. No suspicious pulmonary nodule s. Moderate to severe coronary artery atherosclerosis. Follow up recommendations for incidental pulmonary nodules, if there are any, are per [employer] or [employer]. [email or web address].org/[email or web address]?lang=us
== END | disposition home or self-care (01) ==
LOC: RADCTMAIN 09:32
PROVIDERS: ATTEND Internal Medicine Hematology & Oncology
DX: I25.10 Atherosclerotic heart disease of native coronary artery without angina pectoris (principal); Z87.891 Personal history of nicotine dependence
CPT/HCPCS: 71250

== ENCOUNTER → 2024-05-25 | Outpatient (CLI) | payer MEDICARE, OTHER ==
--- NOTE | 2024-05-25 14:46 | CTL ---
EXAMINATION TYPE: CT Low Dose Lung DATE OF EXAM ORDERED: 05/25/2024 COMPARISON: CT chest 05/16/2023, CT Low Dose Lung 12/06/2022 CLINICAL INDICATION: Male, 63 years old with history of Z12.2 ENCNTR SCREEN FOR MALIGNANT NEOPLASM OF RESP; PHH, personal tobacco use, Lung cancer screening, History of Smoking/tobacco use. TECHNIQUE: Low dose computed tomography scan was performed through the chest at 1 mm thick sections a nd reconstructed images in multiple planes at 1 mm and [address] DLP: [address] CTDI: 2.4 mGy Automated exposure control for dose reduction was used. CT DIAGNOSTIC QUALITY: Satisfactory FINDINGS: Nodules: Stable anterior lingular 2.3 mm calcified granuloma. No new or enlarging pulmonary nodules. LUNGS: COPD: Severity: None Fibrosis: Severity: None Lymph nodes: None Other findings: Bilateral lower lobe dependent subsegmental atelectasis. RIGHT PLEURAL SPACE: Effusion: None Calcification: None Thickening: None Pneumothorax: None LEFT PLEURAL SPACE: Effusion: None Calcification: None Thickening: None Pneumothorax: None HEART: Heart Size: Normal Coronary Calcification: Moderate Pericardial Effusion: Trace OTHER FINDINGS: Upper abdomen: Small hiatal hernia. Bony thorax: Mild multilevel degenerative disc disease of the thoracic spine. Supraclavicular region: Prominent thyroid gland. Other: Prominent bilateral gynecomastia. IMPRESSION: Stable anterior lingular 2.3 mm calcified granuloma. No new or enlarging pulmonary nodule s. CT LUNG RAD AND CT CHEST RECOMMENDATION: Lung-Rad 2 Benign Appearance or Behavior: Continue annual sc reening with LDCT in 12 months. S Modifier (other clinically significant findings): None [facility], , 05/25/2024 2:43 PM
== END | disposition home or self-care (01) ==
LOC: RADCTMAIN 13:43
PROVIDERS: ATTEND Internal Medicine Hematology & Oncology
DX: Z12.2 Encounter for screening for malignant neoplasm of respiratory organs (principal); J84.10 Pulmonary fibrosis, unspecified; F17.210 Nicotine dependence, cigarettes, uncomplicated
CPT/HCPCS: 71271

== ENCOUNTER 2024-06-20 12:30 | Inpatient (IN) | payer MEDICARE, OTHER ==
--- NOTE | 2024-06-20 13:20 | ED ---
Chest Pain HPI - General Source: patient, RN notes reviewed Mode of arrival: ambulatory Limitations: no limitations <Bernadette Monteiro - Last Filed: 06/20/24 13:19> <Dominick Swan - Last Filed: 06/20/24 17:32> - General Chief Complaint: Chest Pain Stated Complaint: Chest pain Time Seen by Provider: 06/20/24 13:20 - History of Present Illness Initial Comments: Quick note: 63-year-old male presented to the ER for evaluation of chest discomfort. Patient states this been going on for the past month worse over the past couple of days. He admits to shortness of breath as well. No dizziness, lightheadedness, nausea, vomiting, or peripheral edema. Patient is a diabetic. (Bernadette Monteiro) This is a 63-year-old male who presents to the emergency department the past medical history significant for having had a stroke has diabetes high cholesterol and smokes. Patient states he has been having intermittent chest pain for last few days and it peers to happen when he exerts himself at all and he states is in the center of his chest that last approximately 10 minutes and eventually subsides. Patient states he is also short of breath when this occurs. Patient denies any diaphoretic episode or nausea. Patient states that he has no palpitations. Patient denies any fever chills or cough. Patient states he has no chest pain currently he is at his baseline. Patient was in the waiting room for approximately 2 hours prior to him getting a bed in the emergency department. (Dominick Swan) - Related Data Home Medications Medication Instructions Recorded Confirmed Finasteride [Proscar] 5 mg PO DAILY 08/01/22 06/20/24 Latanoprost [Latanoprost 0.005%] 1 drop BOTH EYES HS 08/01/22 06/20/24 Simvastatin [Zocor] 20 mg PO HS 08/01/22 06/20/24 Tamsulosin HCl [Flomax] 0.4 mg PO DAILY 08/01/22 06/20/24 amLODIPine [Norvasc] 10 mg PO DAILY 08/01/22 06/20/24 lisinopriL [Zestril] 20 mg PO DAILY 08/01/22 06/20/24 Metoprolol Tartrate [Lopressor] 12.5 mg PO BID 06/20/24 06/20/24 Semaglutide [Ozempic] 0.5 mg SQ MARTÍNEZ 06/20/24 06/20/24 Sildenafil Citrate 100 mg PO DAILY PRN 06/20/24 06/20/24 Previous Rx's Medication Instructions Recorded Clopidogrel [Plavix] 75 mg PO DAILY #30 tab 08/07/22 Allergies Allergy/AdvReac Type Severity Reaction Status Date / Time Penicillins Allergy Severe Burgos on Verified 06/20/24 16:11 skin/Blisters Review of Systems ROS Other: All systems not noted in ROS Statement are negative. <Bernadette Monteiro - Last Filed: 06/20/24 13:19> ROS Other: All systems not noted in ROS Statement are negative. <Dominick Swan - Last Filed: 06/20/24 17:32> ROS Statement: Those systems with pertinent positive or pertinent negative responses have been documented in the HPI. Past Medical History Past Medical History: CVA/TIA, Hypertension History of Any Multi-Drug Resistant Organisms: MRSA, None Reported Date of last positivie culture/infection: 01/30/2013 MDRO Source:: left leg and back Past Surgical History: Tonsillectomy Past Anesthesia/Blood Transfusion Reactions: No Reported Reaction Past Psychological History: No Psychological Hx Reported Smoking Status: Current every day smoker Past Alcohol Use History: None Reported Past Drug Use History: None Reported - Past Family History Father Family Medical History: Cancer Mother Family Medical History: Cancer Sister(s) Family Medical History: Cancer <Bernadette Monteiro - Last Filed: 06/20/24 13:19> General Exam Limitations: no limitations <Bernadette Monteiro - Last Filed: 06/20/24 13:19> <Dominick Swan - Last Filed: 06/20/24 17:32> - General Exam Comments Initial Comments: Visual Physical Exam Vital signs reviewed General: Well-appearing, nontoxic, no acute distress. Head: Normocephalic, atraumatic Eyes: PERRLA, EOMI ENT: Airway patent Chest: Nonlabored breathing Skin: No visual rash, normal skin tone Neuro: Alert and oriented 3 Musculoskeletal: No gross abnormalities (Bernadette Monteiro) GENERAL: Patient is well-developed and well-nourished. Patient is nontoxic and well- hydrated and is in no acute distress. ENT: Neck is soft and supple. No significant lymphadenopathy is noted. Oropharynx is clear. Moist mucous membranes. Neck has full range of motion without eliciting any pain. EYES: The sclera were anicteric and conjunctiva were pink and moist. Extraocular movements were intact and pupils were equal round and reactive to light. Eyelids were unremarkable. PULMONARY: Unlabored respirations. Good breath sounds bilaterally. No audible rales rhonchi or wheezing was noted. CARDIOVASCULAR: There is a regular rate and rhythm without any murmurs gallops or rubs. ABDOMEN: Soft and nontender with normal bowel sounds. SKIN: Skin is clear with no lesions or rashes and otherwise unremarkable. NEUROLOGIC: Patient is alert and oriented x 3 cranial nerves II through XII are grossly intact. MUSCULOSKELETAL: Normal extremities with adequate strength and full range of motion. LYMPHATICS: No significant lymphadenopathy is noted PSYCHIATRIC: Normal psychiatric evaluation. (Dominick Swan) Course Vital Signs 06/20/24 12:34 Temperature 97.9 F Pulse Rate 85 Respiratory 17 Rate Blood Pressure 151/96 O2 Sat by Pulse 98 Oximetry Chest Pain MDM <Bernadette Monteiro - Last Filed: 06/20/24 13:19> <Dominick Swan - Last Filed: 06/20/24 17:32> - MDM I performed the quick note portion of this chart. Electronically signed by Bernadette Monteiro PA-C (Bernadette Monteiro) EKG is interpreted by myself but EKG shows sinus rhythm at 76 bpm AL 124 QRS is 90 QT interval 349 QTc is 379. Patient's EKG shows no ST segment elevation or depression. Was pt. sent in by a medical professional or institution ([facility], [employer], urgent care, hospital, or skilled nursing...) When possible be specific @ -No Did you speak to anyone other than the patient for history (EMS, parent, family, police, friend...)? What history was obtained from this source @ -No Did you review nursing and triage notes (agree or disagree)? Why? @ -I reviewed and agree with nursing and triage notes Were old charts reviewed (outside hosp., previous admission, EMS record, old EKG, old radiological studies, urgent care reports/EKG's, skilled nursing records)? Report findings @ -No old charts were reviewed Differential Diagnosis? @ -Differential Chest Pain: Stable Angina, Unstable Angina, STEMI, NSTEMI Aortic Dissection, Pneumothorax, Musculoskeletal, Esophageal Spasm GERD, Cholecystitis, Pancreatitis, Zoster, this is not meant to be an all-inclusive list. EKG interpreted by me (3pts min.). @ -As above X-rays interpreted by me (1pt min.). @ -Chest x-ray shows no acute dramality CT interpreted by me (1pt min.). @ -None done U/S interpreted by me (1pt. min.). @ -None done What testing was considered but not performed or refused? (CT, X-rays, U/S, labs)? Why? @ -None What meds were considered but not given or refused? Why? @ -None Did you discuss the management of the patient with other professionals (professionals i.e. , PA, [employer]ER, lab, RT, psych nurse, socially responsible investment adviser, bleacher [employer], teacher, parking regulation enforcement officer, caser shoe parts)? Give summary @ -I spoke with Dr. Anita Howard agreed to admit Was smoking cessation discussed for >3mins.? @ -No Was critical care preformed (if so, how long)? @ -35 minutes Were there social determinants of health that impacted care today? How? (Homelessness, low income, unemployed, alcoholism, drug addiction, transportation, low edu. Level, literacy, decrease access to med. care, senior living, rehab)? @ -No Was there de-escalation of care discussed even if they declined (Discuss DNR or withdrawal of care, Hospice)? DNR status @ -No What co-morbidities impacted this encounter? (DM, HTN, Smoking, COPD, CAD, Cancer, CVA, ARF, Chemo, Hep., AIDS, mental health diagnosis, sleep apnea, morbid obesity)? @ -None Was patient admitted / discharged? Hospital course, mention meds given and route, prescriptions, significant lab abnormalities, going to OR and other pertinent info. @ -Patient's troponin came back elevated I started the patient on heparin give the patient Lipitor patient will be admitted to Dr. Howard and cardiology be consulted Undiagnosed new problem with uncertain prognosis? @ -No Drug Therapy requiring intensive monitoring for toxicity (Heparin, Nitro, Insulin, Cardizem)? @ -No Were any procedures done? @ -No Diagnosis/symptom? @ -NSTEMI Acute, or Chronic, or Acute on Chronic? @ -Acute Uncomplicated (without systemic symptoms) or Complicated (systemic symptoms)? @ -Complicated Side effects of treatment? @ -No Exacerbation, Progression, or Severe Exacerbation? @ -No Poses a threat to life or bodily function? How? (Chest pain, USA, AL, pneumonia, PE, COPD, DKA, ARF, appy, cholecystitis, CVA, Diverticulitis, Homicidal, Suicidal, threat to staff... and all critical care pts) @ -Yes this could lead to an AL and endorgan dysfunction (Dominick Swan) Disposition <Bernadette Monteiro - Last Filed: 06/20/24 13:19> Time of Disposition: 17:32 <Dominick Swan - Last Filed: 06/20/24 17:32> Clinical Impression: Acute non-ST elevation myocardial infarction (NSTEMI) Disposition: ADMITTED IP TO THIS HOSP Referrals: Vito Diaz Jr, [Primary Care Provider] - 1-2 days
--- NOTE | 2024-06-20 14:12 | XR ---
EXAMINATION TYPE: XR chest 2V DATE OF EXAM: 06/20/2024 2:07 PM COMPARISON: 08/02/2022 CLINICAL INDICATION: Male, 63 years old with history of Chest Pain: Shortness of breath TECHNIQUE: XR chest 2V views of the chest are obtained. FINDINGS: Scattered senescent parenchymal changes noted. Hyperinflation compatible with COPD. No evidence for infiltrate. No evidence for atelectasis. Heart size is stable. Mediastinal structures are stable and grossly unremarkable. No evidence for hilar prominence. Degenerative changes dorsal spine. IMPRESSION: 1. No evidence for acute pulmonary disease. [facility], , 06/20/2024 2:09 PM
[2024-06-20 16:01] LABS: Basophils # (A) 0.1 k/uL (0-0.2); Basophils % (A) 0 %; Eosinophils # (A) 0.3 k/uL (0-0.7); Eosinophils % (A) 2 %; HCT 45.4 % (39.0-53.0); HGB 14.7 gm/dL (13.0-17.5); Lymphocytes % (A) 21 %; MCH 29.4 pg (25.0-35.0); MCHC 32.5 g/dL (31.0-37.0); MCV 90.6 fL (80.0-100.0); Mean Platelet Volume 7.3; Monocytes # (A) 0.9 k/uL (0-1.0); Monocytes % (A) 6 %; Neutrophils % (A) 69 %; Platelet Count 282 k/uL (150-450); RDW 13.4 % (11.5-15.5); WBC 14.4 k/uL (3.8-10.6)
[2024-06-20 16:12] LABS: Partial Thromboplastin Time 23.2 sec (22.0-30.0); Prothrombin Time 10.8 sec (10.0-12.5)
[2024-06-20 16:13] LABS: ALT 14 U/L (4-49); African American GFR (CKD) >90 (>60 ml/min/1.73 sqM); Albumin 4.3 g/dL (3.5-5.0); Anion Gap 11 mmol/L; Blood Urea Nitrogen 5 mg/dL (9-20); Calcium 9.4 mg/dL (8.4-10.2); Carbon Dioxide 22 mmol/L (22-30); Chloride 105 mmol/L (98-107); Glucose 152 mg/dL (74-99); Non-African American GFR(CKD) >90 (>60 ml/min/1.73 sqM); Sodium 138 mmol/L (137-145); Total Bilirubin 0.8 mg/dL (0.2-1.3); Total Protein 7.2 g/dL (6.3-8.2)
[2024-06-20 16:15] LABS: AST 23 U/L (17-59); Alkaline Phosphatase 99 U/L (38-126); Potassium 4.1 mmol/L (3.5-5.1)
[2024-06-20] MEDS: HEPARIN SODIUM 1,000 UN/ML (10ML VL) IV ONE (17:26)
[2024-06-20] MEDS: HEPARIN SOD,PORK IN 0.45% NACL 25,000 UNIT in 0.45% NACL 1 250ML.BAG IV SCH (17:27)
[2024-06-20] MEDS: ATORVASTATIN 80 MG TAB PO STA (17:29)
[2024-06-20] MEDS ORDERED: NITROGLYCERIN SL TABS 0.4 MG TAB SUBLINGUAL PRN (17:32)
[2024-06-20] MEDS: NICOTINE 21MG/24HR PATCH TRANSDERM SCH (19:18)
[2024-06-20] MEDS: NITROGLYCERIN OINT 1 INCH/GM PACKET TOPICAL SCH (19:19)
[2024-06-20] MEDS: METOPROLOL TARTRATE 50 MG TAB PO SCH (20:26)
[2024-06-21] MEDS: ASPIRIN 325 MG TAB PO SCH (08:52)
[2024-06-21] MEDS ORDERED: NITROGLYCERIN SL TABS 0.4 MG TAB SUBLINGUAL PRN ×2 (09:21→16:31)
[2024-06-21 09:49] LABS: Basophils # (A) 0.1 k/uL (0-0.2); Basophils % (A) 0 %; Eosinophils # (A) 0.3 k/uL (0-0.7); Eosinophils % (A) 2 %; HCT 43.4 % (39.0-53.0); HGB 14.1 gm/dL (13.0-17.5); Lymphocytes # (A) 3.2 k/uL (1.0-4.8); Lymphocytes % (A) 20 %; MCH 29.5 pg (25.0-35.0); MCHC 32.5 g/dL (31.0-37.0); MCV 90.9 fL (80.0-100.0); Mean Platelet Volume 7.3; Monocytes # (A) 0.9 k/uL (0-1.0); Monocytes % (A) 6 %; Neutrophils # (A) 11.1 k/uL (1.3-7.7); Neutrophils % (A) 70 %; Platelet Count 261 k/uL (150-450); RBC 4.78 m/uL (4.30-5.90); RDW 13.4 % (11.5-15.5)
[2024-06-21] MEDS: ATORVASTATIN 80 MG TAB PO SCH (09:53)
[2024-06-21 10:00] LABS: Partial Thromboplastin Time 38.2 sec (22.0-30.0); Prothrombin Time 10.8 sec (10.0-12.5)
[2024-06-21] MEDS: HEPARIN SOD,PORK IN 0.45% NACL 25,000 UNIT in 0.45% NACL 1 250ML.BAG IV SCH (10:16)
[2024-06-21] MEDS: HEPARIN SODIUM 1,000 UN/ML (10ML VL) IV PRN (10:19)
--- NOTE | 2024-06-21 12:39 | P.CRDCN ---
History of Present Illness Consult date: 06/21/24 History of present illness: The patient is a 63-year-old male who follows in the office with Dr. Howard. He had been reporting chest discomfort over the last several weeks and recently had a new patient appointment. He is scheduled to undergo echocardiogram later this week and stress testing within the next 2 weeks. When his chest pain and pressure worsened over the last 24 hours he presented to the emergency room. DIAGNOSTICS: Initial EKG showed sinus rhythm with nonspecific ST and T wave abnormality Repeat EKG showed T wave inversions in the precordial leads X-ray shows no acute cardiopulmonary process REVIEW OF SYSTEMS: No fever or chills. No cough or expectoration. No diaphoresis. Patient denies headache, dizziness, blurred vision, double vision. Patient denies any stomach discomfort. No nausea, vomiting. No hematochezia. No hematemesis. Denies any black stools or blood in his stools. Denies dysuria or hematuria. No muscle weakness or numbness. Positive for chest heaviness PHYSICAL EXAMINATION: This is a 63-year-old male in no apparent distress at the time of my examination. HEENT: Head is atraumatic, normocephalic. Pupils are equal, round. Sclerae anicteric. Conjunctivae are clear. Mucous membranes of the mouth are moist. Neck is supple. There is no jugular venous distention. No carotid bruit is heard. CHEST EXAMINATION: Lungs are clear to auscultation. No chest wall tenderness is noted on palpation or with deep breathing. Inspiratory wheezes bilaterally. HEART EXAMINATION: Heart regular rate and rhythm. S1, S2 heard. No murmurs, gallops or rub. ABDOMEN: Soft, nontender. Bowel sounds are heard. No organomegaly noted. EXTREMITIES: 2+ peripheral pulses with no evidence of peripheral edema and no calf tenderness noted. NEUROLOGIC EXAMINATION: Patient is awake, alert and oriented x3. FINAL ASSESSMENT AND PLAN: Chest discomfort Non-ST elevated myocardial infarction, T wave inversions in the anterior leads History of hypertension Hyperlipidemia Type 2 diabetes History of CVA PLAN: Continue heparin drip, low intensity protocol Start intensity statin Resume home doses of lisinopril, metoprolol, and Norvasc Plan proceed with coronary angiogram risks and benefits of procedure were discussed with patient in detail. I am dictating on behalf of Dr Chase Neal's history/physical and assessment/plan. Past Medical History Past Medical History: CVA/TIA, Hypertension History of Any Multi-Drug Resistant Organisms: MRSA, None Reported Date of last positivie culture/infection: 01/30/2013 MDRO Source:: left leg and back Past Surgical History: Tonsillectomy Past Anesthesia/Blood Transfusion Reactions: No Reported Reaction Past Psychological History: No Psychological Hx Reported Smoking Status: Current every day smoker Past Alcohol Use History: None Reported Past Drug Use History: None Reported - Past Family History Father Family Medical History: Cancer Mother Family Medical History: Cancer Sister(s) Family Medical History: Cancer Medications and Allergies Home Medications Medication Instructions Recorded Confirmed Type Finasteride [Proscar] 5 mg PO DAILY 08/01/22 06/20/24 History Latanoprost [Latanoprost 0.005%] 1 drop BOTH EYES HS 08/01/22 06/20/24 History Simvastatin [Zocor] 20 mg PO HS 08/01/22 06/20/24 History Tamsulosin HCl [Flomax] 0.4 mg PO DAILY 08/01/22 06/20/24 History amLODIPine [Norvasc] 10 mg PO DAILY 08/01/22 06/20/24 History lisinopriL [Zestril] 20 mg PO DAILY 08/01/22 06/20/24 History Clopidogrel [Plavix] 75 mg PO DAILY #30 tab 08/07/22 06/20/24 Rx Metoprolol Tartrate [Lopressor] 12.5 mg PO BID 06/20/24 06/20/24 History Semaglutide [Ozempic] 0.5 mg SQ MARTÍNEZ 06/20/24 06/20/24 History Sildenafil Citrate 100 mg PO DAILY PRN 06/20/24 06/20/24 History Allergies Allergy/AdvReac Type Severity Reaction Status Date / Time Penicillins Allergy Severe Burgos on Verified 06/20/24 16:11 skin/Blisters Physical Exam Vitals: Vital Signs Temp Pulse Resp BP Pulse Ox 06/21/24 08:00 98.1 F 80 16 120/74 06/21/24 05:00 80 17 107/72 06/21/24 00:00 80 17 123/73 97 06/20/24 18:30 79 18 156/80 100 06/20/24 17:30 79 18 158/108 100 06/20/24 12:34 97.9 F 85 17 151/96 98 Intake and Output 06/20/24 06/21/24 06/21/24 22:59 06:59 14:59 Intake Total 156.167 Balance 156.167 Intake: Intake, IV Titration 156.167 Amount Heparin Sod,Pork in 0.45% 156.167 NaCl 25,000 unit In 0.45 % NaCl 1 250ml.bag @ 9. 585 UNITS/KG/HR 10 mls/hr IV .Q24H [facility] Rx#: [id number] Results 06/21/24 09:24 06/20/24 15:34 Cardiac Enzymes 06/20/24 06/20/24 06/20/24 Range/Units 13:38 15:34 18:07 AST 23 (17-59) U/L Troponin I 0.280 H* 0.224 H* (0.000-0.034) ng/mL 06/20/24 Range/Units 22:46 AST (17-59) U/L Troponin I 0.308 H* (0.000-0.034) ng/mL Coagulation 06/20/24 06/20/24 06/21/24 Range/Units 15:34 22:46 07:40 PT 10.8 (10.0-12.5) sec APTT 23.2 39.5 H 37.0 H (22.0-30.0) sec CBC 06/20/24 Range/Units 15:34 WBC 14.4 H (3.8-10.6) k/uL RBC 5.00 (4.30-5.90) m/uL Hgb 14.7 (13.0-17.5) gm/dL Hct 45.4 (39.0-53.0) % Plt Count 282 (150-450) k/uL Comprehensive Metabolic Panel 06/20/24 Range/Units 15:34 Sodium 138 (137-145) mmol/L Potassium 4.1 (3.5-5.1) mmol/L Chloride 105 (98-107) mmol/L Carbon Dioxide 22 (22-30) mmol/L BUN 5 L (9-20) mg/dL Creatinine 0.72 (0.66-1.25) mg/dL Glucose 152 H (74-99) mg/dL Calcium 9.4 (8.4-10.2) mg/dL AST 23 (17-59) U/L ALT 14 (4-49) U/L Alkaline Phosphatase 99 (38-126) U/L Total Protein 7.2 (6.3-8.2) g/dL Albumin 4.3 (3.5-5.0) g/dL Current Medications Generic Name Dose Route Start Last Admin Trade Name Freq PRN Reason Stop Dose Admin Aspirin 325 mg 06/21/24 09:00 06/21/24 08:52 Aspirin 325 Mg Tab PO 325 mg DAILY [facility] Administration Atorvastatin Calcium 80 mg 06/21/24 09:30 Atorvastatin 80 Mg Tab PO DAILY [facility] Heparin Sodium (Porcine) 0 unit 06/21/24 09:16 Heparin Sodium 1,000 Un/Ml (10ml Vl) IV PER PROTOCOL PRN Low PTT Protocol Heparin Sodium/Sodium Chloride 250 mls @ 12.519 mls/hr 06/21/24 09:30 25,000 unit/ Sodium Chloride IV .[id number] [facility] Protocol 12 UNITS/KG/HR Heparin Sodium (Porcine) 10, 1,001 mls @ 999 mls/hr 06/22/24 07:00 000 unit/ Sodium Chloride IRRIGATION 06/22/24 23:00 ONCE PRN INTRA-OP Heparin Sodium (Porcine) 2,500 250.5 mls @ 250 mls/hr 06/22/24 07:00 unit/ Sodium Chloride IRRIGATION 06/22/24 23:00 ONCE PRN INTRA-OP Metoprolol Tartrate 50 mg 06/20/24 21:00 06/21/24 08:52 Metoprolol Tartrate 50 Mg Tab PO 50 mg BID [facility] Administration Nicotine 1 patch 06/20/24 19:00 06/21/24 08:52 Nicotine 21mg/24hr Patch TRANSDERM 1 patch DAILY [facility] Administration Nitroglycerin 0.4 mg 06/20/24 17:32 Nitroglycerin Sl Tabs 0.4 Mg Tab SUBLINGUAL Q5M PRN Chest Pain Nitroglycerin 1 inch 06/20/24 18:00 06/21/24 08:51 Nitroglycerin Oint 1 Inch/Gm Packet TOPICAL 1 inch Q6HR [facility] Administration Nitroglycerin 0.4 mg 06/21/24 09:21 Nitroglycerin Sl Tabs 0.4 Mg Tab SUBLINGUAL Q5M PRN Chest Pain Intake and Output 0306/21/24 06/21/24 22:59 06:59 14:59 Intake Total 156.167 Balance 156.167 Intake: Intake, IV Titration 156.167 Amount Heparin Sod,Pork in 0.45% 156.167 NaCl 25,000 unit In 0.45 % NaCl 1 250ml.bag @ 9. 585 UNITS/KG/HR 10 mls/hr IV .Q24H [facility] Rx#: [id number] 06/20/24 15:34 06/20/24 15:34
--- NOTE | 2024-06-21 13:17 | P.HPIM ---
History of Present Illness H&P Date: 06/21/24 Chief Complaint: Chest pain, shortness of breath This is a 63-year-old -[place] male well-known to my practice who presented to the hospital with chest pain shortness of breath patient has 3 elevated troponins,, this patient is a known diabetic complains of minimal a bdominal pain no nausea left-sided chest discomfort Review of Systems Constitutional: Reports as per HPI, Reports weakness Ears, nose, mouth and throat: Reports as per HPI Cardiovascular: Reports chest pain, Reports dyspnea on exertion, Reports high blood pressure, Reports shortness of breath Respiratory: Reports dyspnea Gastrointestinal: Reports abdominal pain (Mild diffuse) Genitourinary: Reports polyuria Musculoskeletal: Reports as per HPI Integumentary: Reports as per HPI Neurological: Reports as per HPI Psychiatric: Reports as per HPI Endocrine: Reports excessive thirst, Reports polydipsia, Reports polyphagia, Reports polyuria Past Medical History Past Medical History: CVA/TIA, Hypertension History of Any Multi-Drug Resistant Organisms: MRSA, None Reported Date of last positivie culture/infection: 01/30/2013 MDRO Source:: left leg and back Past Surgical History: Tonsillectomy Past Anesthesia/Blood Transfusion Reactions: No Reported Reaction Past Psychological History: No Psychological Hx Reported Smoking Status: Current every day smoker Past Alcohol Use History: None Reported Past Drug Use History: None Reported - Past Family History Father Family Medical History: Cancer Mother Family Medical History: Cancer Sister(s) Family Medical History: Cancer Medications and Allergies Home Medications Medication Instructions Recorded Confirmed Type Finasteride [Proscar] 5 mg PO DAILY 08/01/22 06/20/24 History Latanoprost [Latanoprost 0.005%] 1 drop BOTH EYES HS 08/01/22 06/20/24 History Simvastatin [Zocor] 20 mg PO HS 08/01/22 06/20/24 History Tamsulosin HCl [Flomax] 0.4 mg PO DAILY 08/01/22 06/20/24 History amLODIPine [Norvasc] 10 mg PO DAILY 08/01/22 06/20/24 History lisinopriL [Zestril] 20 mg PO DAILY 08/01/22 06/20/24 History Clopidogrel [Plavix] 75 mg PO DAILY #30 tab 08/07/22 06/20/24 Rx Metoprolol Tartrate [Lopressor] 12.5 mg PO BID 06/20/24 06/20/24 History Semaglutide [Ozempic] 0.5 mg SQ MARTÍNEZ 06/20/24 06/20/24 History Sildenafil Citrate 100 mg PO DAILY PRN 06/20/24 06/20/24 History Allergies Allergy/AdvReac Type Severity Reaction Status Date / Time Penicillins Allergy Severe Burgos on Verified 06/20/24 16:11 skin/Blisters Physical Exam Osteopathic Statement: *. No significant issues noted on an osteopathic structural exam other than those noted in the History and Physical/Consult. Vitals: Vital Signs Temp Pulse Resp BP Pulse Ox 06/21/24 12:44 97.5 F L 66 18 157/94 100 06/21/24 08:00 98.1 F 80 16 120/74 06/21/24 05:00 80 17 107/72 06/21/24 00:00 80 17 123/73 97 06/20/24 18:30 79 18 156/80 100 06/20/24 17:30 79 18 158/108 100 Intake and Output 06/20/24 06/21/24 06/21/24 22:59 06:59 14:59 Intake Total 156.167 Balance 156.167 Intake: Intake, IV Titration 156.167 Amount Heparin Sod,Pork in 0.45% 156.167 NaCl 25,000 unit In 0.45 % NaCl 1 250ml.bag @ 9. 585 UNITS/KG/HR 10 mls/hr IV .Q24H [facility] Rx#: [id number] General: [Patient awake, alert and oriented times 3. Patient in no acute distress.] HEENT: [PERRL. EOMI. No pharyngeal erythema or exudate.] Neck: [No adenopathy.] Cardiac: [Heart regular in rate and rhythm. No S3. No S4. No clicks, rubs. No murmur.] Lungs: [Clear to auscultation bilaterally.] Abdomen: [No mass. No organomegaly. Bowel sounds presnt and normoactive in all 4 quadrants.] Extremes: [No edema no cyanosis no claudication normal pulses] : Normal male genitalia Musculoskeletal: [No joint erythema, edema or tenderness.] Skin: [No rash.] Neurologic: [No lateralizing deficits. CN II - XII grossly intact.] Lymphatic: [No adenopathy.] Results CBC & Chem 7: 06/21/24 09:24 06/20/24 15:34 Labs: Abnormal Lab Results - Last 24 Hours (Table) 06/20/24 06/20/24 06/20/24 Range/Units 13:38 15:34 15:34 WBC 14.4 H (3.8-10.6) k/uL Neutrophils # 10.0 H (1.3-7.7) k/uL APTT (22.0-30.0) sec BUN 5 L (9-20) mg/dL Glucose 152 H (74-99) mg/dL Troponin I 0.280 H* (0.000-0.034) ng/mL 06/20/24 06/20/24 06/20/24 Range/Units 18:07 22:46 22:46 WBC (3.8-10.6) k/uL Neutrophils # (1.3-7.7) k/uL APTT 39.5 H (22.0-30.0) sec BUN (9-20) mg/dL Glucose (74-99) mg/dL Troponin I 0.224 H* 0.308 H* (0.000-0.034) ng/mL 06/21/24 06/21/24 06/21/24 Range/Units 07:40 09:24 09:24 WBC 16.0 H (3.8-10.6) k/uL Neutrophils # 11.1 H (1.3-7.7) k/uL APTT 37.0 H 38.2 H (22.0-30.0) sec BUN (9-20) mg/dL Glucose (74-99) mg/dL Troponin I (0.000-0.034) ng/mL Thrombosis Risk Factor Assmnt - DVT/VTE Prophylaxis DVT/VTE Prophylaxis: Pharmacologic Prophylaxis ordered Assessment and Plan (1) Chest pain Current Visit: Yes Status: Acute Code(s): R07.9 - CHEST PAIN, UNSPECIFIED SNOMED Code(s): 62390950 (2) Elevated troponin Current Visit: Yes Status: Acute Code(s): R79.89 - OTHER SPECIFIED ABNORMAL FINDINGS OF BLOOD CHEMISTRY SNOMED Code(s): 337763242 (3) Type 2 diabetes mellitus Current Visit: Yes Status: Acute Code(s): E11.9 - TYPE 2 DIABETES MELLITUS WITHOUT COMPLICATIONS SNOMED Code(s): 27192000 (4) Acute non-ST elevation myocardial infarction (NSTEMI) Current Visit: Yes Status: Acute Code(s): I21.4 - NON-ST ELEVATION (NSTEMI) MYOCARDIAL INFARCTION SNOMED Code(s): 806580079 (5) Acute renal failure Current Visit: No Status: Acute Code(s): N17.9 - ACUTE KIDNEY FAILURE, UNSPECIFIED SNOMED Code(s): 30421578 Plan: Admit patient to the hospital Cardiology consult ordered Probable cardiac catheterization 2D echo Will continue to follow closely Time with Patient: Greater than 30
[2024-06-21] MEDS: MIDAZOLAM 2 MG/2 ML VIAL IVP ONE ×2 (15:00→15:59)
[2024-06-21] MEDS: LIDOCAINE 1% INJ 10MG/ML (20 ML MDV) SQ ONE (15:01)
[2024-06-21] MEDS: VERAPAMIL SYRINGE (5 MG/10 ML) INTRAARTER ONE (15:02)
[2024-06-21] MEDS: SODIUM CHLORIDE 0.9% 1,000 ML IV ONE (15:02)
[2024-06-21] MEDS: HEPARIN SODIUM,PORCINE 10,000 UNIT in SODIUM CHLORIDE 0.9% 1,000 ML IRRIGATION ONE (15:06)
[2024-06-21] MEDS: HEPARIN SODIUM,PORCINE (1 ML) 2,500 UNIT in SODIUM CHLORIDE 0.9% 250 ML IRRIGATION ONE (15:06)
[2024-06-21] MEDS: HEPARIN SODIUM 1,000 UN/ML (10ML VL) IVP ONE (15:15)
[2024-06-21] MEDS: TICAGRELOR 90 MG TAB PO ONE (15:24)
[2024-06-21] MEDS: fentaNYL (PF) 50 MCG/1 ML VIAL IVP ONE (15:33)
[2024-06-21] MEDS: IOPAMIDOL-370 100ML BTL INJ ONE ×3 (15:35→16:28)
[2024-06-21] MEDS: SODIUM CHLORIDE 0.9% 250 ML IV ONE (15:59)
[2024-06-21] MEDS ORDERED: RX INFO: IV CONTRAST WAS GIVEN 1 EACH MISC MISCELLANE PRN (16:31)
[2024-06-21] MEDS ORDERED: MAG HYDROX/AL HYDROX/SIMETH 30 ML CUP PO PRN (16:31)
[2024-06-21] MEDS ORDERED: ATROPINE SULFATE 0.1 MG/ML 10ML SYRINGE IV PRN (16:31)
[2024-06-21] MEDS ORDERED: ZOLPIDEM 5 MG TAB PO PRN (16:31)
--- NOTE | 2024-06-21 16:39 | P.PCN ---
Date of Procedure: 06/21/24 Operative Findings: CARDIAC CATHETERIZATION AND PERCUTANEOUS CORONARY INTERVENTION PERFORMING PHYSICIAN: Wiley Steele MD, [facility] PROCEDURE PERFORMED: 1. Nonselective right and selective left coronary angiogram and left heart catheterization and an aortic root angiogram 2. Successful stenting of proximal and mid LAD using 3.5 x 18 and 3.0 x 23 mm Xience JEANINE with an excellent angiographic results 3. Adjunctive use of IVUS 4. Ultrasound-guided access of the right radial artery INDICATION: Acute non-ST elevation myocardial infarction COMPLICATION: None APPROACH: Right radial artery LEVEL OF SEDATION: Moderate with the sedation time off 86 minutes PROCEDURE DESCRIPTION: After obtaining informed consent the patient was brought to the cardiac [employer]. The right radial artery was cannulated using micropuncture technique under ultrasound guidance a micropuncture wire passed easily then I placed a 6 Sami 11 cm sheath at the right radial artery with anticoagulation was initiated using heparin with continuous ACT monitoring. Also the patient was given 2 mg of verapamil intra-arterial. Attempting engaging the RCA using JR4 and AL-1 catheters was unsuccessful. Left coronary angiogram performed using JL 3.5 catheters. After that left heart catheterization was performed using the JR4 catheter which crossed the aortic valve. After that I decided to intervene on the LAD. I did start anticoagulation with Coumadin and antiplatelet was initiated using Brilinta. I did engage the left main using JL 3.5 guiding catheter. I did wired the LAD using a run-through wire and also I did wired the left circumflex using a run-through wire. I did IVUS of the LAD and the IVUS catheter was only able to cross the very proximal LAD which showed a diameter around 3.5 mm with a calcified vessel. Predilatation was performed using 3 mm NC balloon before I deployed 3.5 x 18 mm stent which was postdilated using 3.5 mm balloon. An angiogram showed an area distal to the stented segment appeared to be hazy and calcified and diseased. I decided to stent that segment. I did predilated the lesion using a 3 mm regular balloon before I deployed a 3.0 x 23 mm stent which was postdilated using 3.0 NC balloon. Final angiogram showed excellent angiographic results. GuideLiner was used also. The procedure was completed with no complication SELECTIVE CORONARY ANGIOGRAM: The right coronary artery: Was not well-opacified it does have a posterior takeoff Left main: Is angiographically normal The left circumflex: Large caliber vessel appears to be a dominant vessel with severe disease involving the midportion The left anterior descending artery: Has critical disease involving the ostial LAD and severe disease involving the mid LAD HEMODYNAMICS: The LVEDP was 12 mmHg with no significant gradient across the aortic valve CONCLUSION: 1. Critical disease involving the ostial LAD and severe disease involving the mid LAD. I did perform successful PCI of the ostial and mid LAD as described above 2. Severe disease involving a dominant mid left circumflex coronary artery. That disease has been treated medically at this point giving the limited amount of IV contrast 3. The RCA was not well-opacified and has posterior takeoff. 4. Normal left-sided filling pressure POSTPROCEDURE MANAGEMENT: 1. Dual antiplatelet therapy using aspirin and Brilinta for 12 month 2. Aggressive cholesterol control 3. Follow-up with the patient
[2024-06-21] MEDS: SODIUM CHLORIDE 0.9% 1,000 ML in EMPTY BAG 1 BAG IV SCH (17:45)
[2024-06-21] MEDS ORDERED: DEXTROSE 50% SYRINGE 50 ML IVP PRN ×2 (18:01)
[2024-06-21 19:53] VITALS: RESP 18
[2024-06-21 19:53] LABS: Glucose,Whole Blood 123 mg/dL (70-110)
[2024-06-21] MEDS: INSULIN LISPRO (HumaLOG) 100 UNIT/ML 10 mL VL SQ SCH (20:48)
[2024-06-21] MEDS: TICAGRELOR 90 MG TAB PO SCH (20:51)
[2024-06-21] MEDS: LATANOPROST 0.005% OPHTH DROPS 2.5 ML BTL BOTH EYES SCH (20:51)
[2024-06-21] MEDS: INSULIN GLARGINE (LANTUS) 100 UNIT/ML SYR SQ SCH (20:51)
[2024-06-21] MEDS ORDERED: METOPROLOL TARTRATE 25 MG TAB PO SCH (21:00)
[2024-06-22 05:53] LABS: Glucose,Whole Blood 84 mg/dL (70-110)
[2024-06-22] MEDS ORDERED: HEPARIN SODIUM,PORCINE 10,000 UNIT in SODIUM CHLORIDE 0.9% 1,000 ML IRRIGATION PRN (07:00)
[2024-06-22] MEDS ORDERED: HEPARIN SODIUM,PORCINE (1 ML) 2,500 UNIT in SODIUM CHLORIDE 0.9% 250 ML IRRIGATION PRN (07:00)
[2024-06-22 07:34] LABS: Basophils % (A) 0 %; Eosinophils # (A) 0.2 k/uL (0-0.7); Eosinophils % (A) 1 %; HGB 13.3 gm/dL (13.0-17.5); Lymphocytes # (A) 2.1 k/uL (1.0-4.8); Lymphocytes % (A) 13 %; MCH 29.6 pg (25.0-35.0); MCHC 32.5 g/dL (31.0-37.0); MCV 90.8 fL (80.0-100.0); Mean Platelet Volume 7.5; Monocytes # (A) 1.1 k/uL (0-1.0); Monocytes % (A) 7 %; Neutrophils # (A) 12.5 k/uL (1.3-7.7); Neutrophils % (A) 77 %; Platelet Count 250 k/uL (150-450); RBC 4.52 m/uL (4.30-5.90); RDW 13.3 % (11.5-15.5); WBC 16.2 k/uL (3.8-10.6)
[2024-06-22 07:37] LABS: Prothrombin Time 10.8 sec (10.0-12.5)
[2024-06-22 07:45] LABS: African American GFR (CKD) >90 (>60 ml/min/1.73 sqM); Non-African American GFR(CKD) >90 (>60 ml/min/1.73 sqM)
[2024-06-22] MEDS: ASPIRIN 81 MG PO SCH (07:56)
[2024-06-22] MEDS: amLODIPine 10 MG TAB PO SCH (07:56)
[2024-06-22] MEDS: FINASTERIDE 5 MG TAB PO SCH (07:56)
[2024-06-22] MEDS: lisinopriL 20 MG TAB PO SCH (07:56)
[2024-06-22] MEDS: TAMSULOSIN 0.4 MG CAP.ER.24H PO SCH (07:56)
--- NOTE | 2024-06-22 08:20 | P.PN ---
Subjective Progress Note Date: 06/22/24 The patient is a pleasant 63-year-old old -[place] gentleman with a past medical history significant for CAD as well as hypertension and dyslipidemia who was admitted to the hospital with chest discomfort and ruled in for acute non- STEMI. He underwent a heart catheterization and was found to have severe disease involving the LCx with diffuse nature of the disease and severe disease involving the LAD where he underwent PCI of the LAD in the proximal and midportion with a good angiographic results. June 22, 2024 The patient was seen and evaluated this morning with he is asymptomatic. The r ight radial site is soft and nontender with no bruises with a good pulse. He is on dual antiplatelet therapy with. The pressure is consistent with stage II hypertension and with that and going to increase the dose of lisinopril from 20 mg p.o. daily to 30 mg p.o. daily. The physical examination is remarkable for regular rhythm with a soft systolic murmur and clear pitting sounds bilaterally and no edema was noted Assessment Acute non-STEMI Severe CAD and status post PCI of the LAD Severe residual disease involving the LCx Unknown EF Multiple comorbid conditions Plan Continue the current medical regimen Continue dual antiplatelet therapy Consider medical treatment for the LCx unless he becomes symptomatic Follow-up on the echocardiogram Monitor the patient for additional 24 hours Objective - Vital Signs Vital signs: Vital Signs Temp 98.2 F 06/22/24 03:39 Pulse 89 06/22/24 03:39 Resp 18 06/22/24 03:39 BP 165/92 06/22/24 03:39 Pulse Ox 97 06/22/24 03:39 FiO2 Intake & Output 06/21/24 06/22/24 06/22/24 18:59 06:59 18:59 Intake Total 896.167 Output Total 300 Balance 596.167 Weight 104.326 kg 103.4 kg Intake: IV 340 Intake, IV Titration 306.167 Amount Heparin Sod,Pork in 0.45% 156.167 NaCl 25,000 unit In 0.45 % NaCl 1 250ml.bag @ 9. 585 UNITS/KG/HR 10 mls/hr IV .Q24H [facility] Rx#: [id number] Sodium Chloride 0.9% 1, 150 000 ml In Empty Bag 1 bag @ 75 mls/hr IV .[id number] [facility] Rx#:[id number] Oral 250 Output: Urine 300 Other: Voiding Method Toilet # Voids 2 - Labs CBC & Chem 7: 06/22/24 06:22 06/22/24 07:01 Labs: Abnormal Lab Results - Last 24 Hours (Table) 06/21/24 06/21/24 06/21/24 Range/Units 09:24 09:24 09:27 WBC 16.0 H (3.8-10.6) k/uL Neutrophils # 11.1 H (1.3-7.7) k/uL Monocytes # (0-1.0) k/uL APTT 38.2 H (22.0-30.0) sec POC Glucose (mg/dL) (70-110) mg/dL Hemoglobin A1c 6.1 H (<=6.0) % 06/21/24 06/22/24 Range/Units 19:51 06:22 WBC 16.2 H (3.8-10.6) k/uL Neutrophils # 12.5 H (1.3-7.7) k/uL Monocytes # 1.1 H (0-1.0) k/uL APTT (22.0-30.0) sec POC Glucose (mg/dL) 123 H (70-110) mg/dL Hemoglobin A1c (<=6.0) %
[2024-06-22 09:58] LABS: Chol/HDL Ratio 3.23 Ratio; LDL Cholesterol,Calculated 60.9 mg/dL (0.0-131.0); VLDL Calculation 17.14 mg/dL (5.00-40.00)
[2024-06-22] MEDS: lisinopriL 10 MG TAB PO SCH (10:00)
--- NOTE | 2024-06-22 10:14 | P.PN ---
Subjective Progress Note Date: 06/22/24 H&P Date: 06/21/24 Chief Complaint: Chest pain, shortness of breath This is a 63-year-old -[place] male well-known to my practice who presented to the hospital with chest pain shortness of breath patient has 3 elevated troponins,, this patient is a known diabetic complains of minimal abdominal pain no nausea left-sided chest discomfort evaluated by cardiology, underwent cardiac catheterization reporting critical disease involving ostial LAD and severe disease of the mid LAD, severe disease involving dominant mid left circumflex-that disease had been treated medically, with stenting of the proximal/mid LAD; RCA not well-opacified and has posterior takeoff, normal left-sided filling pressure. Tolerated procedure well. Placed on dual antiplatelet therapy with aspirin and Brilinta. Telemetry sinus rhythm hypertensive this morning, ROBBIE inhibitor dose increased. Denies chest pain, palpitations or shortness of breath. Maintaining O2 sats in the high 90s on room air. Objective - Vital Signs Vital signs: Vital Signs Temp 98.2 F 06/22/24 03:39 Pulse 89 06/22/24 03:39 Resp 18 06/22/24 03:39 BP 165/92 06/22/24 03:39 Pulse Ox 97 06/22/24 03:39 FiO2 Intake & Output 06/21/24 06/22/24 06/22/24 18:59 06:59 18:59 Intake Total 896.167 240 Output Total 300 Balance 596.167 240 Weight 104.326 kg 103.4 kg Intake: IV 340 Intake, IV Titration 306.167 Amount Heparin Sod,Pork in 0.45% 156.167 NaCl 25,000 unit In 0.45 % NaCl 1 250ml.bag @ 9. 585 UNITS/KG/HR 10 mls/hr IV .Q24H [facility] Rx#: [id number] Sodium Chloride 0.9% 1, 150 000 ml In Empty Bag 1 bag @ 75 mls/hr IV .[id number] [facility] Rx#:[id number] Oral 250 240 Output: Urine 300 Other: Voiding Method Toilet # Voids 2 - Exam General: [Patient awake, alert and oriented times 3. no acute distress.] HEENT: Atraumatic, normocephalic, PERRL. EOMI. MMM. Neck: Supple, no JVD Cardiac: [Heart regular in rate and rhythm. Positive systolic murmur Lungs: Unlabored, equal air entry, clear to auscultation bilaterally. Abdomen: [Soft, nondistended, nontender, no organomegaly appreciated. Positive bowel sounds.] Extremes: [No edema no cyanosis no claudication normal pulses] Skin: [No rash. Warm and dry, no edema, no calf tenderness.] Neurologic: CN II - XII grossly intact.] - Labs CBC & Chem 7: 06/22/24 06:22 06/22/24 07:01 Labs: Abnormal Lab Results - Last 24 Hours (Table) 06/21/24 06/21/24 06/21/24 Range/Units 09:24 09:27 19:51 WBC (3.8-10.6) k/uL Neutrophils # (1.3-7.7) k/uL Monocytes # (0-1.0) k/uL APTT 38.2 H (22.0-30.0) sec POC Glucose (mg/dL) 123 H (70-110) mg/dL Hemoglobin A1c 6.1 H (<=6.0) % 06/22/24 Range/Units 06:22 WBC 16.2 H (3.8-10.6) k/uL Neutrophils # 12.5 H (1.3-7.7) k/uL Monocytes # 1.1 H (0-1.0) k/uL APTT (22.0-30.0) sec POC Glucose (mg/dL) (70-110) mg/dL Hemoglobin A1c (<=6.0) % Assessment and Plan Assessment: (1) Acute non-ST elevation myocardial infarction (NSTEMI) ,status post cardiac catheterization, CAD with stenting of proximal/mid LAD Current Visit: Yes Status: Acute Code(s): I21.4 - NON-ST ELEVATION (NSTEMI) MYOCARDIAL INFARCTION SNOMED Code(s): 000479784 (2) hypertension (3) Type 2 diabetes mellitus, hemoglobin A1c 6.1 Current Visit: Yes Status: Acute Code(s): E11.9 - TYPE 2 DIABETES MELLITUS WITHOUT COMPLICATIONS SNOMED Code(s): 98096119 (4) ongoing nicotine dependence Plan: Continue on current medication regime ,monitoring and symptomatic treatment. Dual antiplatelet therapy. Antihypertensives further adjusted. Close monitoring for another 24 hours with discharge planning in progress for tomorrow pending cardiology clearance. Jardiance will be added to DC med regimen as requested per PCP. The impression and plan of care has been dictated as directed. : I performed a history and examination of this patient, discussed the same with the dictator. I agree with the dictator's note ,documented as a scribe. Any additional findings or plans will be noted.
[2024-06-22 11:28] LABS: Glucose,Whole Blood 113 mg/dL (70-110)
[2024-06-22 13:23] VITALS: BMI 34.6
[2024-06-22 16:36] LABS: Glucose,Whole Blood 113 mg/dL (70-110)
--- NOTE | 2024-06-22 17:08 | CA ---
Transthoracic Echo Report Name: Skinny Rosas Age: 63 Gender: M : 1960 Exam Date: 06/22/2024 14:35 Exam Location: [facility] Ht (in): 68 Wt (lb): 230 Ordering Physician: Vito Diaz DO Attending/Referring Phys: Issa Howard DO ([email or web address]) [employer] Letty Abdul RDCS Procedure CPT: Indications: Elevated troponins patient is in the ER Cardiac Hx: Technical Quality: Fair Contrast 1: Total Dose (mL): Contrast 2: Total Dose (mL): MEASUREMENTS (Male / Female) Normal Values 2D ECHO LV Diastolic Diameter PLAX 5.7 cm 4.2 - 5.9 / 3.9 - 5.3 cm LV Systolic Diameter PLAX 3.8 cm IVS Diastolic Thickness 1.0 cm 0.6 - 1.0 / 0.6 - 0.9 cm LVPW Diastolic Thickness 1.1 cm 0.6 - 1.0 / 0.6 - 0.9 cm LV Relative Wall Thickness 0.4 LVOT Diameter 2.4 cm LV Diastolic Volume MOD BP 192.0 cm??? 67 - 155 / 56 - 104 cm??? LV Systolic Volume MOD BP 82.6 cm??? 22 - 58 / 19 - 49 cm??? LV Ejection Fraction MOD BP 57.0 % >= 55 % LV Cardiac Index MOD BP 2736.9 cm???/min???m??? LV Diastolic Volume MOD 4C 189.9 cm??? LV Systolic Volume MOD 4C 85.1 cm??? LV Ejection Fraction MOD 4C 55.2 % LV Cardiac Index MOD 4C 2623.7 cm???/min???m??? LV Diastolic Length 4C 9.6 cm LV Systolic Length 4C 8.2 cm LV Diastolic Volume MOD 2C 182.2 cm??? LV Systolic Volume MOD 2C 80.1 cm??? LV Ejection Fraction MOD 2C 56.0 % LV Cardiac Index MOD 2C 2555.2 cm???/min???m??? LV Diastolic Length 2C 9.0 cm LV Systolic Length 2C 8.2 cm LA Volume 76.7 cm??? 18 - 58 / 22 - 52 cm??? LA Volume Index 33.7 cm???/m??? 16 - 28 cm???/m??? Ascending Aorta Diameter 3.2 cm DOPPLER AV Peak Velocity 143.9 cm/s AV Peak Gradient 8.3 mmHg AV Mean Velocity 96.9 cm/s AV Mean Gradient 4.3 mmHg AV Velocity Time Integral 25.7 cm LVOT Peak Velocity 126.4 cm/s LVOT Peak Gradient 6.4 mmHg LVOT Velocity Time Integral 21.5 cm LVOT Stroke Volume 95.5 cm??? LVOT Stroke Volume Index 44.0 ml/m??? LVOT Cardiac Index 2390.3 cm???/min???m??? AV Area Cont Eq vti 3.7 cm??? AV Area Cont Eq pk 3.9 cm??? MV Area PHT 4.8 cm??? Mitral E Point Velocity 66.5 cm/s Mitral A Point Velocity 94.9 cm/s Mitral E to A Ratio 0.7 MV Deceleration Time 157.1 ms PV Peak Velocity 95.6 cm/s PV Peak Gradient 3.7 mmHg FINDINGS Left Ventricle Left ventricular ejection fraction is estimated at 55-60 %. Moderately increased left ventricular diastolic volume. Moderately increased left ventricular systolic volume. Left ventricular wall thickness normal. No obvious regional wall motion abnormalities. Right Ventricle Right ventricle not well visualized. Normal right ventricular global systolic function. Unable to estimate the right ventricular systolic pressure. Right Atrium Right atrium not well visualized. Left Atrium Mildly increased left atrial volume. Mildly increased left atrial area. Mitral Valve Structurally normal mitral valve. No evidence for mitral valve prolapse. No mitral stenosis. Trace mitral regurgitation. Aortic Valve Trileaflet aortic valve. No aortic valve stenosis or regurgitation. Tricuspid Valve Structurally normal tricuspid valve. No tricuspid stenosis. No tricuspid regurgitation. Pulmonic Valve Structurally normal pulmonic valve. No pulmonic stenosis. No pulmonic regurgitation. Pericardium No pericardial effusion. Aorta Normal size aortic root and proximal ascending aorta. CONCLUSIONS Normal LV systolic function Mild left atrial enlargement Previewed by: Dr. Milan Prater MD (Electronically Signed) Final Date: 22 June 2024 17:07
[2024-06-22 20:17] LABS: Glucose,Whole Blood 104 mg/dL (70-110)
[2024-06-23 06:14] LABS: Glucose,Whole Blood 74 mg/dL (70-110)
--- NOTE | 2024-06-23 07:56 | P.PN ---
Subjective Progress Note Date: 06/23/24 The patient is a pleasant 63-year-old old -[place] gentleman with a past medical history significant for CAD as well as hypertension and dyslipidemia who was admitted to the hospital with chest discomfort and ruled in for acute non- STEMI. He underwent a heart catheterization and was found to have severe disease involving the LCx with diffuse nature of the disease and severe disease involving the LAD where he underwent PCI of the LAD in the proximal and midportion with a good angiographic results. June 22, 2024 The patient was seen and evaluated this morning with he is asymptomatic. The r ight radial site is soft and nontender with no bruises with a good pulse. He is on dual antiplatelet therapy with. The pressure is consistent with stage II hypertension and with that and going to increase the dose of lisinopril from 20 mg p.o. daily to 30 mg p.o. daily. The physical examination is remarkable for regular rhythm with a soft systolic murmur and clear pitting sounds bilaterally and no edema was noted June 23, 2024 The patient was seen and evaluated this morning. He is asymptomatic and he is hemodynamically stable. The echo showed normal LV systolic function. He is on dual antiplatelet therapy along with high intensity statin. The physical examination is remarkable for regular rhythm with a soft systolic murmur and clear breathing sounds bilaterally and no edema was noted. The patient can be discharged home Assessment Acute non-STEMI Severe CAD and status post PCI of the LAD Severe residual disease involving the LCx Unknown EF Multiple comorbid conditions Plan Continue the current medical regimen Continue dual antiplatelet therapy The patient can be discharged home Objective - Vital Signs Vital signs: Vital Signs Temp 98.4 F 06/23/24 00:00 Pulse 81 06/23/24 04:00 Resp 18 06/23/24 04:00 BP 137/80 06/23/24 04:00 Pulse Ox 98 06/23/24 04:00 FiO2 Intake & Output 06/22/24 06/23/24 06/23/24 18:59 06:59 18:59 Intake Total 720 Balance 720 Weight 103.4 kg 102 kg Intake: Oral 720 Other: Voiding Method Toilet # Voids 2 2 - Labs CBC & Chem 7: 06/22/24 06:22 06/22/24 07:01 Labs: Abnormal Lab Results - Last 24 Hours (Table) 06/21/24 06/22/24 06/22/24 Range/Units 09:27 11:26 16:35 POC Glucose (mg/dL) 113 H 113 H (70-110) mg/dL HDL Cholesterol 35.00 L (40.00-60.00) mg/dL
[2024-06-23 09:07] VITALS: BP 151/86; PULSE 77; TEMP 98.1
--- NOTE | 2024-06-23 12:02 | P.DS ---
Providers Date of admission: 06/20/24 17:34 Expected date of discharge: 06/23/24 Attending physician: Vito Diaz Consults: 06/20/24 17:32 Consult Physician Urgent Consulting Provider: Zheng Juarez Consult Reason/Comments: NSTEMI Do you want consulting provider notified?: Yes 06/21/24 16:31 Consult Physician Routine Consulting Provider: Zheng Juarez Consult Reason/Comments: Post Interventional Patient Do you want consulting provider notified?: Already Contacted Primary care physician: Vito Emily [facility] Course: Final Diagnoses: (1) Acute non-ST elevation myocardial infarction (NSTEMI) ,status post cardiac catheterization, CAD with stenting of proximal/mid LAD Current Visit: Yes Status: Acute Code(s): I21.4 - NON-ST ELEVATION (NSTEMI) MYOCARDIAL INFARCTION SNOMED Code(s): 059050020 (2) hypertension (3) Type 2 diabetes mellitus, hemoglobin A1c 6.1 Current Visit: Yes Status: Acute Code(s): E11.9 - TYPE 2 DIABETES MELLITUS WITHOUT COMPLICATIONS SNOMED Code(s): 06026301 (4) ongoing nicotine dependence Hospital course:This is a 63-year-old -[place] male well-known to my practice who presented to the hospital with chest pain shortness of breath patient has 3 elevated troponins,, this patient is a known diabetic complains of minimal abdominal pain no nausea left-sided chest discomfort evaluated by cardiology, underwent cardiac catheterization reporting critical disease involving ostial LAD and severe disease of the mid LAD, severe disease involving dominant mid left circumflex-that disease had been treated medically, with stenting of the proximal/mid LAD; RCA not well-opacified and has posterior takeoff, normal left-sided filling pressure. Tolerated procedure well. Placed on dual antiplatelet therapy with aspirin and Brilinta. Telemetry sinus rhythm hypertensive this morning, ROBBIE inhibitor dose increased. Denies chest pain, palpitations or shortness of breath. Maintaining O2 sats in the high 90s on room air. Dual antiplatelet therapy. Antihypertensives further adjusted. Close monitoring for another 24 hours with discharge planning in progress for tomorrow pending cardiology clearance. Jardiance will be added to DC med regimen as requested per PCP. 06/23/2024 significant clinical improvement. Telemetry sinus rhythm. Echo reported normal LV function. Blood pressure better controlled. Denies chest pain, palpitations or shortness of breath. Cleared by cardiology for discharge on dual antiplatelet therapy, high intensity statin and increased ROBBIE inhibitor dose. Patient will be discharged home today in stable condition with guarded prognosis. The impression and plan of care has been dictated as directed. : I performed a history and examination of this patient, discussed the same with the dictator. I agree with the dictator's note ,documented as a scribe. Any additional findings or plans will be noted. Patient Condition at Discharge: Stable Plan - Discharge Summary Discharge Rx Participant: Yes New Discharge Prescriptions: New Atorvastatin [Lipitor] 80 mg PO DAILY #30 tab Nitroglycerin Sl Tabs [Nitrostat] 0.4 mg SUBLINGUAL Q5M PRN #100 tab PRN Reason: Chest Pain Ticagrelor [Brilinta] 90 mg PO BID #60 tab Metoprolol Tartrate [Lopressor] 50 mg PO BID #60 tab lisinopriL [Zestril] 30 mg PO DAILY #90 tab Aspirin EC [Ecotrin Low Dose] 81 mg PO DAILY #30 tab Nicotine 21Mg/24Hr Patch [Habitrol] 1 patch TRANSDERM DAILY #30 patch Empagliflozin [Jardiance] 10 mg PO DAILY #30 tablet Continue Tamsulosin HCl [Flomax] 0.4 mg PO DAILY amLODIPine [Norvasc] 10 mg PO DAILY Finasteride [Proscar] 5 mg PO DAILY Latanoprost [Latanoprost 0.005%] 1 drop BOTH EYES HS Semaglutide [Ozempic] 0.5 mg SQ MARTÍNEZ Discontinued Simvastatin [Zocor] 20 mg PO HS Clopidogrel [Plavix] 75 mg PO DAILY #30 tab Metoprolol Tartrate [Lopressor] 12.5 mg PO BID lisinopriL [Zestril] 20 mg PO DAILY No Action Sildenafil Citrate 100 mg PO DAILY PRN PRN Reason: E.D. Discharge Medication List Finasteride [Proscar] 5 mg PO DAILY 08/01/22 [History] Latanoprost [Latanoprost 0.005%] 1 drop BOTH EYES HS 08/01/22 [History] Tamsulosin HCl [Flomax] 0.4 mg PO DAILY 08/01/22 [History] amLODIPine [Norvasc] 10 mg PO DAILY 08/01/22 [History] Semaglutide [Ozempic] 0.5 mg SQ MARTÍNEZ 06/20/24 [History] Sildenafil Citrate 100 mg PO DAILY PRN 06/20/24 [History] Aspirin EC [Ecotrin Low Dose] 81 mg PO DAILY #30 tab 06/22/24 [Rx] Atorvastatin [Lipitor] 80 mg PO DAILY #30 tab 06/22/24 [Rx] Empagliflozin [Jardiance] 10 mg PO DAILY #30 tablet 06/22/24 [Rx] Metoprolol Tartrate [Lopressor] 50 mg PO BID #60 tab 06/22/24 [Rx] Nicotine 21Mg/24Hr Patch [Habitrol] 1 patch TRANSDERM DAILY #30 patch 06/22/24 [Rx] Nitroglycerin Sl Tabs [Nitrostat] 0.4 mg SUBLINGUAL Q5M PRN #100 tab 06/22/24 [Rx] Ticagrelor [Brilinta] 90 mg PO BID #60 tab 06/22/24 [Rx] lisinopriL [Zestril] 30 mg PO DAILY #90 tab 06/23/24 [Rx] Follow up Appointment(s)/Referral(s): Vito Diaz Jr, DO [Primary Care Provider] - 06/29/24 10:30 am Issa Howard DO [STAFF PHYSICIAN] - 1 Week (Office will call you to set up a follow-up appointment) Patient Instructions/Handouts: How to Stop Smoking (DC), After Radial Heart Catheterization (GEN) Activity/Diet/Wound Care/Special Instructions: no smoking Discharge Disposition: HOME SELF-CARE
--- NOTE | 2024-06-25 09:04 | CDI ---
Documentation Clarification Form Date: 06/25/24 From: Heather Rose Admit Date: 06/20/2024 05:34:00 PM Patient Name: Skinny Rosas Visit Number: [id number] Discharge Date: 06/23/2024 11:55:00 AM ATTENTION: The Clinical Documentation Specialists (CDI) and [facility] Coding Staff appreciate your assistance in clarifying documentation. Please respond to the clarification below the line at the bottom and electronically sign. The CDI & [facility] Coding staff will review the response and follow-up if needed. Please note: Queries are made part of the Legal Health Record. If you have any questions, please contact the author of this message via ITS. Doctor/Provider: Vito Diaz, Acute renal failure is documented in the H&P which may lack sufficient clinical evidence/support in the medical record. Additional clarification is requested. History/Risk Factors: T2DM, HTN, smoker Clinical Indicators: Patient with NSTEMI and underwent heart catheterization and PTCA. Documentation states patient has acute renal failure. Cr: 06/20: 0.72, 06/22: 0.89 (Normal range: 0.66 - 1.25) Treatment: No nephrology consult. No IV fluids given. Please clarify if acute renal failure is a valid diagnosis? [ ] No, acute renal failure is ruled out [ ]x Yes, Acute renal failure is present as evidence by (additional clinical support): [ ] Other (please specify diagnosis) [ ] Unable to determine MTDD
== END 2024-06-23 11:55 | disposition home or self-care (01) | DRG 322 ==
LOC: EC 12:30 → 3SCARD 17:34
PROVIDERS: ADMIT Family Medicine; ATTEND Family Medicine
PROC: 027035Z Dilation of Coronary Artery, One Artery with Two Drug-eluting Intraluminal Devices, Percutaneous Approach (ICD-10-PCS; principal; 2024-06-20)
PROC: B3101ZZ Fluoroscopy of Thoracic Aorta using Low Osmolar Contrast (ICD-10-PCS; principal; 2024-06-20)
PROC: B240ZZ3 Ultrasonography of Single Coronary Artery, Intravascular (ICD-10-PCS; principal; 2024-06-20)
PROC: 4A023N7 Measurement of Cardiac Sampling and Pressure, Left Heart, Percutaneous Approach (ICD-10-PCS; principal; 2024-06-20)
PROC: B2111ZZ Fluoroscopy of Multiple Coronary Arteries using Low Osmolar Contrast (ICD-10-PCS; principal; 2024-06-20)
DX: I21.4 Non-ST elevation (NSTEMI) myocardial infarction (principal); N17.9 Acute kidney failure, unspecified; E11.9 Type 2 diabetes mellitus without complications; I10 Essential (primary) hypertension; F17.200 Nicotine dependence, unspecified, uncomplicated; I25.10 Atherosclerotic heart disease of native coronary artery without angina pectoris; I25.84 Coronary atherosclerosis due to calcified coronary lesion; E78.00 Pure hypercholesterolemia, unspecified; Z79.85 Long-term (current) use of injectable non-insulin antidiabetic drugs; Z79.02 Long term (current) use of antithrombotics/antiplatelets; Z79.899 Other long term (current) drug therapy; Z88.0 Allergy status to penicillin; Z86.14 Personal history of Methicillin resistant Staphylococcus aureus infection
CPT/HCPCS: 36415; 71046; 80053; 80061; 82565; 83036; 83735; 84443; 84484; 85025; 85610; 85730; 92978; 93005; 93306; 93458; 93567; 96365; 96366; 99291

== ENCOUNTER 2024-07-13 07:06 | Day surgery (SDC) | payer MEDICARE, OTHER ==
[2024-07-10 11:28] VITALS: BMI 32.8
[~2024-07-13 07:06] MED LIST: ALPRAZolam 0.25 MG TAB PO PRN; ALPRAZolam 0.5 MG TAB PO PRN; ASPIRIN 325 MG TAB PO ONE; ATORVASTATIN 80 MG TAB PO ONE; NITROGLYCERIN SL TABS 0.4 MG TAB SUBLINGUAL PRN
[2024-07-13 07:31] LABS: Glucose,Whole Blood 102 mg/dL (70-110)
[2024-07-13 07:35] VITALS: RESP 18; TEMP 97.8
[2024-07-13] MEDS: SODIUM CHLORIDE 0.9% 1,000 ML in EMPTY BAG 1 BAG IV SCH (07:35)
[2024-07-13] MEDS: IV FLUID CONTINUATION 1,000 ML IV ONE ×2 (07:36→11:30)
[2024-07-13 08:08] LABS: African American GFR (CKD) >90 (>60 ml/min/1.73 sqM); Anion Gap 7 mmol/L; Blood Urea Nitrogen 8 mg/dL (9-20); Calcium 9.2 mg/dL (8.4-10.2); Carbon Dioxide 24 mmol/L (22-30); Chloride 108 mmol/L (98-107); Glucose 110 mg/dL (74-99); Non-African American GFR(CKD) >90 (>60 ml/min/1.73 sqM); Potassium 4.1 mmol/L (3.5-5.1); Sodium 139 mmol/L (137-145)
[2024-07-13] MEDS: HEPARIN SODIUM,PORCINE (1 ML) 2,500 UNIT in SODIUM CHLORIDE 0.9% 250 ML IRRIGATION PRN (08:21)
[2024-07-13] MEDS: HEPARIN SODIUM,PORCINE 10,000 UNIT in SODIUM CHLORIDE 0.9% 1,000 ML IRRIGATION PRN (08:21)
[2024-07-13] MEDS: ASPIRIN 81 MG PO ONE (08:23)
[2024-07-13] MEDS: MIDAZOLAM 2 MG/2 ML VIAL IVP ONE (08:30)
[2024-07-13] MEDS: LIDOCAINE 1% INJ 10MG/ML (20 ML MDV) SQ ONE ×2 (08:32→08:34)
[2024-07-13] MEDS: fentaNYL (PF) 50 MCG/ML 2 ML AMP IVP ONE (08:35)
[2024-07-13] MEDS: VERAPAMIL SYRINGE (5 MG/10 ML) INTRAARTER ONE (08:35)
[2024-07-13] MEDS: IOPAMIDOL-370 100ML BTL INJ ONE ×2 (08:50→09:23)
[2024-07-13] MEDS: NITROGLYCERIN 1000MCG/10ML SYRINGE INTRACORON ONE (09:15)
--- NOTE | 2024-07-13 14:22 | P.PRCINT ---
Percutaneous Coronary Int. - Percutaneous Coronary Intervention Percutaneous Coronary Intervention: PROCEDURES PERFORMED: Left heart catheterization, bilateral coronary angiography, ultrasound guided arterial access, balloon angioplasty of mid circumflex with 2.25 mm noncompliant balloon, intravascular ultrasound left main INDICATION: Staged PCI, inability to perform selective right coronary angiography previously CONSENT:I have discussed the risks, benefits and alternative therapies for the above-mentioned procedure and for both sedation/analgesia as well as necessary blood product administration, if indicated, as they pertain to this patient. The patient has indicated understanding and acceptance of the risks and procedures discussed. PROCEDURE: After the risks, benefits and alternatives of the above mentioned procedure explained in detail with the patient, informed consent was obtained. Patient was taken to the catheterization lab and prepped and draped in usual fashion. Ultrasound guidance was used to assess for arterial access. 1% lidocaine was used to anesthetize the right radial artery. A 6-Chinese sheath was placed in the right radial artery using modified Seldinger technique and ultrasound guidance. A 5-Chinese AR2 catheter was inserted into the left ventricle and pressure measurements were obtained. Attempted RCA angiography was performed with AR-2, AL-1, AL 0.75 guide which were all unsuccessful. Subselective angiograms and prior images show what appears to be very anterior takeoff of the RCA and likely some anomalous origin which may be related to his bicuspid valve. Given contrast threshold further images were not obtained. Next the decision was made to perform PCI of the circumflex. A 6 Chinese CLS 3.5 guide was used to engage the left main. A 0.014 BMW wire was advanced into the distal circumflex. A balloon was easily passed past the proximal LAD, left main and balloon angioplasty was performed with a 2.0 x 12 mm and a 2.25 mm noncompliant balloon. There was however significant difficulty advancing a guideline catheter, stent as well as intravascular ultrasound. There appeared to be suspicion of the proximal LAD stent coming out into the left main inhibiting passing a stent. Given risk of injury to the proximal LAD stent and good result with balloon angioplasty, further attempts were not made. The right radial sheath was removed and a TR band was placed with hemostasis achieved. The patient tolerated the procedure well. Patient was transported back to the post catheterization holding area in stable condition. Conscious Sedation: Patient was monitored under the direct supervision of myself for conscious sedation using Versed and fentanyl for a total duration of 58 minutes HEMODYNAMICS: Aorta: 108/72 LV: 115/8, LVEDP 16 SELECTIVE CORONARY ARTERIOGRAPHY: LEFT MAIN: The left main is a large caliber vessel which bifurcates into the LAD and circumflex. There is no significant stenosis. LEFT ANTERIOR DESCENDING CORONARY ARTERY: LAD is a large caliber vessel which wraps around to the apex. There is a proximal LAD stent and otherwise mild luminal irregularities LEFT CIRCUMFLEX CORONARY ARTERY: Left circumflex is a moderate caliber vessel with a high OM1 takeoff with OM1 being small to moderate caliber and having proximal 40% stenosis. OM 2 is small to moderate caliber with mild luminal irregularities. The mid circumflex in the AV groove has a 99% stenosis at the level of a very small caliber OM 3 branch. Otherwise there is diffuse mild 20 to 30% stenosis. RIGHT CORONARY ARTERY: The right coronary artery was not imaged FINAL IMPRESSION: 1. CAD as described above including patent proximal LAD stent, 40% OM1, 99% mid circumflex stenosis. 2. High left sided filling pressures 3. Status post balloon angioplasty of mid circumflex with 2.25 mm noncompliant balloon with inability to pass stent 4. Likely anomolous RCA take off PLAN: 1. Aggressive risk factor modification per most recent ACC/AHA guidelines. 2. Continue dual antiplatelets for 12 months. Unable to pass stent past the proximal LAD stent and suspicion of stent coming out into the left main. Would not try to be more aggressive passing stent or catheters and monitor response of angioplasty. If warranted consider CTA coronary angiography to evaluate takeoff of RCA.
[2024-07-13 14:34] VITALS: PULSE 64
[2024-07-13] MEDS ORDERED: NON FORMULARY DRUG (Sildenafil Citrate [Sildenafil Citrate] 100 MG Tablet) PO PRN (14:43)
[2024-07-13] MEDS ORDERED: NITROGLYCERIN SL TABS 0.4 MG TAB SUBLINGUAL PRN (14:43)
[2024-07-13] MEDS ORDERED: ATROPINE SULFATE 0.1 MG/ML 10ML SYRINGE IV PRN (14:45)
[2024-07-13] MEDS ORDERED: RX INFO: IV CONTRAST WAS GIVEN 1 EACH MISC MISCELLANE PRN (14:45)
[2024-07-13] MEDS ORDERED: ZOLPIDEM 5 MG TAB PO PRN (14:45)
[2024-07-13] MEDS ORDERED: MAG HYDROX/AL HYDROX/SIMETH 30 ML CUP PO PRN (14:45)
[2024-07-13 15:27] VITALS: BP 128/71
[2024-07-13] MEDS ORDERED: METOPROLOL TARTRATE 50 MG TAB PO SCH (21:00)
[2024-07-13] MEDS ORDERED: LATANOPROST 0.005% OPHTH DROPS 2.5 ML BTL BOTH EYES SCH (21:00)
[2024-07-13] MEDS ORDERED: TICAGRELOR 90 MG TAB PO SCH (21:00)
[2024-07-14] MEDS ORDERED: lisinopriL 10 MG TAB PO SCH (09:00)
[2024-07-14] MEDS ORDERED: NICOTINE 21MG/24HR PATCH TRANSDERM SCH (09:00)
[2024-07-14] MEDS ORDERED: TAMSULOSIN 0.4 MG CAP.ER.24H PO SCH (09:00)
[2024-07-14] MEDS ORDERED: FINASTERIDE 5 MG TAB PO SCH (09:00)
[2024-07-14] MEDS ORDERED: ASPIRIN 81 MG PO SCH (09:00)
[2024-07-14] MEDS ORDERED: ATORVASTATIN 80 MG TAB PO SCH (09:00)
[2024-07-14] MEDS ORDERED: amLODIPine 10 MG TAB PO SCH (09:00)
[2024-07-19] MEDS ORDERED: NON FORMULARY DRUG (Semaglutide [Ozempic] 0.25 MG/0.368 ML Pen.Injctr) SQ SCH (14:43)
== END 2024-07-13 16:24 | disposition home or self-care (01) ==
LOC: CATHCVL 07:06
PROVIDERS: ATTEND Internal Medicine
DX: I25.10 Atherosclerotic heart disease of native coronary artery without angina pectoris (principal); I63.9 Cerebral infarction, unspecified; I10 Essential (primary) hypertension; E11.9 Type 2 diabetes mellitus without complications; T82.858A Stenosis of other vascular prosthetic devices, implants and grafts, initial encounter; Z95.5 Presence of coronary angioplasty implant and graft; Z72.0 Tobacco use; Z88.0 Allergy status to penicillin; Z79.02 Long term (current) use of antithrombotics/antiplatelets; Z79.82 Long term (current) use of aspirin; Z79.899 Other long term (current) drug therapy
CPT/HCPCS: 92978; 92920; 80048; 99152; 99153; C1769; C1894; C1887; C1725 ×2; C1753; C1874; J2250; J1644 ×3; J2003; J3010; Q9967; J2305